=== PATIENT | female | born 1940 | race Caucasian/White ===

== ENCOUNTER → 2016-09-05 | Outpatient (CLI) | payer MEDICARE, BC ==
--- NOTE | 2016-09-09 10:31 | MM ---
Reason for exam: screening (asymptomatic). Last mammogram was performed 2 years and 7 months ago. History: Patient is postmenopausal and history of other cancer. Family history of breast cancer in sister at age 60, breast cancer in mother at age 79, breast cancer in paternal aunt at age 40, and breast cancer in maternal aunt. Benign left mammotome panel of the left breast, March 04, 2006. Benign excisional biopsy of the right breast, 1983. Took hormonal contraceptives for 2 years beginning at age 22. Took estrogen for 10 years beginning at age 49. Physical Findings: A clinical breast exam by your physician is recommended on an annual basis and results should be correlated with mammographic findings. MG 3D Screening Mammo W/Cad Bilateral CC and MLO view(s) were taken. Prior study comparison: November 09, 2015, bilateral MR breast bilat wo/w con. February 01, 2014, bilateral MG screening mammo w CAD. July 30, 2012, bilateral digital screening mammo w/CAD. The breast tissue is heterogeneously dense. This may lower the sensitivity of mammography. Previous mammotome biopsy within the left breast. Nodular asymmetry at a middle depth right breast above the retroareolar plane on the MLO view appears more defined from priors but seems to partially disperse on tomosynthesis images. A 6 month follow up is recommended. ASSESSMENT: Probably benign, BI-RAD 3 RECOMMENDATION: Follow-up diagnostic mammogram of the right breast in 6 months.
== END ==
LOC: RADMAMWWP 10:20
PROVIDERS: ATTEND Family Medicine
DX: Z12.31 Encounter for screening mammogram for malignant neoplasm of breast (principal)
CPT/HCPCS: 77063; G0202

== ENCOUNTER → 2016-09-11 | Outpatient (CLI) | payer MEDICARE, BC ==
--- NOTE | 2016-09-11 22:50 | CTL ---
EXAMINATION TYPE: CT Low Dose Lung DATE OF EXAM ORDERED: 09/11/2016 9:12 AM HISTORY: . Lung cancer screening CT DLP: [address] CTDI: 2.20 mGy Automated exposure control for dose reduction was used. SCREENING VISIT: Initial COMPARISON: None TECHNIQUE: Low dose computed tomography scan was performed through the chest at 1 mm thick sections a nd reconstructed images in the coronal plane at [address] DIAGNOSTIC QUALITY: Limited, but interpretable FINDINGS: LUNG NODULES: None. LUNGS: COPD: Severity: Mild. Correlate for chronic bronchitis. Fibrosis: Severity: None Lymph nodes: No abnormal enlarged mediastinal adenopathy. A few shotty lymph nodes are the pretrachea l space. Other findings: Ascending thoracic aortic flow-limiting pulmonary artery is 3.3 cm. The main pulmonar y artery bifurcation is 2.0 cm. RIGHT PLEURAL SPACE: Effusion: None Calcification: None Thickening: None Pneumothorax: None LEFT PLEURAL SPACE: Effusion: None Calcification: None Thickening: None Pneumothorax: None HEART: Heart Size: Normal Coronary calcification: Moderate Pericardial effusion: None OTHER FINDINGS: Upper abdomen: Unremarkable Bony thorax: Normal Supraclavicular region: No abnormal adenopathy Other: None IMPRESSION: No suspicious changes for primary or metastatic neoplasm within the chest. FOLLOW UP CT CHEST RECOMMENDATION: Follow-up chest CT one year screening in the absence of changing c linical symptoms. CT LUNG RAD: Lung-Rad 1 Negative
== END | disposition home or self-care (01) ==
LOC: RADCTMAIN 08:46
PROVIDERS: ATTEND Internal Medicine Critical Care Medicine
DX: Z12.2 Encounter for screening for malignant neoplasm of respiratory organs (principal); Z87.891 Personal history of nicotine dependence

== ENCOUNTER 2016-12-18 08:45 | Observation (INO) | payer MEDICARE, BC ==
[2016-12-18] MEDS ORDERED: SODIUM CHLORIDE 0.9% 500 ML IV STA (09:15)
--- NOTE | 2016-12-18 09:19 | ED ---
General Adult HPI - General Chief complaint: Weakness Stated complaint: weakness/nausea Time Seen by Provider: 12/18/16 09:00 Source: patient, RN notes reviewed Mode of arrival: ambulatory Limitations: no limitations - History of Present Illness Initial comments: This is a 76-year-old female who presents emergency Department complaining of not feeling well for the last 2 weeks. Patient states every night she started having some chest pressure and then feeling extremely weak. Patient states she then goes to bed and when she wakes up she feels fine this is been ongoing for 2 weeks. Patient states this morning however she woke up continued to have chest pressure mildly nauseated and continued to feel weak so she thought it was time she came into the emergency department. Patient states she feels as though the symptoms are consistent with symptoms of endocarditis that she had some 20 years ago. Patient does have 2 valve replacements. Patient is on Coumadin. Patient denies any fever chills. Patient denies any shortness of breath or difficulty breathing. Patient denies any headache patient denies numbness weakness. Patient denies vomiting or diarrhea. Patient denies any back pain. Patient denies dysuria hematuria urinary frequency. - Related Data Home Medications Medication Instructions Recorded Confirmed Albuterol Sulfate [Proair Hfa] 1 - 2 puff INHALATION RT-Q6H PRN 12/18/16 Calcium Carbonate/Vitamin D3 2 tab PO DAILY 12/18/16 12/18/16 [Calcium 600-Vit D3 400 Caplet] Citalopram Hydrobromide [CeleXA] 20 mg PO DAILY 12/18/16 12/18/16 Fluticasone/Salmeterol [Advair 1 inhalation PO RT-BID 12/18/16 12/18/16 250-50 Diskus] LORazepam [Ativan] 1 mg PO HS PRN 12/18/16 12/18/16 One-A-Day Women's 65 Plus 1 tab PO DAILY 12/18/16 12/18/16 Warfarin [Coumadin] 2.5 mg PO MOTHSA 12/18/16 12/18/16 Warfarin [Coumadin] 5 mg PO SUTUWEFR 12/18/16 12/18/16 Zolpidem Tartrate [Ambien] 10 mg PO HS 12/18/16 12/18/16 Allergies Allergy/AdvReac Type Severity Reaction Status Date / Time No Known Allergies Allergy Verified 12/18/16 09:35 Review of Systems ROS Statement: Those systems with pertinent positive or pertinent negative responses have been documented in the HPI. ROS Other: All systems not noted in ROS Statement are negative. Past Medical History Past Medical History: No Reported History History of Any Multi-Drug Resistant Organisms: None Reported Past Surgical History: Cardiac Valve Replacement Additional Past Surgical History / Comment(s): bladder suspension Past Psychological History: Anxiety, Depression Smoking Status: Never smoker Past Alcohol Use History: None Reported Past Drug Use History: None Reported General Exam - General Exam Comments Initial Comments: GENERAL: Patient is well-developed and well-nourished. Patient is nontoxic and well- hydrated and is in mild distress. ENT: Neck is soft and supple. No significant lymphadenopathy is noted. Oropharynx is clear. Moist mucous membranes. Neck has full range of motion without eliciting any pain. EYES: The sclera were anicteric and conjunctiva were pink and moist. Extraocular movements were intact and pupils were equal round and reactive to light. Eyelids were unremarkable. PULMONARY: Unlabored respirations. Good breath sounds bilaterally. No audible rales rhonchi or wheezing was noted. CARDIOVASCULAR: There is a regular rate and rhythm without any murmurs gallops or rubs. ABDOMEN: Soft and nontender with normal bowel sounds. No palpable organomegaly was noted. There is no palpable pulsatile mass. SKIN: Skin is clear with no lesions or rashes and otherwise unremarkable. NEUROLOGIC: Patient is alert and oriented x3. Cranial nerves II through XII are grossly intact. Motor and sensory are also intact. Normal speech, volume and content. Symmetrical smile. MUSCULOSKELETAL: Normal extremities with adequate strength and full range of motion. No lower extremity swelling or edema. No calf tenderness. LYMPHATICS: No significant lymphadenopathy is noted PSYCHIATRIC: Normal psychiatric evaluation. Normal interpersonal interactions appears functionally intact in deals appropriately with others. No signs of depression. No signs of anxiety. Limitations: no limitations Course Vital Signs 12/18/16 12/18/16 08:55 09:58 Temperature 97.9 F Pulse Rate 68 58 L Respiratory 18 18 Rate Blood Pressure 128/59 145/64 O2 Sat by Pulse 96 97 Oximetry Medical Decision Making - Medical Decision Making EKG is normal sinus rhythm at 63 bpm WV interval is 146 dresses 88 QT interval is 456 QTC is 466 per patient's EKG shows no ST segment elevation or depression or T wave abnormalities are noted. Patient continues chest pain all in the emergency department and continue to feel weak. I spoke with Dr. Hoyt he agreed that we should admit the patient for 23 observation consult cardiology. I wrote admitting orders and I consult cardiology - Lab Data Result diagrams: 12/18/16 09:09 12/18/16 09:09 Lab Results 12/18/16 12/18/16 12/18/16 Range/Units 09:09 09:09 09:09 WBC 3.7 L (3.8-10.6) k/uL RBC 4.32 (3.80-5.40) m/uL Hgb 14.2 (11.4-16.0) gm/dL Hct 40.1 (34.0-46.0) % MCV 92.9 (80.0-100.0) fL MCH 33.0 (25.0-35.0) pg MCHC 35.5 (31.0-37.0) g/dL RDW 13.8 (11.5-15.5) % Plt Count 133 L (150-450) k/uL Neutrophils % 59 % Lymphocytes % 29 % Monocytes % 6 % Eosinophils % 3 % Basophils % 1 % Neutrophils # 2.2 (1.3-7.7) k/uL Lymphocytes # 1.1 (1.0-4.8) k/uL Monocytes # 0.2 (0-1.0) k/uL Eosinophils # 0.1 (0-0.7) k/uL Basophils # 0.0 (0-0.2) k/uL ESR 16 (0-20) mm/hr PT (9.0-12.0) sec INR (<1.2) APTT (22.0-30.0) sec Sodium 141 (137-145) mmol/L Potassium 4.7 (3.5-5.1) mmol/L Chloride 107 (98-107) mmol/L Carbon Dioxide 26 (22-30) mmol/L Anion Gap 8 mmol/L BUN 17 (7-17) mg/dL Creatinine 0.70 (0.52-1.04) mg/dL Est GFR (MDRD) Af Amer >60 (>60 ml/min/1.73 sqM) Est GFR (MDRD) Non-Af >60 (>60 ml/min/1.73 sqM) Glucose 86 (74-99) mg/dL Calcium 9.6 (8.4-10.2) mg/dL Magnesium 1.9 (1.6-2.3) mg/dL Total Bilirubin 1.0 (0.2-1.3) mg/dL AST 23 (14-36) U/L ALT 31 (9-52) U/L Alkaline Phosphatase 62 (38-126) U/L Total Creatine Kinase 38 (30-135) U/L CK-MB (CK-2) 0.9 (0.0-2.4) ng/mL CK-MB (CK-2) Rel Index 2.4 Troponin I <0.012 (0.000-0.034) ng/mL C-Reactive Protein <5.0 (<10.0) mg/L Total Protein 6.8 (6.3-8.2) g/dL Albumin 4.0 (3.5-5.0) g/dL Urine Color Urine Appearance (Clear) Urine pH (5.0-8.0) Ur Specific [place] (1.001-1.035) Urine Protein (Negative) Urine Glucose (UA) (Negative) Urine Ketones (Negative) Urine Blood (Negative) Urine Nitrite (Negative) Urine Bilirubin (Negative) Urine Urobilinogen (<2.0) mg/dL Ur Leukocyte Esterase (Negative) Urine RBC (0-5) /hpf Urine WBC (0-5) /hpf Ur Squamous Epith Cells (0-4) /hpf Amorphous Sediment (None) /hpf Urine Mucus (None) /hpf 12/18/16 12/18/16 Range/Units 09:09 09:55 WBC (3.8-10.6) k/uL RBC (3.80-5.40) m/uL Hgb (11.4-16.0) gm/dL Hct (34.0-46.0) % MCV (80.0-100.0) fL MCH (25.0-35.0) pg MCHC (31.0-37.0) g/dL RDW (11.5-15.5) % Plt Count (150-450) k/uL Neutrophils % % Lymphocytes % % Monocytes % % Eosinophils % % Basophils % % Neutrophils # (1.3-7.7) k/uL Lymphocytes # (1.0-4.8) k/uL Monocytes # (0-1.0) k/uL Eosinophils # (0-0.7) k/uL Basophils # (0-0.2) k/uL ESR (0-20) mm/hr PT 37.5 H (9.0-12.0) sec INR 3.8 H (<1.2) APTT 38.2 H (22.0-30.0) sec Sodium (137-145) mmol/L Potassium (3.5-5.1) mmol/L Chloride (98-107) mmol/L Carbon Dioxide (22-30) mmol/L Anion Gap mmol/L BUN (7-17) mg/dL Creatinine (0.52-1.04) mg/dL Est GFR (MDRD) Af Amer (>60 ml/min/1.73 sqM) Est GFR (MDRD) Non-Af (>60 ml/min/1.73 sqM) Glucose (74-99) mg/dL Calcium (8.4-10.2) mg/dL Magnesium (1.6-2.3) mg/dL Total Bilirubin (0.2-1.3) mg/dL AST (14-36) U/L ALT (9-52) U/L Alkaline Phosphatase (38-126) U/L Total Creatine Kinase (30-135) U/L CK-MB (CK-2) (0.0-2.4) ng/mL CK-MB (CK-2) Rel Index Troponin I (0.000-0.034) ng/mL C-Reactive Protein (<10.0) mg/L Total Protein (6.3-8.2) g/dL Albumin (3.5-5.0) g/dL Urine Color Yellow Urine Appearance Cloudy H (Clear) Urine pH 7.0 (5.0-8.0) Ur Specific [place] 1.015 (1.001-1.035) Urine Protein Negative (Negative) Urine Glucose (UA) Negative (Negative) Urine Ketones Negative (Negative) Urine Blood Negative (Negative) Urine Nitrite Negative (Negative) Urine Bilirubin Negative (Negative) Urine Urobilinogen <2.0 (<2.0) mg/dL Ur Leukocyte Esterase Large H (Negative) Urine RBC 3 (0-5) /hpf Urine WBC 18 H (0-5) /hpf Ur Squamous Epith Cells 8 H (0-4) /hpf Amorphous Sediment Rare H (None) /hpf Urine Mucus Rare H (None) /hpf Disposition Clinical Impression: Chest pain, Weakness Disposition: ADMITTED IP TO THIS HOSP Referrals: Boaz Chaudhary MD [Primary Care Provider] - 1-2 days Time of Disposition: 10:45
[2016-12-18 09:34] LABS: Basophils % (A) 1 %; CH 32.3; Eosinophils # (A) 0.1 k/uL (0-0.7); Eosinophils % (A) 3 %; HCT 40.1 % (34.0-46.0); HDW 2.87; HGB 14.2 gm/dL (11.4-16.0); Luc # (Auto) 0.06; Luc % (Auto) 2; Lymphocytes # (A) 1.1 k/uL (1.0-4.8); Lymphocytes % (A) 29 %; MCHC 35.5 g/dL (31.0-37.0); MCV 92.9 fL (80.0-100.0); Mean Platelet Volume 8.3; Monocytes # (A) 0.2 k/uL (0-1.0); Monocytes % (A) 6 %; Neutrophils # (A) 2.2 k/uL (1.3-7.7); Neutrophils % (A) 59 %; RBC 4.32 m/uL (3.80-5.40); RDW 13.8 % (11.5-15.5); WBC 3.7 k/uL (3.8-10.6); WBC (Perox) 3.52
[2016-12-18 09:42] LABS: INR 3.8 (<1.2); Partial Thromboplastin Time 38.2 sec (22.0-30.0); Prothrombin Time 37.5 sec (9.0-12.0)
[2016-12-18 09:45] LABS: ALT 31 U/L (9-52); AST 23 U/L (14-36); Alkaline Phosphatase 62 U/L (38-126); Anion Gap 8 mmol/L; Blood Urea Nitrogen 17 mg/dL (7-17); C Reactive Protein <5.0 mg/L (<10.0); Calcium 9.6 mg/dL (8.4-10.2); Carbon Dioxide 26 mmol/L (22-30); Chloride 107 mmol/L (98-107); Glucose 86 mg/dL (74-99); Magnesium 1.9 mg/dL (1.6-2.3); Non-African American GFR(MDRD) >60 (>60 ml/min/1.73 sqM); Potassium 4.7 mmol/L (3.5-5.1); Sodium 141 mmol/L (137-145); Total Protein 6.8 g/dL (6.3-8.2)
--- NOTE | 2016-12-18 09:46 | XR ---
EXAMINATION TYPE: XR chest 2V DATE OF EXAM: 12/18/2016 COMPARISON: NONE HISTORY: Chest palpitations and productive cough. History of COPD. TECHNIQUE: Frontal and lateral views of the chest are obtained. FINDINGS: There is no focal air space opacity, pleural effusion, or pneumothorax seen. There is pul monary hyperinflation and tapering of the peripheral vasculature compatible with the patient's known history of COPD. Intact midline sternotomy wires are present. The cardiac silhouette size is within n ormal limits. The osseous structures are intact. IMPRESSION: 1.No acute cardiopulmonary process. 2. Radiographic sequela of COPD.
[2016-12-18 10:03] LABS: Creatine Kinase 38 U/L (30-135)
[2016-12-18] MEDS ORDERED: ACETAMINOPHEN TAB 500 MG TAB PO STA (10:04)
[2016-12-18 10:15] LABS: Creatine Kinase MB 0.9 ng/mL (0.0-2.4); Troponin I <0.012 ng/mL (0.000-0.034)
[2016-12-18 10:24] LABS: Amorphous Sediment,Urine Rare /hpf; Appearance,Urine Cloudy (Clear); Bilirubin,Urine Negative (Negative); Glucose,Urine (UA) Negative (Negative); Ketones,Urine Negative (Negative); Leukocyte Esterase,Urine Large (Negative); Mucus,Urine Rare /hpf; Nitrite,Urine Negative (Negative); Particle Count 7735; Protein,Urine Negative (Negative); RBC,Urine 3 /hpf (0-5); Specific Gravity,Urine 1.015 (1.001-1.035); Squamous Epithelial Cell,Urine 8 /hpf (0-4); UA Billing (MACRO vs. MICRO) MICRO; Urobilinogen,Urine <2.0 mg/dL (<2.0); WBC,Urine 18 /hpf (0-5)
[2016-12-18 10:41] LABS: Erythrocyte Sedimentation Rate 16 mm/hr (0-20)
[2016-12-18] MEDS ORDERED: ASPIRIN 81 MG CHEW PO STA (10:45)
[2016-12-18] MEDS ORDERED: NITROGLYCERIN SL TABS 0.4 MG TAB SUBLINGUAL PRN (10:45)
[2016-12-18 13:08] VITALS: RESP 16
--- NOTE | 2016-12-18 14:24 | P.CRDCN ---
History of Present Illness Consult date: 12/18/16 History of present illness: This is a 76-year-old female. She is being seen and examined on the observation unit. She states with a previous few weeks by afternoon time she begins to feel increasingly weak, general malaise, increased fatigue, headache and chest pressure. She states the symptoms typically subside slowly throughout the remainder of the day and by morning she is back to her baseline. But when she arose Thursday morning the symptoms persisted throughout the day. Again this morning she woke up with the same symptoms. She denies palpitations , shortness of breath, nausea or vomiting. She has a history of mitral and aortic valve replacements in 1991 and is maintained on daily Coumadin. At the time of her surgery just prior to she developed bacterial endocarditis which was thought to be secondary to an abscessed tooth. She denies any other cardiac history. She is nondiabetic, nonhypertensive and states she has not had a cardiac catheterization or stress test since 1991. She denies ever having symptoms like this in the past. Review of Systems REVIEW OF SYSTEMS: No shortness of breath. No diaphoresis. She denies dizziness , blurred vision, double vision. No dyspnea on exertion. Patient denies any stomach discomfort. No nausea, vomiting. No hematochezia. No hematemesis. Denies any black stools or blood in his stools. No syncope. No palpitations. No cough. No recent fever or chills. Denies dysuria or hematuria. No muscle weakness or numbness. Past Medical History Past Medical History: No Reported History Additional Past Medical History / Comment(s): Bacterial endocarditis s/p tooth abscess - 1991 History of Any Multi-Drug Resistant Organisms: None Reported Past Surgical History: Cardiac Valve Replacement Additional Past Surgical History / Comment(s): Mitral and aortic valve replacement - 1991. Bladder suspension Past Psychological History: Anxiety, Depression Smoking Status: Never smoker Past Alcohol Use History: None Reported Past Drug Use History: None Reported Medications and Allergies Home Medications Medication Instructions Recorded Confirmed Type Albuterol Sulfate [Proair Hfa] 1 - 2 puff INHALATION RT-Q6H PRN 12/18/16 History Calcium Carbonate/Vitamin D3 2 tab PO DAILY 12/18/16 12/18/16 History [Calcium 600-Vit D3 400 Caplet] Citalopram Hydrobromide [CeleXA] 20 mg PO DAILY 12/18/16 12/18/16 History Fluticasone/Salmeterol [Advair 1 inhalation PO RT-BID 12/18/16 12/18/16 History 250-50 Diskus] LORazepam [Ativan] 1 mg PO HS PRN 12/18/16 12/18/16 History One-A-Day Women's 65 Plus 1 tab PO DAILY 12/18/16 12/18/16 History Warfarin [Coumadin] 2.5 mg PO MOTHSA 12/18/16 12/18/16 History Warfarin [Coumadin] 5 mg PO SUTUWEFR 12/18/16 12/18/16 History Zolpidem Tartrate [Ambien] 10 mg PO HS 12/18/16 12/18/16 History Allergies Allergy/AdvReac Type Severity Reaction Status Date / Time No Known Allergies Allergy Verified 12/18/16 09:35 Physical Exam Vitals: Vital Signs Temp Pulse Pulse Resp BP BP Pulse Ox 12/18/16 13:07 97.5 F L 57 L 16 144/58 95 12/18/16 11:24 98 F 56 L 18 139/65 95 12/18/16 11:00 56 L 18 141/59 97 12/18/16 09:58 58 L 18 145/64 97 12/18/16 08:55 97.9 F 68 18 128/59 96 Intake and Output 12/17/16 12/18/16 12/18/16 22:59 06:59 14:59 Other: Weight 55.338 kg Patient Weight 12/19/16 06:59 Weight 55.338 kg GENERAL: This is a 76-year-old female in no apparent distress at the time of my examination appears her stated age. HEENT: Head is atraumatic, normocephalic. Pupils are equal, round. Sclerae anicteric. Conjunctivae are clear. Mucous membranes of the mouth are moist. Neck is supple. There is no jugular venous distention. No carotid bruit is heard. LUNGS: Clear to auscultation no wheezes, rales or rhonchi. No chest wall tenderness is noted on palpation or with deep breathing. HEART: Regular rate and rhythm audible aortic and mitral click. S1 and S2 heard. ABDOMEN: Soft, nontender. Bowel sounds are heard. No organomegaly noted. EXTREMITIES: 2+ peripheral pulses with no evidence of peripheral edema and no calf tenderness noted. NEUROLOGIC: Patient is awake, alert and oriented x3. Results 12/18/16 09:09 12/18/16 09:09 Cardiac Enzymes 12/18/16 12/18/16 Range/Units 09:09 09:09 AST 23 (14-36) U/L CK-MB (CK-2) 0.9 (0.0-2.4) ng/mL Troponin I <0.012 (0.000-0.034) ng/mL Coagulation 12/18/16 Range/Units 09:09 PT 37.5 H (9.0-12.0) sec APTT 38.2 H (22.0-30.0) sec CBC 12/18/16 Range/Units 09:09 WBC 3.7 L (3.8-10.6) k/uL RBC 4.32 (3.80-5.40) m/uL Hgb 14.2 (11.4-16.0) gm/dL Hct 40.1 (34.0-46.0) % Plt Count 133 L (150-450) k/uL Comprehensive Metabolic Panel 12/18/16 Range/Units 09:09 Sodium 141 (137-145) mmol/L Potassium 4.7 (3.5-5.1) mmol/L Chloride 107 (98-107) mmol/L Carbon Dioxide 26 (22-30) mmol/L BUN 17 (7-17) mg/dL Creatinine 0.70 (0.52-1.04) mg/dL Glucose 86 (74-99) mg/dL Calcium 9.6 (8.4-10.2) mg/dL AST 23 (14-36) U/L ALT 31 (9-52) U/L Alkaline Phosphatase 62 (38-126) U/L Total Protein 6.8 (6.3-8.2) g/dL Albumin 4.0 (3.5-5.0) g/dL Current Medications Generic Name Dose Route Start Last Admin Trade Name Freq PRN Reason Stop Dose Admin Aspirin 325 mg 12/19/16 09:00 Aspirin PO DAILY MICHELLE Nitroglycerin 1 inch 12/18/16 12:00 Nitro-Bid Oint TOPICAL Q6HR MICHELLE Nitroglycerin 0.4 mg 12/18/16 10:45 Nitrostat SUBLINGUAL Q5M PRN Chest Pain Intake and Output 12/17/16 12/18/16 12/18/16 22:59 06:59 14:59 Other: Weight 55.338 kg Patient Weight 12/19/16 06:59 Weight 55.338 kg 12/18/16 09:09 12/18/16 09:09 - EKG Interpretation EKG: sinus rhythm, normal QRS (No old EKG for comparison), normal ST/T Assessment and Plan Plan: ASSESSMENT 1. Generalized weakness 2. Chest pain, atypical 3. 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 We will repeat an echocardiogram for comparison. Continue ongoing telemetry monitoring at this time. Nurse Practitioner note has been reviewed, I agree with a documented findings and plan of care. Patient was seen and examined.
[2016-12-18] MEDS: NITROGLYCERIN OINT 1 INCH/GM PACKET TOPICAL SCH ×2 (15:08→17:55)
[2016-12-18 15:31] LABS: Creatine Kinase 36 U/L (30-135)
[2016-12-18 15:44] LABS: Creatine Kinase MB 0.8 ng/mL (0.0-2.4); Troponin I <0.012 ng/mL (0.000-0.034)
[2016-12-18 16:07] VITALS: BP 141/62; PULSE 55; TEMP 97.8
--- NOTE | 2016-12-18 17:58 | P.HPIM ---
History of Present Illness H&P Date: 12/18/16 Chief Complaint: Weakness and nausea 76-year-old female known to our practice who presented to the emergency department complaining of general malaise and not feeling well for prophylaxis 2 weeks patient states every night she started having some chest posterior feeling extremely weak. Patient states she then goes to bed when she wakes up she feels fine this is been going on for 2 weeks. Patient states this morning however she woke up and continued to have chest pressure mild nausea and continued to feel weak so she thought it was time she came to the emergency room patient states she felt so-so the symptoms were consistent with when she had endocarditis some 20 years ago. Patient does have 2 valve replacements is on Coumadin however she denies fever and denies chills denies shortness of breath and difficulty breathing she does complain of some mild back discomfort denies vomiting or diarrhea. Patient also stated that she was experiencing some little bit of burning and tingling when she urinated Review of Systems Constitutional: Reports malaise Cardiovascular: Reports as per HPI, Reports lightheadedness Respiratory: Reports as per HPI Gastrointestinal: Reports as per HPI Genitourinary: Reports dysuria (Very mild dysuria) Menstruation: Reports as per HPI Musculoskeletal: Reports as per HPI Integumentary: Reports as per HPI Neurological: Reports as per HPI Psychiatric: Reports as per HPI Past Medical History Past Medical History: No Reported History Additional Past Medical History / Comment(s): Bacterial endocarditis s/p tooth abscess - 1991 History of Any Multi-Drug Resistant Organisms: None Reported Past Surgical History: Cardiac Valve Replacement Additional Past Surgical History / Comment(s): Mitral and aortic valve replacement - 1991. Bladder suspension Past Anesthesia/Blood Transfusion Reactions: No Reported Reaction Past Psychological History: Anxiety, Depression Smoking Status: Never smoker Past Alcohol Use History: None Reported Past Drug Use History: None Reported - Past Family History Father Additional Family Medical History / Comment(s): endocarditis, rheumatic fever at age 32 Mother Additional Family Medical History / Comment(s): "embolism at 90" Medications and Allergies Home Medications Medication Instructions Recorded Confirmed Type Albuterol Sulfate [Proair Hfa] 1 - 2 puff INHALATION RT-Q6H PRN 12/18/16 History Calcium Carbonate/Vitamin D3 2 tab PO DAILY 12/18/16 12/18/16 History [Calcium 600-Vit D3 400 Caplet] Citalopram Hydrobromide [CeleXA] 20 mg PO DAILY 12/18/16 12/18/16 History Fluticasone/Salmeterol [Advair 1 inhalation PO RT-BID 12/18/16 12/18/16 History 250-50 Diskus] LORazepam [Ativan] 1 mg PO HS PRN 12/18/16 12/18/16 History One-A-Day Women's 65 Plus 1 tab PO DAILY 12/18/16 12/18/16 History Warfarin [Coumadin] 2.5 mg PO MOTHSA 12/18/16 12/18/16 History Warfarin [Coumadin] 5 mg PO SUTUWEFR 12/18/16 12/18/16 History Zolpidem Tartrate [Ambien] 10 mg PO HS 12/18/16 12/18/16 History Allergies Allergy/AdvReac Type Severity Reaction Status Date / Time No Known Allergies Allergy Verified 12/18/16 09:35 Physical Exam Osteopathic Statement: *. No significant issues noted on an osteopathic structural exam other than those noted in the History and Physical/Consult. Vitals: Vital Signs Temp Pulse Pulse Resp BP BP Pulse Ox 12/18/16 16:06 97.8 F 55 L 16 141/62 95 12/18/16 13:07 97.5 F L 57 L 16 144/58 95 12/18/16 11:24 98 F 56 L 18 139/65 95 12/18/16 11:00 56 L 18 141/59 97 12/18/16 09:58 58 L 18 145/64 97 12/18/16 08:55 97.9 F 68 18 128/59 96 Intake and Output 12/18/16 12/18/16 12/18/16 06:59 14:59 22:59 Other: Weight 55.338 kg Patient Weight 12/19/16 06:59 Weight 55.338 kg General: [Patient awake, alert and oriented times 3. Patient in no acute distress.] HEENT: [PERRL. EOMI. No pharyngeal erythema or exudate.] Neck: [No adenopathy.] Cardiac: [Heart regular in rate and rhythm. No S3. No S4. No clicks, rubs. No murmur.] Lungs: [Clear to auscultation bilaterally.] Abdomen: [No mass. No organomegaly. Bowel sounds presnt and normoactive in all 4 quadrants.] Extremes: [No edema no cyanosis no claudication normal pulses] : [] Musculoskeletal: [No joint erythema, edema or tenderness.] Skin: [No rash.] Neurologic: [No lateralizing deficits. CN II - XII grossly intact.] Lymphatic: [No adenopathy.] Results Results: Results of UA noted CBC & Chem 7: 12/18/16 09:09 12/18/16 09:09 Labs: Abnormal Lab Results - Last 24 Hours (Table) 12/18/16 12/18/16 12/18/16 Range/Units 09:09 09:09 09:55 WBC 3.7 L (3.8-10.6) k/uL Plt Count 133 L (150-450) k/uL PT 37.5 H (9.0-12.0) sec INR 3.8 H (<1.2) APTT 38.2 H (22.0-30.0) sec Urine Appearance Cloudy H (Clear) Ur Leukocyte Esterase Large H (Negative) Urine WBC 18 H (0-5) /hpf Ur Squamous Epith Cells 8 H (0-4) /hpf Amorphous Sediment Rare H (None) /hpf Urine Mucus Rare H (None) /hpf Microbiology - Last 24 Hours (Table) 12/18/16 09:55 Urine Culture - Preliminary Urine,Voided Thrombosis Risk Factor Assmnt - Choose All That Apply Each Risk Factor Represents 3 Points: Age 75 years or older Thrombosis Risk Factor Assessment Total Risk Factor Score: 3 Thrombosis Risk Factor Assessment Level: Moderate Risk Assessment and Plan (1) Dysuria Status: Acute (2) Weakness Status: Acute Plan: Labs were reviewed troponins were all negative EKG appeared unremarkable, white count was not elevated UA was noted to large leukocyte esterase 18 white count After examining patient and discussing results with patient she is in agreement her going to treat for a urinary tract infection with Bactrim DS twice daily 5 days I will see her in the office Thursday They also agreed that if any other symptoms arose that she would contact me or return to the emergency room Time with Patient: Greater than 30
--- NOTE | 2016-12-18 18:05 | P.DS ---
Providers Date of admission: 12/18/16 10:45 Expected date of discharge: 12/18/16 Attending physician: Cory Hoyt Consults: 12/18/16 10:45 Consult Physician Urgent Consulting Provider: [facility] Consult Reason/Comments: Chest pain Do you want consulting provider notified?: Yes Primary care physician: Boaz Chaudhary - Discharge Diagnosis(es) (1) Dysuria Current Visit: Yes Status: Acute (2) Weakness Current Visit: Yes Status: Acute Hospital Course: General: [Patient awake, alert and oriented times 3. Patient in no acute distress.] HEENT: [PERRL. EOMI. No pharyngeal erythema or exudate.] Neck: [No adenopathy.] Cardiac: [Heart regular in rate and rhythm. No S3. No S4. No clicks, rubs. No murmur.] Lungs: [Clear to auscultation bilaterally.] Abdomen: [No mass. No organomegaly. Bowel sounds presnt and normoactive in all 4 quadrants.] Extremes: [No edema no cyanosis no claudication normal pulses] : [] Musculoskeletal: [No joint erythema, edema or tenderness.] Skin: [No rash.] Neurologic: [No lateralizing deficits. CN II - XII grossly intact.] Lymphatic: [No adenopathy.] At this time this patient denied chest pain and states she feels fine She agrees that she like to be discharged home I will see her on Thursday and initiate a cardiac workup if warranted Patient Condition at Discharge: Good Plan - Discharge Summary New Discharge Prescriptions: New Sulfamethox-Tmp 800-160Mg [Bactrim DS 800-160 mg] 1 tab PO Q12HR #10 tab No Action One-A-Day Women's 65 Plus 1 tab PO DAILY Fluticasone/Salmeterol [Advair 250-50 Diskus] 1 inhalation PO RT-BID Albuterol Sulfate [Proair Hfa] 1 - 2 puff INHALATION RT-Q6H PRN PRN Reason: Shortness Of Breath Calcium Carbonate/Vitamin D3 [Calcium 600-Vit D3 400 Caplet] 2 tab PO DAILY Zolpidem Tartrate [Ambien] 10 mg PO HS Warfarin [Coumadin] 2.5 mg PO MOTHSA Warfarin [Coumadin] 5 mg PO SUTUWEFR LORazepam [Ativan] 1 mg PO HS PRN PRN Reason: Anxiety Citalopram Hydrobromide [CeleXA] 20 mg PO DAILY Discharge Medication List Albuterol Sulfate [Proair Hfa] 1 - 2 puff INHALATION RT-Q6H PRN 12/18/16 [ History] Calcium Carbonate/Vitamin D3 [Calcium 600-Vit D3 400 Caplet] 2 tab PO DAILY 08/01 [History] Citalopram Hydrobromide [CeleXA] 20 mg PO DAILY 12/18/16 [History] Fluticasone/Salmeterol [Advair 250-50 Diskus] 1 inhalation PO RT-BID 12/18/16 [ History] LORazepam [Ativan] 1 mg PO HS PRN 12/18/16 [History] One-A-Day Women's 65 Plus 1 tab PO DAILY 12/18/16 [History] Sulfamethox-Tmp 800-160Mg [Bactrim DS 800-160 mg] 1 tab PO Q12HR #10 tab [Rx] Warfarin [Coumadin] 2.5 mg PO MOTHSA 12/18/16 [History] Warfarin [Coumadin] 5 mg PO SUTUWEFR 12/18/16 [History] Zolpidem Tartrate [Ambien] 10 mg PO HS 12/18/16 [History] Follow up Appointment(s)/Referral(s): Boaz Chaudhary MD [Primary Care Provider] - 1-2 days
[2016-12-18] MEDS ORDERED: LORazepam 1 MG TAB PO PRN (18:06)
[2016-12-18] MEDS ORDERED: SYMBICORT 80-4.5 MCG INHALER INHALATION SCH (20:00)
[2016-12-18] MEDS ORDERED: ZOLPIDEM 10 MG TAB PO SCH (21:00)
[2016-12-19] MEDS ORDERED: ASPIRIN 325 MG TAB PO SCH (09:00)
[2016-12-19] MEDS ORDERED: CITALOPRAM HYDROBROMIDE 20 MG TAB PO SCH (09:00)
[2016-12-19] MEDS ORDERED: MULTIVITAMINS, THERA 1 EACH TAB PO SCH (12:00)
[2016-12-19] MEDS ORDERED: CALCIUM CARB-VIT D 500MG-200UN 1 EACH TAB PO SCH (12:00)
--- NOTE | 2016-12-19 12:38 | ECHOF ---
Referral Reason:chest pain MEASUREMENTS -------- HEIGHT: 154.9 cm WEIGHT: 55.3 kg BP: 139/65 RVIDd: 2.3 cm (< 3.3) IVSd: 1.5 cm (0.6 - 1.1) LVIDd: 3.8 cm (3.9 - 5.3) LVPWd: 1.6 cm (0.6 - 1.1) IVSs: 1.8 cm LVIDs: 2.5 cm LVPWs: 1.4 cm LA Diam: 3.3 cm (2.7 - 3.8) Ao Diam: 2.8 cm (2.0 - 3.7) MV E Ruddy: 1.41 m/s MV DecT: 392 ms MV A Ruddy: 1.28 m/s MV E/A Ratio: 1.10 AV maxP.45 mmHg AV meanP.07 mmHg RAP: 5.00 mmHg RVSP: 34.51 mmHg FINDINGS -------- Sinus rhythm. This was a technically difficult study with suboptimal views. The left ventricular size is normal. There is moderate concentric left ventricular hypertrophy. Overall left ventricular systolic function is normal with, an EF between 60 - 65 %. The right ventricle is normal in size and function. The left atrial size is normal. The right atrium is normal in size. 1.5mg of Definity was utilized for enhancement of images Peak/mean gradient across the Aortic Valve is 27.45mmHg / 15.07mmHg. Normally functioning mechanical prosthetic valve. The peak and mean MV gradients are 7.05mmHg 2.90mmHg as measured by doppler. Mechanical St. Adin MV. Mild tricuspid regurgitation present. There is borderline pulmonary hypertension. Trace/mild (physiologic) pulmonic regurgitation. The aortic root size is normal. Normal inferior vena cava with normal inspiratory collapse consistent with estimated right atrial pressure of 5 mmHg. There is no pericardial effusion. CONCLUSIONS -------- 1. Sinus rhythm. 2. Normally functioning mechanical prosthetic valve. 3. The peak and mean MV gradients are 7.05mmHg 2.90mmHg as measured by doppler. 4. Mechanical St. Adin MV. 5. Mild tricuspid regurgitation present. 6. There is borderline pulmonary hypertension. 7. Trace/mild (physiologic) pulmonic regurgitation. 8. The aortic root size is normal. 9. Normal inferior vena cava with normal inspiratory collapse consistent with estimated right atrial pressure of 5 mmHg. 10. There is no pericardial effusion. 11. This was a technically difficult study with suboptimal views. 12. The left ventricular size is normal. 13. There is moderate concentric left ventricular hypertrophy. 14. Overall left ventricular systolic function is normal with, an EF between 60 - 65 %. 15. The right ventricle is normal in size and function. 16. The left atrial size is normal. 17. 1.5mg of Definity was utilized for enhancement of images 18. Peak/mean gradient across the Aortic Valve is 27.45mmHg / 15.07mmHg. SR. MEDIA MANAGER: Geetha Sousa RDCS
[2016-12-19] MEDS ORDERED: WARFARIN 5 MG TAB PO SCH (18:00)
[2016-12-20] MEDS ORDERED: WARFARIN 2.5 MG TAB PO SCH (18:00)
== END 2016-12-18 18:27 | disposition home or self-care (01) ==
LOC: EC 08:45 → 3OBS 10:45
PROVIDERS: ADMIT Family Medicine; ATTEND Family Medicine
DX: N39.0 Urinary tract infection, site not specified (principal); R53.1 Weakness; R07.89 Other chest pain; F32.9 Major depressive disorder, single episode, unspecified; F41.9 Anxiety disorder, unspecified; Z95.2 Presence of prosthetic heart valve; Z79.01 Long term (current) use of anticoagulants; Z79.51 Long term (current) use of inhaled steroids; Z79.899 Other long term (current) drug therapy; Z86.79 Personal history of other diseases of the circulatory system
CPT/HCPCS: 96360 ×2; 99285 ×2; 36415; 93005; 80053; 85652; 82550; 82553; 83735; 84484; 85025; 85610; 85730; 86140; 81001; 87040; 87086; 71020; G0378; C8929; Q9957; 93306

== ENCOUNTER → 2017-03-09 | Outpatient (CLI) | payer MEDICARE, BC ==
--- NOTE | 2017-03-09 12:03 | MM ---
Reason for exam: follow-up at short interval from prior study. Last mammogram was performed 6 months ago. History: Patient is postmenopausal and history of other cancer. Family history of breast cancer in sister at age 60, breast cancer in mother at age 79, breast cancer in paternal aunt at age 40, and breast cancer in maternal aunt. Benign left mammotome panel of the left breast, March 04, 2006. Benign excisional biopsy of the right breast, 1983. Took hormonal contraceptives for 2 years beginning at age 22. Took estrogen for 10 years beginning at age 49. Physical Findings: Nurse did not find any significant physical abnormalities on exam. MG 3D Diag Mammo W/Cad RT Spot compression CC, spot compression MLO, and ML view(s) were taken of the right breast. Prior study comparison: September 05, 2016, bilateral MG 3d screening mammo w/cad. February 01, 2014, bilateral MG screening mammo w CAD. The breast tissue is heterogeneously dense. This may lower the sensitivity of mammography. No suspicious abnormality. The previous abnormality is not seen on today's exam and represents fibroglandular tissue on the prior/summation overlap. These results were verbally communicated with the patient and result sheet given to the patient on 03/09/17. ASSESSMENT: Negative, BI-RAD 1 RECOMMENDATION: Return to routine screening mammogram schedule for both breasts. Back on schedule for August 2017.
== END | disposition home or self-care (01) ==
LOC: RADMAMWWP 11:14
PROVIDERS: ATTEND Family Medicine
DX: R92.8 Other abnormal and inconclusive findings on diagnostic imaging of breast (principal)
CPT/HCPCS: G0206; G0279

== ENCOUNTER 2017-06-17 07:28 | Emergency (ER) | payer MEDICARE, BC ==
[2017-06-17] MEDS ORDERED: IBUPROFEN 400 MG TAB PO STA (07:47)
[2017-06-17] MEDS ORDERED: ACETAMINOPHEN TAB 500 MG TAB PO STA (07:48)
--- NOTE | 2017-06-17 08:26 | XR ---
EXAMINATION TYPE: XR chest 2V DATE OF EXAM: 06/17/2017 COMPARISON: Prior chest x-ray 12/18/2016 HISTORY: Cough and fever, congestion TECHNIQUE: Frontal and lateral views of the chest are obtained. FINDINGS: There is no focal air space opacity, pleural effusion, or pneumothorax seen. The cardiac silhouette size is stable. The patient is post median sternotomy. Bone mineralization is decreased. The osseous structures are intact. There is eventration of the hemidiaphragms. Prominent lung volume may be indicative of COPD. Linear density superimposed over the left atrium may represent post mitral valve replacement, correlate with patient's surgical history. Coronary artery calcifications are pre sent. The aorta is dense. There is bronchial wall thickening. IMPRESSION: Correlate for bronchitis, reactive airways disease. Additional findings above.
--- NOTE | 2017-06-17 09:28 | ED ---
URI HPI - General Chief Complaint: Upper Respiratory Infection Stated Complaint: Chest cold Time Seen by Provider: 06/17/17 07:41 Source: patient Mode of arrival: ambulatory Limitations: no limitations - History of Present Illness Initial Comments: Patient complains of a cough. She has a fever. Her symptoms have been present for less than one day. She did not hit her flu shot. She has no neck pain or stiffness. She has no chest pain, belly pain, back pain. She has no lightheadedness or dizziness. She has had no sick a be or presyncope. She has taken no medication for her fever. She has had no travel. - Related Data Home Medications Medication Instructions Recorded Confirmed Albuterol Sulfate [Proair Hfa] 1 - 2 puff INHALATION RT-Q6H PRN 12/18/16 Citalopram Hydrobromide [CeleXA] 20 mg PO DAILY 12/18/16 06/17/17 Fluticasone/Salmeterol [Advair 1 puff INHALATION RT-BID 12/18/16 06/17/17 250-50 Diskus] LORazepam [Ativan] 1 mg PO TID PRN 12/18/16 06/17/17 Warfarin [Coumadin] 2.5 mg PO FR 12/18/16 06/17/17 Zolpidem Tartrate [Ambien] 10 mg PO HS 12/18/16 06/17/17 Calcium Carbonate [Calcium] 600 mg PO DAILY 06/17/17 06/17/17 Carboxymethylcellulose Sodium 1 - 2 drop BOTH EYES QID PRN 06/17/17 06/17/17 [Refresh Tears] Multivitamins, Thera [Multivitamin 1 tab PO DAILY 06/17/17 06/17/17 (formulary)] Warfarin [Coumadin] 5 mg PO SUMOTUWETHSA 06/17/17 06/17/17 Previous Rx's Medication Instructions Recorded Oseltamivir [Tamiflu] 75 mg PO Q12HR #10 cap 06/17/17 Allergies Allergy/AdvReac Type Severity Reaction Status Date / Time No Known Allergies Allergy Verified 06/17/17 09:12 Review of Systems ROS Statement: Those systems with pertinent positive or pertinent negative responses have been documented in the HPI. ROS Other: All systems not noted in ROS Statement are negative. Past Medical History Past Medical History: Asthma Additional Past Medical History / Comment(s): Bacterial endocarditis s/p tooth abscess - 1991 History of Any Multi-Drug Resistant Organisms: None Reported Past Surgical History: Cardiac Valve Replacement Additional Past Surgical History / Comment(s): Mitral and aortic valve replacement - 1991. Bladder suspension Past Anesthesia/Blood Transfusion Reactions: No Reported Reaction Past Psychological History: Anxiety, Depression Smoking Status: Never smoker Past Alcohol Use History: None Reported Past Drug Use History: None Reported - Past Family History Father Additional Family Medical History / Comment(s): endocarditis, rheumatic fever at age 32 Mother Additional Family Medical History / Comment(s): "embolism at 90" General Exam Limitations: no limitations General appearance: alert, in no apparent distress Head exam: Present: atraumatic, normocephalic, normal inspection Eye exam: Present: normal appearance, PERRL, EOMI. Absent: scleral icterus, conjunctival injection, periorbital swelling ENT exam: Present: normal exam, mucous membranes moist Neck exam: Present: normal inspection. Absent: tenderness, meningismus, lymphadenopathy Respiratory exam: Present: normal lung sounds bilaterally. Absent: respiratory distress, wheezes, rales, rhonchi, stridor Cardiovascular Exam: Present: regular rate, normal rhythm, normal heart sounds. Absent: systolic murmur, diastolic murmur, rubs, gallop, clicks GI/Abdominal exam: Present: soft, normal bowel sounds. Absent: distended, tenderness, guarding, rebound, rigid Extremities exam: Present: normal inspection, full ROM, normal capillary refill. Absent: tenderness, pedal edema, joint swelling, calf tenderness Back exam: Present: normal inspection Neurological exam: Present: alert, oriented X3, CN II-XII intact Psychiatric exam: Present: normal affect, normal mood Skin exam: Present: warm, dry, intact, normal color. Absent: rash Course Vital Signs 06/17/17 07:35 Temperature 101.6 F H Pulse Rate 89 Respiratory 17 Rate Blood Pressure 108/57 O2 Sat by Pulse 95 Oximetry Medical Decision Making - Medical Decision Making Patient complains of a cough and fever. She is flu positive. I gave her Tylenol and Motrin. I prescribed her Tamiflu. She is feeling better. She is stable for discharge. - Lab Data Lab Results 06/17/17 Range/Units 07:55 Influenza Type A RNA Detected H (Not Detectd) Influenza Type B (PCR) Not Detected (Not Detectd) Disposition Clinical Impression: Influenza Disposition: HOME SELF-CARE Condition: Good Instructions: Upper Respiratory Infection (ED) Prescriptions: Oseltamivir [Tamiflu] 75 mg PO Q12HR #10 cap Referrals: Boaz Chaudhary MD [Primary Care Provider] - 1-2 days Time of Disposition: 09:28
[2017-06-17 09:44] VITALS: BP 104/70; PULSE 80; RESP 20; TEMP 99
== END 2017-06-17 09:44 | disposition home or self-care (01) ==
LOC: EC 07:28
DX: J11.1 Influenza due to unidentified influenza virus with other respiratory manifestations (principal); J45.909 Unspecified asthma, uncomplicated; F32.9 Major depressive disorder, single episode, unspecified; F41.9 Anxiety disorder, unspecified; Z79.01 Long term (current) use of anticoagulants; Z79.51 Long term (current) use of inhaled steroids; Z79.899 Other long term (current) drug therapy
CPT/HCPCS: 71046; 87502; 99283

== ENCOUNTER 2017-07-13 15:50 | Emergency (ER) | payer MEDICARE, BC ==
[2017-07-13 16:05] VITALS: TEMP 98.2
[2017-07-13] MEDS ORDERED: ACETAMINOPHEN TAB 500 MG TAB PO STA (16:39)
--- NOTE | 2017-07-13 16:44 | ED ---
General Adult HPI - General Chief complaint: Headache Stated complaint: headache Time Seen by Provider: 07/13/17 16:00 Source: patient, RN notes reviewed Mode of arrival: ambulatory Limitations: no limitations - History of Present Illness Initial comments: This is a 77-year-old female presents emergency Department with 2 valve replacements back in the 90s. Patient remains on Coumadin at this time. Patient states she's had an intermittent headache for the last week or so. Patient states it's been intermittent but when it comes it is fairly significant. Patient states she also fell about 4 days ago and hit the side of her head on a dresser but did not lose consciousness did not think she hit very hard and has no area of tenderness on her head. Patient states the headache is intermittent and she does not normally get headaches. Patient states in the middle of this intermittent headache symptom patient did have influenza and was treated with Tamiflu. Patient states she's had no recent fevers. Patient denies any numbness weakness. Patient denies any patient discharge. Patient denies any visual disturbance. Patient states she hasn't had any abdominal pain patient denies any nausea vomiting or any diarrhea. - Related Data Home Medications Medication Instructions Recorded Confirmed Albuterol Sulfate [Proair Hfa] 1 - 2 puff INHALATION RT-Q6H PRN 12/18/16 Citalopram Hydrobromide [CeleXA] 20 mg PO DAILY 12/18/16 06/17/17 Fluticasone/Salmeterol [Advair 1 puff INHALATION RT-BID 12/18/16 06/17/17 250-50 Diskus] LORazepam [Ativan] 1 mg PO TID PRN 12/18/16 06/17/17 Warfarin [Coumadin] 2.5 mg PO FR 12/18/16 06/17/17 Zolpidem Tartrate [Ambien] 10 mg PO HS 12/18/16 06/17/17 Calcium Carbonate [Calcium] 600 mg PO DAILY 06/17/17 06/17/17 Carboxymethylcellulose Sodium 1 - 2 drop BOTH EYES QID PRN 06/17/17 06/17/17 [Refresh Tears] Multivitamins, Thera [Multivitamin 1 tab PO DAILY 06/17/17 06/17/17 (formulary)] Warfarin [Coumadin] 5 mg PO SUMOTUWETHSA 06/17/17 06/17/17 Previous Rx's Medication Instructions Recorded Oseltamivir [Tamiflu] 75 mg PO Q12HR #10 cap 06/17/17 Allergies Allergy/AdvReac Type Severity Reaction Status Date / Time No Known Allergies Allergy Verified 06/17/17 09:12 Review of Systems ROS Statement: Those systems with pertinent positive or pertinent negative responses have been documented in the HPI. ROS Other: All systems not noted in ROS Statement are negative. Past Medical History Past Medical History: Asthma Additional Past Medical History / Comment(s): Bacterial endocarditis s/p tooth abscess - 1991 History of Any Multi-Drug Resistant Organisms: None Reported Past Surgical History: Cardiac Valve Replacement Additional Past Surgical History / Comment(s): Mitral and aortic valve replacement - 1991. Bladder suspension Past Anesthesia/Blood Transfusion Reactions: No Reported Reaction Past Psychological History: Anxiety, Depression Smoking Status: Never smoker Past Alcohol Use History: None Reported Past Drug Use History: None Reported - Past Family History Father Additional Family Medical History / Comment(s): endocarditis, rheumatic fever at age 32 Mother Additional Family Medical History / Comment(s): "embolism at 90" General Exam - General Exam Comments Initial Comments: GENERAL: Patient is well-developed and well-nourished. Patient is nontoxic and well- hydrated and is in mild distress. ENT: Neck is soft and supple. No significant lymphadenopathy is noted. Oropharynx is clear. Moist mucous membranes. Neck has full range of motion without eliciting any pain. EYES: The sclera were anicteric and conjunctiva were pink and moist. Extraocular movements were intact and pupils were equal round and reactive to light. Eyelids were unremarkable. PULMONARY: Unlabored respirations. Good breath sounds bilaterally. No audible rales rhonchi or wheezing was noted. CARDIOVASCULAR: There is a regular rate and rhythm without any murmurs gallops or rubs. Here the click of the valves while listening to the heart. ABDOMEN: Soft and nontender with normal bowel sounds. No palpable organomegaly was noted. There is no palpable pulsatile mass. SKIN: Skin is clear with no lesions or rashes and otherwise unremarkable. NEUROLOGIC: Patient is alert and oriented x3. Cranial nerves II through XII are grossly intact. Motor and sensory are also intact. Normal speech, volume and content. Symmetrical smile. MUSCULOSKELETAL: Normal extremities with adequate strength and full range of motion. No lower extremity swelling or edema. No calf tenderness. LYMPHATICS: No significant lymphadenopathy is noted PSYCHIATRIC: Normal psychiatric evaluation. Limitations: no limitations Course Vital Signs 07/13/17 07/13/17 15:58 18:01 Temperature 98.2 F Pulse Rate 82 68 Respiratory 17 14 Rate Blood Pressure 135/60 144/64 O2 Sat by Pulse 98 96 Oximetry Medical Decision Making - Medical Decision Making Computed tomography scan shows a right sided subdural hematoma that appears to be acute. Patient's INR was elevated slightly gave her vitamin K and fresh frozen plasma. I spoke with [facility] and they accepted the patient we will be transferring the patient there. - Lab Data Result diagrams: 07/13/17 16:43 07/13/17 16:43 Lab Results 07/13/17 07/13/17 07/13/17 Range/Units 16:43 16:43 16:43 WBC 7.6 (3.8-10.6) k/uL RBC 4.10 (3.80-5.40) m/uL Hgb 12.8 (11.4-16.0) gm/dL Hct 37.7 (34.0-46.0) % MCV 92.0 (80.0-100.0) fL MCH 31.2 (25.0-35.0) pg MCHC 33.9 (31.0-37.0) g/dL RDW 13.0 (11.5-15.5) % Plt Count 152 (150-450) k/uL Neutrophils % 78 % Lymphocytes % 15 % Monocytes % 5 % Eosinophils % 1 % Basophils % 0 % Neutrophils # 5.9 (1.3-7.7) k/uL Lymphocytes # 1.1 (1.0-4.8) k/uL Monocytes # 0.4 (0-1.0) k/uL Eosinophils # 0.1 (0-0.7) k/uL Basophils # 0.0 (0-0.2) k/uL PT 59.9 H (9.0-12.0) sec INR 6.6 H* (<1.2) APTT 53.8 H (22.0-30.0) sec Sodium 138 (137-145) mmol/L Potassium 4.3 (3.5-5.1) mmol/L Chloride 104 (98-107) mmol/L Carbon Dioxide 26 (22-30) mmol/L Anion Gap 8 mmol/L BUN 15 (7-17) mg/dL Creatinine 0.60 (0.52-1.04) mg/dL Est GFR (MDRD) Af Amer >60 (>60 ml/min/1.73 sqM) Est GFR (MDRD) Non-Af >60 (>60 ml/min/1.73 sqM) Glucose 88 (74-99) mg/dL Calcium 9.4 (8.4-10.2) mg/dL Total Bilirubin 0.7 (0.2-1.3) mg/dL AST 27 (14-36) U/L ALT 19 (9-52) U/L Alkaline Phosphatase 68 (38-126) U/L Total Protein 6.7 (6.3-8.2) g/dL Albumin 3.9 (3.5-5.0) g/dL Blood Type Blood Type Recheck Antibody Screen Transfuse Plasma Spec Expiration Date 07/13/17 07/13/17 Range/Units 16:43 19:20 WBC (3.8-10.6) k/uL RBC (3.80-5.40) m/uL Hgb (11.4-16.0) gm/dL Hct (34.0-46.0) % MCV (80.0-100.0) fL MCH (25.0-35.0) pg MCHC (31.0-37.0) g/dL RDW (11.5-15.5) % Plt Count (150-450) k/uL Neutrophils % % Lymphocytes % % Monocytes % % Eosinophils % % Basophils % % Neutrophils # (1.3-7.7) k/uL Lymphocytes # (1.0-4.8) k/uL Monocytes # (0-1.0) k/uL Eosinophils # (0-0.7) k/uL Basophils # (0-0.2) k/uL PT (9.0-12.0) sec INR (<1.2) APTT (22.0-30.0) sec Sodium (137-145) mmol/L Potassium (3.5-5.1) mmol/L Chloride (98-107) mmol/L Carbon Dioxide (22-30) mmol/L Anion Gap mmol/L BUN (7-17) mg/dL Creatinine (0.52-1.04) mg/dL Est GFR (MDRD) Af Amer (>60 ml/min/1.73 sqM) Est GFR (MDRD) Non-Af (>60 ml/min/1.73 sqM) Glucose (74-99) mg/dL Calcium (8.4-10.2) mg/dL Total Bilirubin (0.2-1.3) mg/dL AST (14-36) U/L ALT (9-52) U/L Alkaline Phosphatase (38-126) U/L Total Protein (6.3-8.2) g/dL Albumin (3.5-5.0) g/dL Blood Type A Positive Blood Type Recheck A Pos Antibody Screen NEGATIVE Transfuse Plasma 07/15/2017 Spec Expiration Date 07/16/2017 - 2343 Disposition Clinical Impression: Coagulopathy, Subdural hematoma, acute Disposition: OTHER INSTITUTION NOT DEFINED Referrals: Boaz Chaudhary MD [Primary Care Provider] - 1-2 days Time of Disposition: 18:29 - Out of Hospital Transfer - Req. Specs Out of Hospital Transfer - Requested Specifics: Other Emergency Center ( [facility])
[2017-07-13 17:27] LABS: ALT 19 U/L (9-52); AST 27 U/L (14-36); Albumin 3.9 g/dL (3.5-5.0); Alkaline Phosphatase 68 U/L (38-126); Anion Gap 8 mmol/L; Blood Urea Nitrogen 15 mg/dL (7-17); Calcium 9.4 mg/dL (8.4-10.2); Carbon Dioxide 26 mmol/L (22-30); Chloride 104 mmol/L (98-107); Glucose 88 mg/dL (74-99); Potassium 4.3 mmol/L (3.5-5.1); Sodium 138 mmol/L (137-145); Total Bilirubin 0.7 mg/dL (0.2-1.3); Total Protein 6.7 g/dL (6.3-8.2)
--- NOTE | 2017-07-13 17:30 | CT ---
EXAMINATION TYPE: CT brain wo con DATE OF EXAM: 07/13/2017 COMPARISON: 09/18/2014 HISTORY: MUÑOZ and occasional dizziness x1 week. CT DLP: 976.5 mGycm Automated exposure control for dose reduction was used. FINDINGS: There is 5 cm area of cortical hypodensity in the right frontal lobe consistent with old infarct. The re is no mass effect nor midline shift. There is no sign of intracranial hemorrhage. The calvarium is intact. 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 NO ACUTE INTRACRANIAL ABNORMALITY. NO CHANGE.
[2017-07-13 17:35] LABS: Partial Thromboplastin Time 53.8 sec (22.0-30.0); Prothrombin Time 59.9 sec (9.0-12.0)
[2017-07-13 17:37] LABS: INR 6.6 (<1.2)
[2017-07-13 17:39] LABS: Basophils % (A) 0 %; Eosinophils # (A) 0.1 k/uL (0-0.7); Eosinophils % (A) 1 %; HCT 37.7 % (34.0-46.0); HGB 12.8 gm/dL (11.4-16.0); Lymphocytes # (A) 1.1 k/uL (1.0-4.8); Lymphocytes % (A) 15 %; MCH 31.2 pg (25.0-35.0); MCHC 33.9 g/dL (31.0-37.0); Mean Platelet Volume 7.8; Monocytes # (A) 0.4 k/uL (0-1.0); Monocytes % (A) 5 %; Neutrophils # (A) 5.9 k/uL (1.3-7.7); Neutrophils % (A) 78 %; Platelet Count 152 k/uL (150-450); WBC 7.6 k/uL (3.8-10.6)
[2017-07-13 18:03] VITALS: BP 144/64; PULSE 68; RESP 14
[2017-07-13] MEDS ORDERED: PHYTONADIONE 10 MG in SODIUM CHLORIDE 0.9% 50 ML IVPB STA (18:09)
[2017-07-13] MEDS ORDERED: LORazepam 2 MG/ML INJ IV STA (18:16)
== END 2017-07-13 19:08 | disposition short-term general hospital (02) ==
LOC: EC 15:50
DX: S06.5X9A Traumatic subdural hemorrhage with loss of consciousness of unspecified duration, initial encounter (principal); D68.9 Coagulation defect, unspecified; J45.909 Unspecified asthma, uncomplicated; F32.9 Major depressive disorder, single episode, unspecified; F41.9 Anxiety disorder, unspecified; Z79.01 Long term (current) use of anticoagulants; Z79.51 Long term (current) use of inhaled steroids; Z79.899 Other long term (current) drug therapy; W18.09XA Striking against other object with subsequent fall, initial encounter
CPT/HCPCS: 36415; 86900; 86901; 80053; 85025; 85610; 85730; 86850; 70450; 99285; 96365; 96375; J2060; J3430

== ENCOUNTER 2017-07-27 16:46 | Emergency (ER) | payer MEDICARE, BC ==
--- NOTE | 2017-07-27 17:50 | ED ---
Neuro HPI - General Chief Complaint: Neuro Symptoms/Deficit Stated Complaint: Numbness on left side Time Seen by Provider: 07/27/17 17:35 Source: patient, family, RN notes reviewed, old records reviewed Mode of arrival: wheelchair Limitations: no limitations - History of Present Illness Is the patient presenting with stroke symptoms?: No Initial Comments: This is a 77-year-old female with a history of 2 Heart valves was clinically for many years who was brought in by her after complaints of headache left finger numbness and later left hand numbness and also some left facial droop with some slurred speech.. She was just discharged from [facility] about 2 hours prior to my evaluation. She had been admitted there because of intercerebral bleeding. She had fairly 2 episodes 1 over this past week and one over the previous weekend. She states she does have a headache is moderate in severity. Her head no blurry vision currently has no facial droop no trouble with memory no focal weakness or upper or lower extremities no chest pain palpitations or other symptoms. She was not started on her Coumadin again after she was discharged today. Per the patient's and the episode was short lived before she became normalized. - Related Data Home Medications: Home Medications Medication Instructions Recorded Confirmed Albuterol Sulfate [Proair Hfa] 1 - 2 puff INHALATION RT-Q6H PRN 12/18/16 Citalopram Hydrobromide [CeleXA] 20 mg PO DAILY 12/18/16 07/27/17 Fluticasone/Salmeterol [Advair 1 puff INHALATION RT-BID 12/18/16 07/27/17 250-50 Diskus] LORazepam [Ativan] 1 mg PO TID PRN 12/18/16 07/27/17 Zolpidem Tartrate [Ambien] 10 mg PO HS 12/18/16 07/27/17 Calcium Carbonate [Calcium] 600 mg PO DAILY 06/17/17 07/27/17 Carboxymethylcellulose Sodium 1 - 2 drop BOTH EYES QID PRN 06/17/17 07/27/17 [Refresh Tears] Multivitamins, Thera [Multivitamin 1 tab PO DAILY 06/17/17 07/27/17 (formulary)] Allergies/Adverse Reactions: Allergies Allergy/AdvReac Type Severity Reaction Status Date / Time No Known Allergies Allergy Verified 07/27/17 18:04 Review of Systems ROS Statement: Those systems with pertinent positive or pertinent negative responses have been documented in the HPI. ROS Other: All systems not noted in ROS Statement are negative. General Exam - General Exam Comments Initial Comments: This is a well-developed well-nourished awake alert oriented 3 female Limitations: no limitations General appearance: alert, in no apparent distress Head exam: Present: atraumatic, normocephalic, normal inspection Eye exam: Present: normal appearance, PERRL, EOMI. Absent: scleral icterus, conjunctival injection, periorbital swelling ENT exam: Present: normal exam, mucous membranes moist Neck exam: Present: normal inspection. Absent: tenderness, meningismus, lymphadenopathy Respiratory exam: Present: normal lung sounds bilaterally. Absent: respiratory distress, wheezes, rales, rhonchi, stridor Cardiovascular Exam: Present: regular rate, normal rhythm, other (Heart valves are audible on auscultation.). Absent: systolic murmur, diastolic murmur, rubs , gallop, clicks GI/Abdominal exam: Present: soft, normal bowel sounds. Absent: distended, tenderness, guarding, rebound, rigid Extremities exam: Present: normal inspection, full ROM, normal capillary refill. Absent: tenderness, pedal edema, joint swelling, calf tenderness Back exam: Present: normal inspection Neurological exam: Present: alert, oriented X3, CN II-XII intact. Absent: motor sensory deficit Psychiatric exam: Present: normal affect, normal mood Skin exam: Present: warm, dry, intact, normal color. Absent: rash Stroke MDM - Lab Data Result diagrams: 07/27/17 17:50 07/27/17 17:50 Lab Results 07/27/17 07/27/17 07/27/17 Range/Units 17:50 17:50 17:50 WBC 6.9 (3.8-10.6) k/uL RBC 3.53 L (3.80-5.40) m/uL Hgb 10.8 L (11.4-16.0) gm/dL Hct 32.4 L (34.0-46.0) % MCV 91.7 (80.0-100.0) fL MCH 30.7 (25.0-35.0) pg MCHC 33.5 (31.0-37.0) g/dL RDW 13.4 (11.5-15.5) % Plt Count 185 (150-450) k/uL Neutrophils % 76 % Lymphocytes % 15 % Monocytes % 6 % Eosinophils % 2 % Basophils % 0 % Neutrophils # 5.3 (1.3-7.7) k/uL Lymphocytes # 1.1 (1.0-4.8) k/uL Monocytes # 0.4 (0-1.0) k/uL Eosinophils # 0.1 (0-0.7) k/uL Basophils # 0.0 (0-0.2) k/uL PT (9.0-12.0) sec INR (<1.2) APTT (22.0-30.0) sec Sodium 137 (137-145) mmol/L Potassium 4.5 (3.5-5.1) mmol/L Chloride 101 (98-107) mmol/L Carbon Dioxide 31 H (22-30) mmol/L Anion Gap 5 mmol/L BUN 14 (7-17) mg/dL Creatinine 0.66 (0.52-1.04) mg/dL Est GFR (CKD-EPI)AfAm >90 (>60 ml/min/1.73 sqM) Est GFR (CKD-EPI)NonAf 85 (>60 ml/min/1.73 sqM) Glucose 92 (74-99) mg/dL Calcium 9.0 (8.4-10.2) mg/dL Total Bilirubin 0.6 (0.2-1.3) mg/dL AST 17 (14-36) U/L ALT 19 (9-52) U/L Alkaline Phosphatase 63 (38-126) U/L Total Creatine Kinase 36 (30-135) U/L CK-MB (CK-2) 0.6 (0.0-2.4) ng/mL CK-MB (CK-2) Rel Index 1.7 Troponin I <0.012 (0.000-0.034) ng/mL Total Protein 6.6 (6.3-8.2) g/dL Albumin 3.6 (3.5-5.0) g/dL 07/27/17 Range/Units 17:50 WBC (3.8-10.6) k/uL RBC (3.80-5.40) m/uL Hgb (11.4-16.0) gm/dL Hct (34.0-46.0) % MCV (80.0-100.0) fL MCH (25.0-35.0) pg MCHC (31.0-37.0) g/dL RDW (11.5-15.5) % Plt Count (150-450) k/uL Neutrophils % % Lymphocytes % % Monocytes % % Eosinophils % % Basophils % % Neutrophils # (1.3-7.7) k/uL Lymphocytes # (1.0-4.8) k/uL Monocytes # (0-1.0) k/uL Eosinophils # (0-0.7) k/uL Basophils # (0-0.2) k/uL PT 10.8 (9.0-12.0) sec INR 1.1 (<1.2) APTT 25.8 (22.0-30.0) sec Sodium (137-145) mmol/L Potassium (3.5-5.1) mmol/L Chloride (98-107) mmol/L Carbon Dioxide (22-30) mmol/L Anion Gap mmol/L BUN (7-17) mg/dL Creatinine (0.52-1.04) mg/dL Est GFR (CKD-EPI)AfAm (>60 ml/min/1.73 sqM) Est GFR (CKD-EPI)NonAf (>60 ml/min/1.73 sqM) Glucose (74-99) mg/dL Calcium (8.4-10.2) mg/dL Total Bilirubin (0.2-1.3) mg/dL AST (14-36) U/L ALT (9-52) U/L Alkaline Phosphatase (38-126) U/L Total Creatine Kinase (30-135) U/L CK-MB (CK-2) (0.0-2.4) ng/mL CK-MB (CK-2) Rel Index Troponin I (0.000-0.034) ng/mL Total Protein (6.3-8.2) g/dL Albumin (3.5-5.0) g/dL - NIH Stroke Scale 1a. Level of Consciousness: (0) alert 1b. LOC Questions: (0) answers correctly 1c. LOC Commands: (0) performs tasks correctly 2. Best Gaze: (0) normal 3. Visual: (0) no visual loss 4. Facial Palsy: (0) normal symmetrical movement 5a. Motor Arm Left: (0) no drift 5b. Motor Arm Right: (0) no drift 6a. Motor Leg Left: (0) no drift 6b. Motor Leg Right: (0) no drift 7. Limb Ataxia: (0) absent 8. Sensory: (0) normal 9. Best Language: (0) no aphasia 10. Dysarthria: (0) normal 11. Extinction/Inattention: (0) no abnormality - Thrombolytic Inclusion/Exclusion Thrombolytic Contraindications: Rapidly Improving s/s, Hx of ICH/AVM/Aneurysms - Medical Decision Making I did reevaluate patient several occasions she had no recurrent symptoms. The presentation is consistent with a TIA presentation she does have evidence of intercerebral bleeding the CAT scan does show evidence of evidence of acute and chronic subdural hematoma involving the right cerebral hemisphere that is significantly increased compared to 08/10 of this year there is new hemorrhage involving the tentorium cerebelli the right occipital lobe right frontal lobe no mass effect I did discuss this with radiologist. X-ray was unremarkable I did discuss findings with the patient and her . Patient will be transferred to [facility] I did discuss the case with Dr. Banerjee who is agreed to accept the patient transfer she currently is awake alert oriented 3 with no deficits vital signs are adequate with BP 141/65 heart rate 70 saturation 96% room air temperature 98.5 Fahrenheit respiratory rate 16. - EKG Data -: EKG Interpreted by Me EKG shows normal: sinus rhythm (Normal sinus rhythm rate is 73. Interval 1:30 QRS duration 92 QT since QTC of 424/[address]-T wave changes.) Past Medical History Past Medical History: Asthma Additional Past Medical History / Comment(s): Bacterial endocarditis s/p tooth abscess, subdural hematoma History of Any Multi-Drug Resistant Organisms: None Reported Past Surgical History: Cardiac Valve Replacement Additional Past Surgical History / Comment(s): Mitral and aortic valve replacement - 1991. Bladder suspension Past Anesthesia/Blood Transfusion Reactions: No Reported Reaction Past Psychological History: Anxiety, Depression Smoking Status: Never smoker Past Alcohol Use History: None Reported Past Drug Use History: None Reported - Past Family History Father Additional Family Medical History / Comment(s): endocarditis, rheumatic fever at age 32 Mother Additional Family Medical History / Comment(s): "embolism at 90" Course Vital Signs 07/27/17 07/27/17 07/27/17 16:54 17:59 19:40 Temperature 97.5 F L 98.5 F Pulse Rate 75 70 70 Respiratory 18 16 16 Rate Blood Pressure 163/63 176/73 141/65 O2 Sat by Pulse 98 100 96 Oximetry Critical Care Time Critical Care Time: Yes Critical Care Time: 33 minutes of critical care time which includes initial presentation with history physical labs x-rays several reevaluation the patient. Review of old charting. Discussion with radiologist regarding the CT findings discussed with the patient family regarding findings discussion with the emergency physician is receiving facility documentation the above. Disposition Clinical Impression: Transient cerebral ischemia, Subdural hematoma, acute, Subdural hematoma, chronic Disposition: OTHER INSTITUTION NOT DEFINED Condition: Stable Referrals: Boaz Chaudhary MD [Primary Care Provider] - 1-2 days - Out of Hospital Transfer - Req. Specs Out of Hospital Transfer - Requested Specifics: Other Emergency Center
[2017-07-27] MEDS ORDERED: HYDROcodone/APAP 5-325MG 1 EACH TAB PO STA (17:56)
[2017-07-27 18:03] LABS: Basophils % (A) 0 %; Eosinophils # (A) 0.1 k/uL (0-0.7); Eosinophils % (A) 2 %; HCT 32.4 % (34.0-46.0); HGB 10.8 gm/dL (11.4-16.0); Lymphocytes # (A) 1.1 k/uL (1.0-4.8); Lymphocytes % (A) 15 %; MCH 30.7 pg (25.0-35.0); MCHC 33.5 g/dL (31.0-37.0); MCV 91.7 fL (80.0-100.0); Mean Platelet Volume 8.5; Monocytes # (A) 0.4 k/uL (0-1.0); Monocytes % (A) 6 %; Neutrophils # (A) 5.3 k/uL (1.3-7.7); Neutrophils % (A) 76 %; Platelet Count 185 k/uL (150-450); RBC 3.53 m/uL (3.80-5.40); RDW 13.4 % (11.5-15.5); WBC 6.9 k/uL (3.8-10.6)
[2017-07-27 18:13] LABS: ALT 19 U/L (9-52); AST 17 U/L (14-36); Albumin 3.6 g/dL (3.5-5.0); Alkaline Phosphatase 63 U/L (38-126); Anion Gap 5 mmol/L; Blood Urea Nitrogen 14 mg/dL (7-17); Carbon Dioxide 31 mmol/L (22-30); Chloride 101 mmol/L (98-107); Glucose 92 mg/dL (74-99); Potassium 4.5 mmol/L (3.5-5.1); Sodium 137 mmol/L (137-145); Total Bilirubin 0.6 mg/dL (0.2-1.3); Total Protein 6.6 g/dL (6.3-8.2)
[2017-07-27 18:16] LABS: Creatine Kinase 36 U/L (30-135)
[2017-07-27 18:28] LABS: INR 1.1 (<1.2); Partial Thromboplastin Time 25.8 sec (22.0-30.0); Prothrombin Time 10.8 sec (9.0-12.0)
[2017-07-27 18:29] LABS: Creatine Kinase MB 0.6 ng/mL (0.0-2.4); Troponin I <0.012 ng/mL (0.000-0.034)
--- NOTE | 2017-07-27 18:30 | CT ---
EXAMINATION TYPE: CT brain wo con DATE OF EXAM: 07/27/2017 COMPARISON: 07/15/2017 HISTORY: MUÑOZ with left arm numbness. CT DLP: 985.6 mGycm Automated exposure control for dose reduction was used. FINDINGS: There is high attenuation seen over the right frontal and right occipital lobe convexity that measure s up to 8 mm in thickness. There is mixed density over the right frontal lobe. There is also high att enuation in the region of the right tentorium cerebelli. There is high attenuation in the interhemisp heric fissure posteriorly. There is a 4 cm area of hypodensity related to old infarct in the right posterior frontal lobe. There is no midline shift. IMPRESSION: THERE IS EVIDENCE OF ACUTE AND CHRONIC SUBDURAL HEMATOMA INVOLVING THE RIGHT CEREBRAL HEMISPHERE THAT IS SIGNIFICANTLY INCREASED COMPARED TO 07/13/2017. THERE IS NEW HEMORRHAGE INVOLVING THE TENTORIUM CE REBELLI, RIGHT OCCIPITAL LOBE RIGHT FRONTAL LOBE. NO MASS EFFECT. OLD RIGHT FRONTAL LOBE CORTICAL INF ARCT. THIS EXAM WAS DISCUSSED WITH ER PHYSICIAN AT 6:30 PM.
[2017-07-27 18:51] VITALS: PULSE 70
[2017-07-27 19:40] VITALS: TEMP 98.5
--- NOTE | 2017-07-27 20:06 | XR ---
EXAMINATION TYPE: XR chest 2V DATE OF EXAM: 07/27/2017 COMPARISON: 06/17/2017 HISTORY: Pain. Slurred speech. TECHNIQUE: Frontal and lateral views of the chest are obtained. FINDINGS: There is no heart failure nor confluent pneumonic infiltrate. Thoracic aorta is atheromato us. There is pulmonary hyperinflation. There are sternal wires. There is a linear metallic density pr ojected over the heart on the lateral view the apparently is bowel surgery. IMPRESSION: COPD. No acute lung disease. No adverse change compared to old exam.
[2017-07-27 20:54] VITALS: BP 144/60; RESP 18
== END 2017-07-27 21:02 | disposition other institution (70) ==
LOC: EC 16:46
DX: G45.9 Transient cerebral ischemic attack, unspecified (principal); I62.01 Nontraumatic acute subdural hemorrhage; I62.03 Nontraumatic chronic subdural hemorrhage; J45.909 Unspecified asthma, uncomplicated; F32.9 Major depressive disorder, single episode, unspecified; Z79.51 Long term (current) use of inhaled steroids; Z79.899 Other long term (current) drug therapy
CPT/HCPCS: 36415; 70450; 71046; 80053; 82550; 82553; 84484; 85025; 85610; 85730; 93005; 99291

== ENCOUNTER → 2017-08-18 | Outpatient (CLI) | payer MEDICARE, BC ==
[2017-08-18 18:10] LABS: Anion Gap 13 mmol/L; Carbon Dioxide 27 mmol/L (22-30); Chloride 103 mmol/L (98-107); Potassium 4.4 mmol/L (3.5-5.1); Sodium 143 mmol/L (137-145)
[2017-08-18 22:46] LABS: Blood Urea Nitrogen 18 mg/dL (7-17)
--- NOTE | 2017-08-19 09:24 | CT ---
EXAMINATION TYPE: CT brain wo con DATE OF EXAM: 08/18/2017 COMPARISON: 07/27/2017 HISTORY: 77-year-old female subdural hematoma. Follow up study for brain. TECHNIQUE: Examination was done in axial plane without intravenous contrast. Coronal and sagittal r econstructions performed. CT DLP: 788.1 mGycm Automated exposure control for dose reduction was used. FINDINGS: Redemonstrated subdural hematoma along the right frontal convexity. Overall thickness of the chronic component has decreased in the interval now measuring 4.3 mm wide versus 8.5 mm, previously. More inferiorly along the right frontal convexity, there is some acute subdural blood measuring 3 mm thick. Minimal additional acute subdural blood is present along the anterior inferior frontal convexi ty measuring 3 mm thick. There is overall decrease in the superior extension of the subdural hematoma and interval resolution of the previous subdural hematoma along the right leaf of the tentorium cerebelli. Also, resolution o f the subdural hematoma along the right parietal and occipital convexities. Redemonstrated is encephalomalacia in the right frontal lobe relating to prior infarct. No mass effec t or midline shift. No hydrocephalus. Patchy white matter hypodensities in both cerebral hemispheres relating to changes of chronic small vessel ischemic disease. Paranasal sinuses and mastoid air cells well pneumatized. Orbits and globes are intact. IMPRESSION: 1. Decrease in thickness of the chronic right frontal subdural hematoma (now 4 mm versus 8 mm, previo usly). 2. Some acute subdural blood is noted measuring 3 mm thick along the inferior right frontal convexity as well as the inferior aspect of the anterior right frontal region. 3. Decrease in the superior extension of the subdural hematoma seen previously with interval resoluti on of the previous acute subdural hematoma along the right parietal/occipital convexity as well as al karli the right leaf of the tentorium. 4. No mass effect or midline shift. Attempt to contact the ordering clinician was unsuccessful. Arpin (Maty) at [facility] said that the patient has an appointment in the office at 9:30 AM. Unable to reach th e physician seeing the patient. parts identification technician number was taken for call back. Report being signed off at 9: 20 AM.
== END | disposition home or self-care (01) ==
LOC: RADCTMAIN 17:05
PROVIDERS: ATTEND Internal Medicine
DX: S06.5X9A Traumatic subdural hemorrhage with loss of consciousness of unspecified duration, initial encounter (principal); R79.1 Abnormal coagulation profile
CPT/HCPCS: 70450; 80051; 82565; 84520

== ENCOUNTER → 2017-09-25 | Outpatient (CLI) | payer MEDICARE, BC ==
--- NOTE | 2017-09-28 09:51 | MM ---
Reason for exam: screening (asymptomatic). Last mammogram was performed 7 months ago. History: Patient is postmenopausal and history of other cancer. Family history of breast cancer in sister at age 60, breast cancer in mother at age 79, breast cancer in paternal aunt at age 40, and breast cancer in maternal aunt. Benign left mammotome panel of the left breast, March 04, 2006. Benign excisional biopsy of the right breast, 1983. Took hormonal contraceptives for 2 years beginning at age 22. Took estrogen for 10 years beginning at age 49. Physical Findings: A clinical breast exam by your physician is recommended on an annual basis and results should be correlated with mammographic findings. MG 3D Screening Mammo W/Cad Bilateral CC and MLO view(s) were taken. Prior study comparison: March 09, 2017, right breast MG 3d diag mammo w/cad RT. September 05, 2016, bilateral MG 3d screening mammo w/cad. The breast tissue is heterogeneously dense. This may lower the sensitivity of mammography. No significant changes when compared with prior studies. ASSESSMENT: Benign, BI-RAD 2 RECOMMENDATION: Routine screening mammogram of both breasts in 1 year.
== END | disposition home or self-care (01) ==
LOC: RADMAMWWP 13:02
PROVIDERS: ATTEND Family Medicine
DX: Z12.31 Encounter for screening mammogram for malignant neoplasm of breast (principal)
CPT/HCPCS: 77063; 77067

== ENCOUNTER 2017-11-26 12:37 | Emergency (ER) | payer MEDICARE, BC ==
[2017-11-26 12:49] VITALS: RESP 18; TEMP 97.8
[2017-11-26] MEDS ORDERED: SODIUM CHLORIDE 0.9% 500 ML IV STA (13:34)
--- NOTE | 2017-11-26 13:37 | ED ---
General Adult HPI - General Chief complaint: Headache Stated complaint: POSS CVA, HEADACHE, HEMATURIA Time Seen by Provider: 11/26/17 13:24 Source: patient, RN notes reviewed Mode of arrival: wheelchair Limitations: no limitations - History of Present Illness Initial comments: Patient is a 77-year-old female presenting to the emergency room today with multiple complaints. Patient states that she has a history of a subdural hematoma back in June 2017. She states that she did notice a headache yesterday. She states today she had a repeat CT of the head that was scheduled. Patient states headache subsided when she went to bed last night. She states has minimal headache at this time is doing well. Patient states that she did notice some blood in her urine this morning. She states that she is able to check her INR at home as she is on Coumadin because a 2 valve replacements. Patient states her INR was 1.4 this concerned her and she came here to the emergency room. She does admit that she felt somewhat rundown yesterday. She denies any new cough congestion. She does admit to history of asthma. Denies any other pain. Denies any other dysuria. Denies any nausea or vomiting, or diarrhea. - Related Data Home Medications Medication Instructions Recorded Confirmed Albuterol Sulfate [Proair Hfa] 1 - 2 puff INHALATION RT-Q6H PRN 12/18/16 Citalopram Hydrobromide [CeleXA] 20 mg PO DAILY 12/18/16 11/26/17 Fluticasone/Salmeterol [Advair 1 puff INHALATION RT-BID 12/18/16 11/26/17 250-50 Diskus] LORazepam [Ativan] 1 mg PO HS PRN 12/18/16 11/26/17 Zolpidem Tartrate [Ambien] 10 mg PO HS 12/18/16 11/26/17 Calcium Carbonate [Calcium] 1,200 mg PO DAILY 06/17/17 11/26/17 Carboxymethylcellulose Sodium 1 - 2 drop BOTH EYES QID PRN 06/17/17 11/26/17 [Refresh Tears] Multivitamins, Thera [Multivitamin 1 tab PO DAILY 06/17/17 11/26/17 (formulary)] Warfarin [Coumadin] 2.5 mg PO MOTHSA 11/26/17 11/26/17 Warfarin [Coumadin] 5 mg PO SUTUWEFR 11/26/17 11/26/17 Previous Rx's Medication Instructions Recorded Nitrofurantoin Monohyd/M-Cryst 100 mg PO Q12HR #14 cap 11/26/17 [Macrobid] Allergies Allergy/AdvReac Type Severity Reaction Status Date / Time No Known Allergies Allergy Verified 11/26/17 13:09 Review of Systems ROS Statement: Those systems with pertinent positive or pertinent negative responses have been documented in the HPI. ROS Other: All systems not noted in ROS Statement are negative. Past Medical History Past Medical History: Asthma Additional Past Medical History / Comment(s): Bacterial endocarditis s/p tooth abscess, subdural hematoma History of Any Multi-Drug Resistant Organisms: None Reported Past Surgical History: Cardiac Valve Replacement Additional Past Surgical History / Comment(s): Mitral and aortic valve replacement -. Bladder suspension Past Anesthesia/Blood Transfusion Reactions: No Reported Reaction Past Psychological History: Anxiety, Depression Smoking Status: Never smoker Past Alcohol Use History: Daily Past Drug Use History: None Reported - Past Family History Father Additional Family Medical History / Comment(s): endocarditis, rheumatic fever at age 32 Mother Additional Family Medical History / Comment(s): "embolism at 90" General Exam - General Exam Comments Initial Comments: General: The patient is awake and alert, in no distress, and does not appear acutely ill. Eye: Pupils are equal, round and reactive to light, extra-ocular movements are intact. No nystagmus. There is normal conjunctiva bilaterally. No signs of icterus. Ears, nose, mouth and throat: There are moist mucous membranes and no oral lesions. Neck: The neck is supple, there is no tenderness or JVD. Cardiovascular: There is a regular rate and rhythm. No murmur, rub or gallop is appreciated. Respiratory: Lungs are clear to auscultation, respirations are non-labored, breath sounds are equal. No wheezes, stridor, rales, or rhonchi. Musculoskeletal: Normal ROM, no tenderness. Strength 5/5. Sensation intact. Pulses equal bilaterally 2+. Neurological: A&O x 3. CN II-XII intact, There are no obvious motor or sensory deficits. Coordination appears grossly intact. Speech is normal. Skin: Skin is warm and dry and no rashes or lesions are noted. Psychiatric: Cooperative, appropriate mood & affect, normal judgment. Limitations: no limitations Course Vital Signs 11/26/17 12:45 Temperature 97.8 F Pulse Rate 83 Respiratory 18 Rate Blood Pressure 135/64 O2 Sat by Pulse 94 L Oximetry Medical Decision Making - Medical Decision Making Patient's CT that was performed earlier today of the brain shows near resolution of previous supple dural hematoma. Patient denies headache at this time she states has resolved. Patient did have a headache last night but better today. Patient did see blood in her urine earlier today. Urinalysis does show urinary tract infection. Patient is symptomatically otherwise. Will be started on antibiotics. Patient's remaining labs are unremarkable. Chest x- ray was performed as she does admit she had some cough. No signs of any infiltrate or infection. Patient will be discharged home. She is advised to follow-up family doctor have repeat urinalysis. Advised return to emergency room if any symptoms increase or worsen or for any other concerns. - Lab Data Result diagrams: 11/26/17 13:51 11/26/17 13:51 Lab Results 11/26/17 11/26/17 11/26/17 Range/Units 13:51 13:51 13:51 WBC 5.0 (3.8-10.6) k/uL RBC 4.25 (3.80-5.40) m/uL Hgb 13.4 (11.4-16.0) gm/dL Hct 39.8 (34.0-46.0) % MCV 93.5 (80.0-100.0) fL MCH 31.5 (25.0-35.0) pg MCHC 33.6 (31.0-37.0) g/dL RDW 14.3 (11.5-15.5) % Plt Count 134 L (150-450) k/uL Neutrophils % 61 % Lymphocytes % 31 % Monocytes % 5 % Eosinophils % 2 % Basophils % 0 % Neutrophils # 3.0 (1.3-7.7) k/uL Lymphocytes # 1.6 (1.0-4.8) k/uL Monocytes # 0.2 (0-1.0) k/uL Eosinophils # 0.1 (0-0.7) k/uL Basophils # 0.0 (0-0.2) k/uL PT (9.0-12.0) sec INR (<1.2) APTT (22.0-30.0) sec Sodium 141 (137-145) mmol/L Potassium 4.0 (3.5-5.1) mmol/L Chloride 108 H (98-107) mmol/L Carbon Dioxide 24 (22-30) mmol/L Anion Gap 9 mmol/L BUN 18 H (7-17) mg/dL Creatinine 0.70 (0.52-1.04) mg/dL Est GFR (CKD-EPI)AfAm >90 (>60 ml/min/1.73 sqM) Est GFR (CKD-EPI)NonAf 83 (>60 ml/min/1.73 sqM) Glucose 127 H (74-99) mg/dL Calcium 9.4 (8.4-10.2) mg/dL Total Bilirubin 0.8 (0.2-1.3) mg/dL AST 24 (14-36) U/L ALT 25 (9-52) U/L Alkaline Phosphatase 52 (38-126) U/L Total Creatine Kinase 40 (30-135) U/L CK-MB (CK-2) 0.8 (0.0-2.4) ng/mL CK-MB (CK-2) Rel Index 2.0 Troponin I <0.012 (0.000-0.034) ng/mL Total Protein 6.6 (6.3-8.2) g/dL Albumin 4.0 (3.5-5.0) g/dL Urine Color Urine Appearance (Clear) Urine pH (5.0-8.0) Ur Specific [place] (1.001-1.035) Urine Protein (Negative) Urine Glucose (UA) (Negative) Urine Ketones (Negative) Urine Blood (Negative) Urine Nitrite (Negative) Urine Bilirubin (Negative) Urine Urobilinogen (<2.0) mg/dL Ur Leukocyte Esterase (Negative) Urine RBC (0-5) /hpf Urine WBC (0-5) /hpf 11/26/17 11/26/17 Range/Units 13:51 13:51 WBC (3.8-10.6) k/uL RBC (3.80-5.40) m/uL Hgb (11.4-16.0) gm/dL Hct (34.0-46.0) % MCV (80.0-100.0) fL MCH (25.0-35.0) pg MCHC (31.0-37.0) g/dL RDW (11.5-15.5) % Plt Count (150-450) k/uL Neutrophils % % Lymphocytes % % Monocytes % % Eosinophils % % Basophils % % Neutrophils # (1.3-7.7) k/uL Lymphocytes # (1.0-4.8) k/uL Monocytes # (0-1.0) k/uL Eosinophils # (0-0.7) k/uL Basophils # (0-0.2) k/uL PT 13.7 H (9.0-12.0) sec INR 1.5 H (<1.2) APTT 25.7 (22.0-30.0) sec Sodium (137-145) mmol/L Potassium (3.5-5.1) mmol/L Chloride (98-107) mmol/L Carbon Dioxide (22-30) mmol/L Anion Gap mmol/L BUN (7-17) mg/dL Creatinine (0.52-1.04) mg/dL Est GFR (CKD-EPI)AfAm (>60 ml/min/1.73 sqM) Est GFR (CKD-EPI)NonAf (>60 ml/min/1.73 sqM) Glucose (74-99) mg/dL Calcium (8.4-10.2) mg/dL Total Bilirubin (0.2-1.3) mg/dL AST (14-36) U/L ALT (9-52) U/L Alkaline Phosphatase (38-126) U/L Total Creatine Kinase (30-135) U/L CK-MB (CK-2) (0.0-2.4) ng/mL CK-MB (CK-2) Rel Index Troponin I (0.000-0.034) ng/mL Total Protein (6.3-8.2) g/dL Albumin (3.5-5.0) g/dL Urine Color Red Urine Appearance Cloudy H (Clear) Urine pH 5.5 (5.0-8.0) Ur Specific [place] 1.016 (1.001-1.035) Urine Protein 1+ H (Negative) Urine Glucose (UA) Negative (Negative) Urine Ketones Trace H (Negative) Urine Blood Large H (Negative) Urine Nitrite Negative (Negative) Urine Bilirubin Negative (Negative) Urine Urobilinogen <2.0 (<2.0) mg/dL Ur Leukocyte Esterase Moderate H (Negative) Urine RBC >182 H (0-5) /hpf Urine WBC >182 H (0-5) /hpf Disposition Clinical Impression: UTI (urinary tract infection) Disposition: HOME SELF-CARE Condition: Good Instructions: Urinary Tract Infection in Women (ED) Additional Instructions: Please follow family doctor over the next 2-5 days for repeat urinalysis. Please use antibiotic as prescribed. Blister to the emergency department for new concerns. Prescriptions: Nitrofurantoin Monohyd/M-Cryst [Macrobid] 100 mg PO Q12HR #14 cap Is patient prescribed a controlled substance at d/c from ED?: No Referrals: Boaz Chaudhary MD [Primary Care Provider] - 1-2 days Time of Disposition: 15:16
[2017-11-26 14:05] LABS: Basophils % (A) 0 %; Eosinophils # (A) 0.1 k/uL (0-0.7); Eosinophils % (A) 2 %; HCT 39.8 % (34.0-46.0); HGB 13.4 gm/dL (11.4-16.0); Lymphocytes # (A) 1.6 k/uL (1.0-4.8); Lymphocytes % (A) 31 %; MCH 31.5 pg (25.0-35.0); MCHC 33.6 g/dL (31.0-37.0); MCV 93.5 fL (80.0-100.0); Mean Platelet Volume 8.4; Monocytes # (A) 0.2 k/uL (0-1.0); Monocytes % (A) 5 %; Neutrophils % (A) 61 %; Platelet Count 134 k/uL (150-450); RBC 4.25 m/uL (3.80-5.40); RDW 14.3 % (11.5-15.5)
[2017-11-26 14:13] LABS: Appearance,Urine Cloudy (Clear); Bilirubin,Urine Negative (Negative); Blood,Urine Large (Negative); Color,Urine Red; Glucose,Urine (UA) Negative (Negative); Ketones,Urine Trace (Negative); Leukocyte Esterase,Urine Moderate (Negative); Nitrite,Urine Negative (Negative); PH, Urine 5.5 (5.0-8.0); Protein,Urine 1+ (Negative); RBC,Urine >182 /hpf (0-5); Specific Gravity,Urine 1.016 (1.001-1.035); Urobilinogen,Urine <2.0 mg/dL (<2.0); WBC,Urine >182 /hpf (0-5)
[2017-11-26 14:14] LABS: INR 1.5 (<1.2); Partial Thromboplastin Time 25.7 sec (22.0-30.0); Prothrombin Time 13.7 sec (9.0-12.0)
[2017-11-26 14:16] LABS: ALT 25 U/L (9-52); AST 24 U/L (14-36); Alkaline Phosphatase 52 U/L (38-126); Anion Gap 9 mmol/L; Blood Urea Nitrogen 18 mg/dL (7-17); Calcium 9.4 mg/dL (8.4-10.2); Carbon Dioxide 24 mmol/L (22-30); Chloride 108 mmol/L (98-107); Glucose 127 mg/dL (74-99); Sodium 141 mmol/L (137-145); Total Bilirubin 0.8 mg/dL (0.2-1.3); Total Protein 6.6 g/dL (6.3-8.2)
[2017-11-26 14:24] LABS: Creatine Kinase 40 U/L (30-135)
--- NOTE | 2017-11-26 14:27 | XR ---
EXAMINATION TYPE: XR chest 2V DATE OF EXAM: 11/26/2017 COMPARISON: Chest x-ray July 27, 2017 HISTORY: Cough per order. TECHNIQUE: Frontal and lateral views of the chest are obtained. FINDINGS: Overlying sternal wires are redemonstrated. Eventration of right hemidiaphragm is again se en. There is chronic parenchymal change without suspicious new focal air space opacity or pneumothora x seen. There are tiny bilateral pleural effusions or pleural thickening that remains present with b lunting of posterior costophrenic angles. The cardiac silhouette size is within normal limits with at herosclerotic change in aortic knob redemonstrated. The osseous structures are intact. IMPRESSION: Chronic changes without suspicious acute infiltrate. No significant change from prior.
[2017-11-26 14:38] LABS: Creatine Kinase MB 0.8 ng/mL (0.0-2.4); Troponin I <0.012 ng/mL (0.000-0.034)
[2017-11-26 15:38] VITALS: BP 130/59; PULSE 66
== END 2017-11-26 15:36 | disposition home or self-care (01) ==
LOC: EC 12:37
DX: N39.0 Urinary tract infection, site not specified (principal); R05 Cough; R51 Headache; J45.909 Unspecified asthma, uncomplicated; F32.9 Major depressive disorder, single episode, unspecified; F41.9 Anxiety disorder, unspecified; Z79.01 Long term (current) use of anticoagulants; Z79.51 Long term (current) use of inhaled steroids; Z79.899 Other long term (current) drug therapy; Z98.890 Other specified postprocedural states
CPT/HCPCS: 36415; 71046; 80053; 81001; 82550; 82553; 84484; 85025; 85610; 85730; 87086; 93005; 96360; 99284

== ENCOUNTER → 2017-11-26 | Outpatient (CLI) | payer MEDICARE, BC ==
--- NOTE | 2017-11-26 08:16 | CT ---
EXAMINATION TYPE: CT brain wo con DATE OF EXAM: 11/26/2017 COMPARISON: 07/13/2017, 07/27/2017, and 08/18/2017 HISTORY: Follow up on subdural hemorrhage CT DLP: 1017.9 mGycm Automated exposure control for dose reduction was used. 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 There is associated ex vacuo dilatation of the lateral horn of t he right ventricle from prior infarct. Punctate dystrophic calcifications are scattered throughout. W ith respect to the previously seen subdural this measured 4.3 cm on the prior exam of 08/18/2017 and 8. 5 mm prior to that. No new compartment of blood is identified. Prominent perivascular spaces are seen at the lateral inferior basal ganglia. Patchy areas of hypoatt enuation within the subcortical and periventricular white matter (most likely related to sequela of m icroangiopathy. Calvarium is intact. Although the mastoid air cells are well aerated there is partial visualization of a dystrophic calcific density within the inferior left maxillary sinus not imaged o n the prior within the [id number]. CT sinuses is recommended for further characterization. IMPRESSION: 1. NEAR COMPLETE RESOLUTION OF THE PREVIOUSLY SEEN RIGHT SUBDURAL HEMATOMA WITH NO NEW MIDLINE SHIFT OR ACUTE HEMORRHAGE. 2. PARTIAL VISUALIZATION OF A CALCIFIED LEFT MAXILLARY SINUS LESION FOR WHICH CT SINUSES IS RECOMMEND ED FOR FURTHER CHARACTERIZATION.
== END | disposition home or self-care (01) ==
LOC: RADCTMAIN 07:08
PROVIDERS: ATTEND Neurological Surgery
DX: I62.00 Nontraumatic subdural hemorrhage, unspecified (principal)
CPT/HCPCS: 70450

== ENCOUNTER → 2017-12-16 | Outpatient (CLI) | payer MEDICARE, BC ==
--- NOTE | 2017-12-17 07:48 | US ---
EXAMINATION TYPE: US kidneys/renal and bladder DATE OF EXAM: 12/16/2017 COMPARISON: US 2012 CLINICAL HISTORY: R31.9 HEMATURIA; patient stated had hematuria with UTI approximately 3 weeks ago EXAM MEASUREMENTS: Right Kidney: 10.0 x 5.0 x 3.8 cm Left Kidney: 9.9 x 3.9 x 3.7 cm Post Void Residual Volume: 6.2 mL Right Kidney: No hydronephrosis or masses seen Left Kidney: No hydronephrosis or masses seen Bladder: wnl Bilateral Jets seen: yes Normal Post Void Residual: yes IMPRESSION: 1. Normal retroperitoneal ultrasound.
== END | disposition home or self-care (01) ==
LOC: RADUSWWP 16:13
PROVIDERS: ATTEND Family Medicine
DX: R31.9 Hematuria, unspecified (principal)
CPT/HCPCS: 76770

== ENCOUNTER → 2018-02-15 | Outpatient (CLI) | payer MEDICARE, BC ==
[2018-02-15 13:30] LABS: Basophils % (A) 0 %; Eosinophils # (A) 0.1 k/uL (0-0.7); Eosinophils % (A) 2 %; HCT 43.5 % (34.0-46.0); Lymphocytes # (A) 0.8 k/uL (1.0-4.8); Lymphocytes % (A) 20 %; MCH 30.9 pg (25.0-35.0); MCHC 32.2 g/dL (31.0-37.0); MCV 96.1 fL (80.0-100.0); Mean Platelet Volume 8.2; Monocytes # (A) 0.2 k/uL (0-1.0); Monocytes % (A) 6 %; Neutrophils # (A) 2.9 k/uL (1.3-7.7); Neutrophils % (A) 71 %; Platelet Count 127 k/uL (150-450); RBC 4.53 m/uL (3.80-5.40); RDW 13.5 % (11.5-15.5); WBC 4.1 k/uL (3.8-10.6)
[2018-02-15 13:31] LABS: INR 1.5 (<1.2); Prothrombin Time 13.5 sec (9.0-12.0)
[2018-02-15 13:36] LABS: Albumin 4.2 g/dL (3.5-5.0); Calcium 9.8 mg/dL (8.4-10.2); Potassium 4.5 mmol/L (3.5-5.1); Total Bilirubin 1.1 mg/dL (0.2-1.3); Total Protein 7.4 g/dL (6.3-8.2)
--- NOTE | 2018-02-15 13:38 | CT ---
EXAMINATION TYPE: CT brain wo con DATE OF EXAM: 02/15/2018 COMPARISON: CT brain 11/26/2017 HISTORY: MUÑOZ, fatigue, history of bleed CT DLP: 1064.3 mGycm Automated exposure control for dose reduction was used. Helical imaging through the brain. FINDINGS: Large area of encephalomalacia right frontal location is again noted, no acute hemorrhage or hydrocep halus. Periventricular white matter shows patchy low attenuation as on prior exam. Cerebral vascular calcifications are present. Calvarium is intact. Paranasal sinuses and mastoid air cells as visualize d are unremarkable, post procedural change suspected in the left maxillary sinus. IMPRESSION: STABLE EXAM, NO ACUTE ABNORMALITY.
--- NOTE | 2018-02-15 13:47 | CT ---
EXAMINATION TYPE: CT soft tissue neck wo con DATE OF EXAM: 02/15/2018 HISTORY: fatigue and disease of circulatory system, headache, cerebrovascular disease COMPARISON: None CT DLP: 277 mGycm. Automated Exposure Control for Dose Reduction was Utilized. TECHNIQUE: CT scan of the neck is performed without contrast FINDINGS: Lack of contrast could compromise sensitivity. Airway: No gross abnormality seen. Apical emphysematous changes are present within the lungs. Parotid/submandibular glands: No gross abnormality seen. Patient is post median sternotomy. Dense vascular calcifications are present within the aorta and sup er aortic branch vessels, internal carotid arteries at the level of the siphon, carotid bulbs. Osseous Structures: There is multilevel spondylosis. Loss of the normal cervical lordosis could be du e to muscle spasm. Loss of disc height is greatest at C4-5, C5-6 and C6-7, there is multilevel forami nal encroachment. Skull base is normal. Dental amalgam causes streak artifact over portions of the ex am. Other: Thyroid shows an unremarkable appearance. IMPRESSION: Degenerative disc disease as described. Noncontrast exam. Cerebral vascular disease. Emph ysema, postop changes.
[2018-02-15 13:53] LABS: T4, Free (Free Thyroxine) 1.01 ng/dL (0.78-2.19)
== END ==
LOC: RADCTMAIN 12:26
PROVIDERS: ATTEND Family Medicine
DX: I67.89 Other cerebrovascular disease (principal); M50.321 Other cervical disc degeneration at C4-C5 level; J43.9 Emphysema, unspecified; J44.9 Chronic obstructive pulmonary disease, unspecified; G47.09 Other insomnia; R53.83 Other fatigue; Z86.79 Personal history of other diseases of the circulatory system; Z98.890 Other specified postprocedural states
CPT/HCPCS: 36415; 70450; 70490; 80053; 84439; 84443; 85025; 85610

== ENCOUNTER 2018-04-03 14:19 | Emergency (ER) | payer MEDICARE, BC ==
[2018-04-03] MEDS ORDERED: SODIUM CHLORIDE 0.9% 500 ML 500 ML IV STA (14:39)
[2018-04-03] MEDS ORDERED: SODIUM CHLORIDE 0.9% 1,000 ML IV STA (14:39)
--- NOTE | 2018-04-03 14:47 | ED ---
General Adult HPI - General Chief complaint: Weakness Stated complaint: Weakness Time Seen by Provider: 04/03/18 14:33 Source: patient, family, RN notes reviewed Mode of arrival: wheelchair Limitations: no limitations - History of Present Illness Initial comments: Patient is a pleasant 77-year-old female presenting to the emergency department with complaints of fatigue and general weakness. Symptoms have been present for the past day or 2. Patient has had urinary frequency and hematuria and dysuria for over a week. Patient did go to urgent care 2 days ago and was started on Cipro. Symptoms have worsened. Patient does have some low back discomfort. - Related Data Home Medications Medication Instructions Recorded Confirmed Citalopram Hydrobromide [CeleXA] 20 mg PO DAILY 12/18/16 04/03/18 Fluticasone/Salmeterol [Advair 1 puff INHALATION RT-BID 12/18/16 04/03/18 250-50 Diskus] LORazepam [Ativan] 1 mg PO TID 12/18/16 04/03/18 Zolpidem Tartrate [Ambien] 10 mg PO HS 12/18/16 04/03/18 Warfarin [Coumadin] 2.5 mg PO MOTH 11/26/17 04/03/18 Warfarin [Coumadin] 5 mg PO SA 11/26/17 04/03/18 Ciprofloxacin HCl [Cipro] 250 mg PO BID 04/03/18 04/03/18 Cyclobenzaprine [Flexeril] 5 mg PO TID PRN 04/03/18 04/03/18 Montelukast [Singulair] 10 mg PO HS 04/03/18 04/03/18 rOPINIRole HCL [Requip] 0.5 mg PO HS 04/03/18 04/03/18 Allergies Allergy/AdvReac Type Severity Reaction Status Date / Time No Known Allergies Allergy Verified 04/03/18 14:29 Review of Systems ROS Statement: Those systems with pertinent positive or pertinent negative responses have been documented in the HPI. ROS Other: All systems not noted in ROS Statement are negative. Constitutional: Denies: fever, chills Eyes: Denies: eye pain ENT: Denies: ear pain Respiratory: Denies: cough Cardiovascular: Denies: chest pain Endocrine: Reports: fatigue Gastrointestinal: Reports: nausea. Denies: abdominal pain, vomiting Genitourinary: Reports: urgency, dysuria, frequency, hematuria Musculoskeletal: Reports: back pain (Lower back) Skin: Denies: rash Neurological: Reports: headache. Denies: confusion Past Medical History Past Medical History: Asthma Additional Past Medical History / Comment(s): Bacterial endocarditis s/p tooth abscess, subdural hematoma, UTI History of Any Multi-Drug Resistant Organisms: None Reported Past Surgical History: Cardiac Valve Replacement Additional Past Surgical History / Comment(s): Mitral and aortic valve replacement -. Bladder suspension Past Anesthesia/Blood Transfusion Reactions: No Reported Reaction Past Psychological History: Anxiety, Depression Smoking Status: Never smoker Past Alcohol Use History: Daily Past Drug Use History: None Reported - Past Family History Father Additional Family Medical History / Comment(s): endocarditis, rheumatic fever at age 32 Mother Additional Family Medical History / Comment(s): "embolism at 90" General Exam Limitations: no limitations General appearance: alert, in no apparent distress Head exam: Present: atraumatic Eye exam: Present: normal appearance, PERRL ENT exam: Present: normal oropharynx Neck exam: Present: normal inspection Respiratory exam: Present: normal lung sounds bilaterally Cardiovascular Exam: Present: regular rate, normal rhythm GI/Abdominal exam: Present: soft. Absent: tenderness Extremities exam: Present: normal inspection Back exam: Present: normal inspection. Absent: tenderness, CVA tenderness (R), CVA tenderness (L) Neurological exam: Present: alert. Absent: motor sensory deficit Expanded Motor strength exam: RUE: 5, LUE: 5, RLE: 5, LLE: 5 Psychiatric exam: Present: normal affect, normal mood Skin exam: Present: normal color Course Vital Signs 04/03/18 04/03/18 14:26 16:07 Temperature 97.9 F 97.8 F Pulse Rate 65 63 Respiratory 18 16 Rate Blood Pressure 177/84 157/51 O2 Sat by Pulse 97 96 Oximetry EKG Findings - EKG Comments: EKG Findings:: No sinus rhythm 64. WI 128. QRS 92. QT 474. QTC 489. Normal axis. Normal QRS. No acute ST change. Medical Decision Making - Medical Decision Making Patient reevaluated and resting comfortably in bed. Patient states she does feel better and is comfortable with discharge home. Patient and family are updated on results and need for close follow-up. - Lab Data Result diagrams: 04/03/18 15:10 04/03/18 15:10 Lab Results 04/03/18 04/03/18 04/03/18 Range/Units 15:10 15:10 15:10 WBC 4.0 (3.8-10.6) k/uL RBC 4.31 (3.80-5.40) m/uL Hgb 13.5 (11.4-16.0) gm/dL Hct 40.9 (34.0-46.0) % MCV 95.0 (80.0-100.0) fL MCH 31.2 (25.0-35.0) pg MCHC 32.9 (31.0-37.0) g/dL RDW 13.7 (11.5-15.5) % Plt Count 125 L (150-450) k/uL Neutrophils % 63 % Lymphocytes % 28 % Monocytes % 5 % Eosinophils % 2 % Basophils % 1 % Neutrophils # 2.5 (1.3-7.7) k/uL Lymphocytes # 1.1 (1.0-4.8) k/uL Monocytes # 0.2 (0-1.0) k/uL Eosinophils # 0.1 (0-0.7) k/uL Basophils # 0.0 (0-0.2) k/uL PT (9.0-12.0) sec INR (<1.2) APTT (22.0-30.0) sec Sodium 141 (137-145) mmol/L Potassium 4.0 (3.5-5.1) mmol/L Chloride 108 H (98-107) mmol/L Carbon Dioxide 26 (22-30) mmol/L Anion Gap 7 mmol/L BUN 18 H (7-17) mg/dL Creatinine 0.77 (0.52-1.04) mg/dL Est GFR (CKD-EPI)AfAm 86 (>60 ml/min/1.73 sqM) Est GFR (CKD-EPI)NonAf 74 (>60 ml/min/1.73 sqM) Glucose 96 (74-99) mg/dL Plasma Lactic Acid Joni (0.7-2.0) mmol/L Calcium 9.6 (8.4-10.2) mg/dL Magnesium 2.0 (1.6-2.3) mg/dL Total Bilirubin 0.8 (0.2-1.3) mg/dL AST 22 (14-36) U/L ALT 23 (9-52) U/L Alkaline Phosphatase 60 (38-126) U/L Total Creatine Kinase 48 (30-135) U/L CK-MB (CK-2) 1.1 (0.0-2.4) ng/mL CK-MB (CK-2) Rel Index 2.3 Troponin I 0.014 (0.000-0.034) ng/mL NT-Pro-B Natriuret Pep pg/mL Total Protein 7.1 (6.3-8.2) g/dL Albumin 4.1 (3.5-5.0) g/dL TSH 1.260 (0.465-4.680) mIU/L Urine Color Urine Appearance (Clear) Urine pH (5.0-8.0) Ur Specific [place] (1.001-1.035) Urine Protein (Negative) Urine Glucose (UA) (Negative) Urine Ketones (Negative) Urine Blood (Negative) Urine Nitrite (Negative) Urine Bilirubin (Negative) Urine Urobilinogen (<2.0) mg/dL Ur Leukocyte Esterase (Negative) 04/03/18 04/03/18 04/03/18 Range/Units 15:10 15:10 15:10 WBC (3.8-10.6) k/uL RBC (3.80-5.40) m/uL Hgb (11.4-16.0) gm/dL Hct (34.0-46.0) % MCV (80.0-100.0) fL MCH (25.0-35.0) pg MCHC (31.0-37.0) g/dL RDW (11.5-15.5) % Plt Count (150-450) k/uL Neutrophils % % Lymphocytes % % Monocytes % % Eosinophils % % Basophils % % Neutrophils # (1.3-7.7) k/uL Lymphocytes # (1.0-4.8) k/uL Monocytes # (0-1.0) k/uL Eosinophils # (0-0.7) k/uL Basophils # (0-0.2) k/uL PT 24.2 H (9.0-12.0) sec INR 2.7 H (<1.2) APTT 32.7 H (22.0-30.0) sec Sodium (137-145) mmol/L Potassium (3.5-5.1) mmol/L Chloride (98-107) mmol/L Carbon Dioxide (22-30) mmol/L Anion Gap mmol/L BUN (7-17) mg/dL Creatinine (0.52-1.04) mg/dL Est GFR (CKD-EPI)AfAm (>60 ml/min/1.73 sqM) Est GFR (CKD-EPI)NonAf (>60 ml/min/1.73 sqM) Glucose (74-99) mg/dL Plasma Lactic Acid Joni 0.9 (0.7-2.0) mmol/L Calcium (8.4-10.2) mg/dL Magnesium (1.6-2.3) mg/dL Total Bilirubin (0.2-1.3) mg/dL AST (14-36) U/L ALT (9-52) U/L Alkaline Phosphatase (38-126) U/L Total Creatine Kinase (30-135) U/L CK-MB (CK-2) (0.0-2.4) ng/mL CK-MB (CK-2) Rel Index Troponin I (0.000-0.034) ng/mL NT-Pro-B Natriuret Pep 800 pg/mL Total Protein (6.3-8.2) g/dL Albumin (3.5-5.0) g/dL TSH (0.465-4.680) mIU/L Urine Color Urine Appearance (Clear) Urine pH (5.0-8.0) Ur Specific [place] (1.001-1.035) Urine Protein (Negative) Urine Glucose (UA) (Negative) Urine Ketones (Negative) Urine Blood (Negative) Urine Nitrite (Negative) Urine Bilirubin (Negative) Urine Urobilinogen (<2.0) mg/dL Ur Leukocyte Esterase (Negative) 04/03/18 Range/Units 15:49 WBC (3.8-10.6) k/uL RBC (3.80-5.40) m/uL Hgb (11.4-16.0) gm/dL Hct (34.0-46.0) % MCV (80.0-100.0) fL MCH (25.0-35.0) pg MCHC (31.0-37.0) g/dL RDW (11.5-15.5) % Plt Count (150-450) k/uL Neutrophils % % Lymphocytes % % Monocytes % % Eosinophils % % Basophils % % Neutrophils # (1.3-7.7) k/uL Lymphocytes # (1.0-4.8) k/uL Monocytes # (0-1.0) k/uL Eosinophils # (0-0.7) k/uL Basophils # (0-0.2) k/uL PT (9.0-12.0) sec INR (<1.2) APTT (22.0-30.0) sec Sodium (137-145) mmol/L Potassium (3.5-5.1) mmol/L Chloride (98-107) mmol/L Carbon Dioxide (22-30) mmol/L Anion Gap mmol/L BUN (7-17) mg/dL Creatinine (0.52-1.04) mg/dL Est GFR (CKD-EPI)AfAm (>60 ml/min/1.73 sqM) Est GFR (CKD-EPI)NonAf (>60 ml/min/1.73 sqM) Glucose (74-99) mg/dL Plasma Lactic Acid Joni (0.7-2.0) mmol/L Calcium (8.4-10.2) mg/dL Magnesium (1.6-2.3) mg/dL Total Bilirubin (0.2-1.3) mg/dL AST (14-36) U/L ALT (9-52) U/L Alkaline Phosphatase (38-126) U/L Total Creatine Kinase (30-135) U/L CK-MB (CK-2) (0.0-2.4) ng/mL CK-MB (CK-2) Rel Index Troponin I (0.000-0.034) ng/mL NT-Pro-B Natriuret Pep pg/mL Total Protein (6.3-8.2) g/dL Albumin (3.5-5.0) g/dL TSH (0.465-4.680) mIU/L Urine Color Light Yellow Urine Appearance Clear (Clear) Urine pH 7.0 (5.0-8.0) Ur Specific [place] 1.007 (1.001-1.035) Urine Protein Negative (Negative) Urine Glucose (UA) Negative (Negative) Urine Ketones Negative (Negative) Urine Blood Negative (Negative) Urine Nitrite Negative (Negative) Urine Bilirubin Negative (Negative) Urine Urobilinogen <2.0 (<2.0) mg/dL Ur Leukocyte Esterase Negative (Negative) - Radiology Data Radiology results: report reviewed (Computed tomography scan of the brain shows chronic changes without acute abnormality.), image reviewed (Chest x-ray shows mild vascular congestion and cardiomegaly) Disposition Clinical Impression: Fatigue Disposition: HOME SELF-CARE Condition: Stable Instructions: Fatigue (ED) Additional Instructions: Please follow-up with your primary care physician on Thursday. Return for fevers , increased pain, weakness, unable to take care of yourself or walk around like normal, worsening symptoms or other concerns. Is patient prescribed a controlled substance at d/c from ED?: No Referrals: Boaz Chaudhary MD [Primary Care Provider] - 1-2 days Time of Disposition: 18:24
--- NOTE | 2018-04-03 15:15 | XR ---
EXAMINATION TYPE: XR chest 2V DATE OF EXAM: 04/03/2018 COMPARISON: 11/26/2017 HISTORY: Weakness TECHNIQUE: Frontal and lateral views of the chest are obtained. FINDINGS: There is no focal air space opacity, pleural effusion, or pneumothorax seen. Chronic pare nchymal changes are similar to the prior however there is new cephalization is mild. The cardiac silh ouette size is mildly enlarged. Right hemidiaphragm eventration is unchanged. The osseous structures are intact. Postsurgical changes from prior cardiac valvular replacement are noted. Pulmonary hyperi nflation relates underlying COPD as there is flattening of the diaphragms on the lateral view IMPRESSION: Mild pulmonary vascular congestion that in combination with cardiomegaly may relate to congestive hea rt failure.
[2018-04-03 15:45] LABS: Basophils % (A) 1 %; Eosinophils # (A) 0.1 k/uL (0-0.7); Eosinophils % (A) 2 %; HCT 40.9 % (34.0-46.0); HGB 13.5 gm/dL (11.4-16.0); Lymphocytes # (A) 1.1 k/uL (1.0-4.8); Lymphocytes % (A) 28 %; MCH 31.2 pg (25.0-35.0); MCHC 32.9 g/dL (31.0-37.0); Mean Platelet Volume 7.9; Monocytes # (A) 0.2 k/uL (0-1.0); Monocytes % (A) 5 %; Neutrophils # (A) 2.5 k/uL (1.3-7.7); Neutrophils % (A) 63 %; Platelet Count 125 k/uL (150-450); RBC 4.31 m/uL (3.80-5.40); RDW 13.7 % (11.5-15.5)
[2018-04-03 15:47] LABS: Albumin 4.1 g/dL (3.5-5.0); Calcium 9.6 mg/dL (8.4-10.2); Total Bilirubin 0.8 mg/dL (0.2-1.3); Total Protein 7.1 g/dL (6.3-8.2)
[2018-04-03 15:52] LABS: INR 2.7 (<1.2); Partial Thromboplastin Time 32.7 sec (22.0-30.0); Prothrombin Time 24.2 sec (9.0-12.0)
[2018-04-03 16:08] VITALS: RESP 16
[2018-04-03 16:14] LABS: Appearance,Urine Clear (Clear); Bilirubin,Urine Negative (Negative); Blood,Urine Negative (Negative); Color,Urine Light Yellow; Glucose,Urine (UA) Negative (Negative); Ketones,Urine Negative (Negative); Leukocyte Esterase,Urine Negative (Negative); Nitrite,Urine Negative (Negative); Protein,Urine Negative (Negative); Specific Gravity,Urine 1.007 (1.001-1.035); Urobilinogen,Urine <2.0 mg/dL (<2.0)
[2018-04-03 16:14] LABS: Creatine Kinase MB 1.1 ng/mL (0.0-2.4); Troponin I 0.014 ng/mL (0.000-0.034)
--- NOTE | 2018-04-03 17:32 | CT ---
EXAMINATION TYPE: CT brain wo con DATE OF EXAM: 04/03/2018 COMPARISON: 02/15/2018 HISTORY: Weakness, dizziness and possible UTI. CT DLP: 1470.4 mGycm Automated exposure control for dose reduction was used. FINDINGS: There is redemonstration of a large area of encephalomalacia within the right frontal lobe as seen on the prior of 02/15/2018. Punctate calcifications bilaterally within the subarachnoid space are redemo nstrated and may relate to prior intrathecal contrast injection. No new focal areas of hypoattenuatio n are seen. Redemonstration of confluent periventricular and a few scattered subcortical areas of hyp oattenuation. There are old lacunar injuries of the right external capsule and left lentiform nucleus . Symmetric prominence of the peripheral sulci and the ventricular system other ex vacuo dilatation of the anterior horn of the right lateral ventricle are seen compatible with age-related volume loss. Ca lvarium is intact. Mild mucosal thickening in the ethmoid sinuses are seen. Scant mucosal thickening within the left maxillary sinus is present. Remaining paranasal sinuses and mastoid air cells are wel l aerated. IMPRESSION: NO ACUTE INTRACRANIAL PROCESS. 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 SIMILAR CEREBRAL VOLUME LO SS IN COMPARISON TO THE PRIOR EXAM.
[2018-04-03 18:46] VITALS: BP 158/68; PULSE 67; TEMP 98.1
== END 2018-04-03 18:50 | disposition home or self-care (01) ==
LOC: EC 14:19
DX: R53.83 Other fatigue (principal); I51.7 Cardiomegaly; I99.8 Other disorder of circulatory system; R35.0 Frequency of micturition; R53.1 Weakness; R31.9 Hematuria, unspecified; R30.0 Dysuria; J45.909 Unspecified asthma, uncomplicated; F32.9 Major depressive disorder, single episode, unspecified; F41.9 Anxiety disorder, unspecified; Z79.01 Long term (current) use of anticoagulants; Z79.51 Long term (current) use of inhaled steroids; Z79.899 Other long term (current) drug therapy; Z95.2 Presence of prosthetic heart valve; Z98.890 Other specified postprocedural states; Z82.49 Family history of ischemic heart disease and other diseases of the circulatory system
CPT/HCPCS: 36415; 70450; 71046; 80053; 81003; 82550; 82553; 83605; 83735; 83880; 84443; 84484; 85025; 85610; 85730; 87040; 87086; 93005; 96360; 96361; 99285

== ENCOUNTER → 2018-12-03 | Outpatient (CLI) | payer MEDICARE, OTHER ==
--- NOTE | 2018-12-06 11:34 | MM ---
Reason for exam: screening (asymptomatic). Last mammogram was performed 1 year and 2 months ago. History: Patient is postmenopausal and has history of other cancer at age 58. Family history of breast cancer in sister at age 60, breast cancer in mother at age 79, breast cancer in paternal aunt at age 40, and breast cancer in maternal aunt. Benign left mammotome panel of the left breast, March 04, 2006. Benign excisional biopsy of the right breast, 1983. Took hormonal contraceptives for 2 years beginning at age 22. Took estrogen for 10 years beginning at age 49. Physical Findings: A clinical breast exam by your physician is recommended on an annual basis and results should be correlated with mammographic findings. MG 3D Screening Mammo W/Cad Bilateral CC and MLO view(s) were taken. Prior study comparison: September 25, 2017, bilateral MG 3d screening mammo w/cad. March 09, 2017, right breast MG 3d diag mammo w/cad RT. The breast tissue is heterogeneously dense. This may lower the sensitivity of mammography. Previous mammotome biopsy in the left breast. No significant changes when compared with prior studies. ASSESSMENT: Negative, BI-RAD 1 RECOMMENDATION: Routine screening mammogram of both breasts in 1 year.
== END | disposition home or self-care (01) ==
LOC: RADMAMWWP 15:23
PROVIDERS: ATTEND Family Medicine
DX: Z12.31 Encounter for screening mammogram for malignant neoplasm of breast (principal)
CPT/HCPCS: 77063; 77067

== ENCOUNTER 2019-01-30 09:49 | Emergency (ER) | payer MEDICARE, OTHER ==
[2019-01-30 09:54] VITALS: BP 166/63; PULSE 69; RESP 18; TEMP 97.7
--- NOTE | 2019-01-30 10:12 | ED ---
Female Urogenital HPI <Thomas Bettencourt - Last Filed: 01/30/19 10:48> - General Source: patient Mode of arrival: ambulatory Limitations: no limitations <Maddy Engle - Last Filed: 01/30/19 10:54> - General Chief complaint: Urogenital Stated complaint: UTI - History of Present Illness Initial comments: 78-year-old female presenting today for chief complaint of "I have a UTI". Patient states that she suffers with frequent urinary tract infections. She states the last being 6 weeks ago. Patient states that yesterday she felt sort of "off". She states that today she woke up with dysuria or urgency frequency. Patient denies any hematuria or flank pain. Patient states she does have lower midline pelvic pressure. Patient denies any severe abdominal pain. Patient denies any fever or flulike symptoms. Remaining review of system negative. Upon arrival patient appears well no signs of acute distress. No antibiotic use within the last month. Denies any antibiotic ALLERGIES. (Maddy Engle) - Related Data Home Medications Medication Instructions Recorded Confirmed Citalopram Hydrobromide [CeleXA] 20 mg PO DAILY 12/18/16 01/30/19 Fluticasone/Salmeterol [Advair 1 puff INHALATION RT-BID 12/18/16 01/30/19 250-50 Diskus] LORazepam [Ativan] 1 mg PO TID 12/18/16 01/30/19 Warfarin [Coumadin] 2.5 mg PO SUTUWETHSA 11/26/17 01/30/19 Montelukast [Singulair] 10 mg PO HS 04/03/18 01/30/19 rOPINIRole HCL [Requip] 0.5 mg PO HS 04/03/18 01/30/19 Albuterol Inhaler [Ventolin Hfa 1 - 2 puff INHALATION RT-Q6H PRN 01/30/19 01/30/19 Inhaler] Loratadine [Claritin] 10 mg PO DAILY 01/30/19 01/30/19 Warfarin [Coumadin] 3.75 mg PO MOFR 01/30/19 01/30/19 Previous Rx's Medication Instructions Recorded Cephalexin [Keflex] 500 mg PO Q6HR 7 Days #28 cap 01/30/19 Allergies Allergy/AdvReac Type Severity Reaction Status Date / Time No Known Allergies Allergy Verified 01/30/19 10:18 Review of Systems ROS Other: All systems not noted in ROS Statement are negative. <Thomas Bettencourt - Last Filed: 01/30/19 10:48> ROS Other: All systems not noted in ROS Statement are negative. <Maddy Engle - Last Filed: 01/30/19 10:54> ROS Statement: Those systems with pertinent positive or pertinent negative responses have been documented in the HPI. Past Medical History Past Medical History: Asthma Additional Past Medical History / Comment(s): Bacterial endocarditis s/p tooth abscess, subdural hematoma, UTI History of Any Multi-Drug Resistant Organisms: None Reported Past Surgical History: Cardiac Valve Replacement Additional Past Surgical History / Comment(s): Mitral and aortic valve replacement -. Bladder suspension Past Anesthesia/Blood Transfusion Reactions: No Reported Reaction Past Psychological History: Anxiety, Depression Smoking Status: Never smoker Past Alcohol Use History: Daily Past Drug Use History: None Reported - Past Family History Father Additional Family Medical History / Comment(s): endocarditis, rheumatic fever at age 32 Mother Additional Family Medical History / Comment(s): "embolism at 90" <Maddy Engle - Last Filed: 01/30/19 10:54> General Exam Limitations: no limitations <Maddy Engle - Last Filed: 01/30/19 10:54> - General Exam Comments Initial Comments: General: The patient is awake and alert, in no distress, and does not appear acutely ill. Eye: +3 mm pupils are equal, round and reactive to light, extra-ocular movements are intact. No nystagmus. There is normal conjunctiva bilaterally. No signs of icterus. Ears, nose, mouth and throat: There are moist mucous membranes and no oral lesions. Cardiovascular: There is a regular rate and rhythm. Click appreciated. Subtle murmur. No rub or gallop is appreciated. Respiratory: Lungs are clear to auscultation, respirations are non-labored, breath sounds are equal. No wheezes, stridor, rales, or rhonchi. Gastrointestinal: Soft, non-distended, mild pressure when midline lower pelvic region deeply palpated otherwise abdomen is non-tender abdomen without masses or organomegaly noted. There is no rebound or guarding present. Musculoskeletal: Normal ROM, no tenderness. Strength 5/5. Sensation intact grossly. Radial pulses equal bilaterally 2+. Neurological: A&O x 3. CN II-XII intact grossly, There are no obvious motor or sensory deficits. Coordination appears grossly intact. Speech is normal. Skin: Skin is warm and dry and no rashes or lesions are noted. Psychiatric: Cooperative, appropriate mood & affect, normal judgment. (Maddy Engle) Course <Thomas Bettencourt - Last Filed: 01/30/19 10:48> Vital Signs 01/30/19 09:50 Temperature 97.7 F Pulse Rate 69 Respiratory 18 Rate Blood Pressure 166/63 O2 Sat by Pulse 95 Oximetry - Reevaluation(s) Reevaluation #1: 01/30/19 10:48 PA supervision: I proceeded [id number] evaluation the patient did discuss [employer] her I do agree with the assessment and plan. Patient will follow-up with her doctor and return if any problems. (Thomas Bettencourt) Medical Decision Making <Maddy Engle - Last Filed: 01/30/19 10:54> - Medical Decision Making Well-appearing 78-year-old female presenting for dysuria urgency frequency. Patient states she has had UTIs in the past and this feels identical. Patient has benign abdominal exam slight pressure over the bladder midline. Patient urinalysis concerning for acute infection. As patient has advanced age we will treat with Keflex 500 mg 4 times a day for 7 days, for what is considered a complicated UTI. Otherwise, patient does appear well, nontoxic, and there are no clinical findings consistent with pyelonephritis or systemic spread of infection. Patient has no history of kidney stones. Patient was evaluated and person by my attending provider Dr. Bettencourt prior to discharge she is agreeable care plan at this time. Patient was discharged appearing well.The return parameters were discussed at length with patient who verbalized understanding. (Maddy Engle) - Lab Data Lab Results 01/30/19 Range/Units 10:00 Urine Color Yellow Urine Appearance Turbid H (Clear) Urine pH 5.5 (5.0-8.0) Ur Specific [place] 1.017 (1.001-1.035) Urine Protein Trace H (Negative) Urine Glucose (UA) Negative (Negative) Urine Ketones Negative (Negative) Urine Blood Moderate H (Negative) Urine Nitrite Negative (Negative) Urine Bilirubin Negative (Negative) Urine Urobilinogen <2.0 (<2.0) mg/dL Ur Leukocyte Esterase Large H (Negative) Urine RBC 47 H (0-5) /hpf Urine WBC >182 H (0-5) /hpf Urine WBC Clumps Many H (None) /hpf Ur Squamous Epith Cells 2 (0-4) /hpf Disposition <Thomas Bettencourt - Last Filed: 01/30/19 10:48> Is patient prescribed a controlled substance at d/c from ED?: No Time of Disposition: 10:12 <Maddy Engle - Last Filed: 01/30/19 10:54> Clinical Impression: Urinary tract infection Disposition: HOME SELF-CARE Condition: Good Instructions (If sedation given, give patient instructions): Urinary Tract Infection in Women (ED) Additional Instructions: Please use medication as discussed. Please follow-up with family doctor in the next 2 days of symptoms have not improved. Please return to emergency room if the symptoms increase or worsen or for any other concerns. Prescriptions: Cephalexin [Keflex] 500 mg PO Q6HR 7 Days #28 cap Referrals: Job Cheung III, MD [Primary Care Provider] - 1-2 days
[2019-01-30 10:39] LABS: Appearance,Urine Turbid (Clear); Bilirubin,Urine Negative (Negative); Blood,Urine Moderate (Negative); Color,Urine Yellow; Glucose,Urine (UA) Negative (Negative); Ketones,Urine Negative (Negative); Leukocyte Esterase,Urine Large (Negative); Nitrite,Urine Negative (Negative); PH, Urine 5.5 (5.0-8.0); Protein,Urine Trace (Negative); RBC,Urine 47 /hpf (0-5); Specific Gravity,Urine 1.017 (1.001-1.035); Squamous Epithelial Cell,Urine 2 /hpf (0-4); Urobilinogen,Urine <2.0 mg/dL (<2.0)
== END 2019-01-30 10:47 | disposition home or self-care (01) ==
LOC: EC 09:49
DX: N39.0 Urinary tract infection, site not specified (principal); J45.909 Unspecified asthma, uncomplicated; F32.9 Major depressive disorder, single episode, unspecified; F41.9 Anxiety disorder, unspecified; Z79.01 Long term (current) use of anticoagulants; Z79.51 Long term (current) use of inhaled steroids; Z79.899 Other long term (current) drug therapy; Z95.2 Presence of prosthetic heart valve
CPT/HCPCS: 81001; 87077; 87086; 87186; 99283

== ENCOUNTER 2019-03-10 03:44 | Emergency (ER) | payer MEDICARE, OTHER ==
[2019-03-10 03:53] VITALS: BP 149/67; PULSE 74; RESP 20; TEMP 97.8
[2019-03-10] MEDS ORDERED: PHENAZOPYRIDINE 200 MG TAB PO STA (04:00)
--- NOTE | 2019-03-10 04:05 | ED ---
Female Urogenital HPI - General Chief complaint: Urogenital Stated complaint: UTI Time Seen by Provider: 03/10/19 04:00 Source: patient Mode of arrival: ambulatory Limitations: no limitations - History of Present Illness Initial comments: Kristin is a pleasant 78-year-old female with a history of recurrent urinary tract infections who presents to the emergency department today for evaluation of urinary tract infection. Patient reports that she woke this morning with dysuria, urinary frequency consistent with previous urinary tract infections. She denies any fevers chills nausea vomiting or change in bowel habits. She denies any flank pain. - Related Data Home Medications Medication Instructions Recorded Confirmed Citalopram Hydrobromide [CeleXA] 20 mg PO DAILY 12/18/16 03/10/19 Fluticasone/Salmeterol [Advair 1 puff INHALATION RT-BID 12/18/16 03/10/19 250-50 Diskus] LORazepam [Ativan] 1 mg PO TID 12/18/16 03/10/19 Warfarin [Coumadin] 2.5 mg PO SUTUWETHSA 11/26/17 03/10/19 Montelukast [Singulair] 10 mg PO HS 04/03/18 03/10/19 rOPINIRole HCL [Requip] 0.5 mg PO HS 04/03/18 03/10/19 Albuterol Inhaler [Ventolin Hfa 1 - 2 puff INHALATION RT-Q6H PRN 01/30/19 03/10/19 Inhaler] Loratadine [Claritin] 10 mg PO DAILY 01/30/19 03/10/19 Warfarin [Coumadin] 3.75 mg PO MOFR 01/30/19 03/10/19 Previous Rx's Medication Instructions Recorded Cephalexin [Keflex] 500 mg PO Q6HR 7 Days #28 cap 01/30/19 Nitrofurantoin Monohyd/M-Cryst 100 mg PO Q12HR #14 cap 03/10/19 [Macrobid] Phenazopyridine [Pyridium] 100 mg PO TID #9 tablet 03/10/19 Allergies Allergy/AdvReac Type Severity Reaction Status Date / Time No Known Allergies Allergy Verified 01/30/19 10:18 Review of Systems ROS Statement: Those systems with pertinent positive or pertinent negative responses have been documented in the HPI. ROS Other: All systems not noted in ROS Statement are negative. Past Medical History Past Medical History: Asthma Additional Past Medical History / Comment(s): Bacterial endocarditis s/p tooth abscess, subdural hematoma, UTI History of Any Multi-Drug Resistant Organisms: None Reported Past Surgical History: Cardiac Valve Replacement Additional Past Surgical History / Comment(s): Mitral and aortic valve repla cement -. Bladder suspension Past Anesthesia/Blood Transfusion Reactions: No Reported Reaction Past Psychological History: Anxiety, Depression Smoking Status: Never smoker Past Alcohol Use History: Daily Past Drug Use History: None Reported - Past Family History Father Additional Family Medical History / Comment(s): endocarditis, rheumatic fever at age 32 Mother Additional Family Medical History / Comment(s): "embolism at 90" General Exam - General Exam Comments Initial Comments: Physical Exam GENERAL: Patient is well-developed and well-nourished. Patient is nontoxic and well-hydrated and is in no distress. HENT: Normocephalic, Atraumatic. EYES: PERRL, EOMI PULMONARY: Unlabored respirations. CARDIOVASCULAR: RRR Warm and well perfused extremities ABDOMEN: Non-distended SKIN: No rashes or bruising : Deferred NEUROLOGIC: Alert and oriented Normal speech Normal gait MUSCULOSKELETAL: Moving all extremities with no apparent injury PSYCHIATRIC: No SI/HI Limitations: no limitations Course Vital Signs 03/10/19 03:48 Temperature 97.8 F Pulse Rate 74 Respiratory 20 Rate Blood Pressure 149/67 O2 Sat by Pulse 95 Oximetry Medical Decision Making - Medical Decision Making Patient was seen and evaluated history was obtained from the patient urinalysis was consistent with urinary tract infection. . Venous urinary cultures were reviewed, patient had Klebsiella pneumonia which was blanco susceptible. Patient previously treated with Keflex. Patient was treated with Pyridium and a first dose of Macrobid. Patient scheduled follow-up with urology on March 16. All questions pertaining care were answered return parameters discussed patient discharged home in stable condition. - Lab Data Lab Results 03/10/19 Range/Units 03:55 Urine Color Yellow Urine Appearance Cloudy H (Clear) Urine pH 6.0 (5.0-8.0) Ur Specific [place] 1.015 (1.001-1.035) Urine Protein Trace H (Negative) Urine Glucose (UA) Negative (Negative) Urine Ketones Negative (Negative) Urine Blood Trace H (Negative) Urine Nitrite Negative (Negative) Urine Bilirubin Negative (Negative) Urine Urobilinogen <2.0 (<2.0) mg/dL Ur Leukocyte Esterase Large H (Negative) Urine RBC 11 H (0-5) /hpf Urine WBC >182 H (0-5) /hpf Ur Squamous Epith Cells 1 (0-4) /hpf Urine Bacteria Rare H (None) /hpf Urine Mucus Rare H (None) /hpf Urine Yeast (Budding) Few H (None) /hpf Disposition Clinical Impression: Urinary tract infection Disposition: HOME SELF-CARE Condition: Stable Instructions (If sedation given, give patient instructions): Urinary Tract Infection in Women (ED) Prescriptions: Nitrofurantoin Monohyd/M-Cryst [Macrobid] 100 mg PO Q12HR #14 cap Phenazopyridine [Pyridium] 100 mg PO TID #9 tablet Is patient prescribed a controlled substance at d/c from ED?: No Referrals: Jyoti Sharma MD [Primary Care Provider] - 1-2 days
[2019-03-10 04:21] LABS: Appearance,Urine Cloudy (Clear); Bacteria,Urine Rare /hpf; Bilirubin,Urine Negative (Negative); Blood,Urine Trace (Negative); Budding Yeast,Urine Few /hpf; Color,Urine Yellow; Glucose,Urine (UA) Negative (Negative); Ketones,Urine Negative (Negative); Leukocyte Esterase,Urine Large (Negative); Mucus,Urine Rare /hpf; Nitrite,Urine Negative (Negative); Protein,Urine Trace (Negative); RBC,Urine 11 /hpf (0-5); Specific Gravity,Urine 1.015 (1.001-1.035); Squamous Epithelial Cell,Urine 1 /hpf (0-4); Urobilinogen,Urine <2.0 mg/dL (<2.0)
[2019-03-10] MEDS ORDERED: NITROFURANTOIN MONOHYD/M-CRYST 100 MG CAP PO STA (04:35)
== END 2019-03-10 04:50 | disposition home or self-care (01) ==
LOC: EC 03:44
DX: N39.0 Urinary tract infection, site not specified (principal); J45.909 Unspecified asthma, uncomplicated; F41.9 Anxiety disorder, unspecified; F32.9 Major depressive disorder, single episode, unspecified; Z79.01 Long term (current) use of anticoagulants; Z79.51 Long term (current) use of inhaled steroids; Z79.899 Other long term (current) drug therapy; Z98.890 Other specified postprocedural states; Z86.19 Personal history of other infectious and parasitic diseases; Z95.2 Presence of prosthetic heart valve
CPT/HCPCS: 81001; 87077; 87086; 87186; 99283

== ENCOUNTER → 2019-03-31 | Outpatient (CLI) | payer MEDICARE, OTHER ==
--- NOTE | 2019-04-01 08:03 | CT ---
EXAMINATION TYPE: CT urogram wo/w con DATE OF EXAM: 03/31/2019 COMPARISON: None HISTORY: Hematuria and frequent urination. CT DLP: 1913 mGycm CONTRAST: Performed and without and with IV Contrast, patient injected with 100ml mL of Isovue 300. CT Urography was performed with unenhanced followed by enhanced images of the kidneys, ureters and ur inary bladder. Delayed images were obtained. 3d reconstruction was perfromed at a separate work sta tion. FINDINGS: KIDNEYS/BLADDER: No hydronephrosis. No nephrolithiasis. No distinct renal mass. Partially duplicat ed right ureter. Mild urinary bladder wall thickening identified may reflect cystitis. Correlate clin ically. LUNG BASES-: No visible nodule. No infiltrate. LIVER/GB: No calcified gallstones. No space occupying hepatic lesion. Biliary tree is of normal ca liber. PANCREAS: No inflammation. No distinct mass. SPLEEN: No splenic enlargement. No lesion seen. ADRENALS: No nodule. No thickening. BOWEL: Normal appendix. Normal bowel caliber. No inflammation. GENITAL ORGANS: No gross abnormality. LYMPH NODES: No greater than 1cm abdominal or pelvic lymph nodes are appreciated. AORTA: Atheromatous change abdominal aorta without aneurysm. OSSEOUS STRUCTURES: No significant abnormality is seen. OTHER: No significant additional abnormality is seen. IMPRESSION: 1. Mild urinary bladder wall thickening identified may reflect cystitis. Correlate clinically.
== END | disposition home or self-care (01) ==
LOC: RADCTMAIN 16:33
PROVIDERS: ATTEND Urology
DX: N32.89 Other specified disorders of bladder (principal)
CPT/HCPCS: 82565; 84520; 74178; 36415; 74400; Q9967

== ENCOUNTER → 2019-05-03 | Outpatient (CLI) | payer MEDICARE, OTHER ==
[2019-05-03 13:20] LABS: Basophils # (A) 0.1 k/uL (0-0.2); Basophils % (A) 1 %; Eosinophils % (A) 1 %; HCT 42.2 % (34.0-46.0); HGB 14.3 gm/dL (11.4-16.0); Lymphocytes # (A) 1.5 k/uL (1.0-4.8); Lymphocytes % (A) 17 %; MCH 32.5 pg (25.0-35.0); MCHC 33.9 g/dL (31.0-37.0); MCV 95.8 fL (80.0-100.0); Mean Platelet Volume 8.7; Monocytes # (A) 0.3 k/uL (0-1.0); Monocytes % (A) 4 %; Neutrophils # (A) 6.9 k/uL (1.3-7.7); Neutrophils % (A) 77 %; Platelet Count 186 k/uL (150-450); RDW 13.5 % (11.5-15.5)
[2019-05-03 13:21] LABS: Appearance,Urine Clear (Clear); Bilirubin,Urine Negative (Negative); Blood,Urine Trace (Negative); Color,Urine Yellow; Glucose,Urine (UA) Negative (Negative); Ketones,Urine Negative (Negative); Leukocyte Esterase,Urine Large (Negative); Mucus,Urine Rare /hpf; Nitrite,Urine Negative (Negative); Protein,Urine Negative (Negative); RBC,Urine 6 /hpf (0-5); Specific Gravity,Urine 1.018 (1.001-1.035); Squamous Epithelial Cell,Urine 1 /hpf (0-4); WBC,Urine 7 /hpf (0-5)
== END | disposition home or self-care (01) ==
LOC: LABPAT 11:57
PROVIDERS: ATTEND Urology
DX: Z01.812 Encounter for preprocedural laboratory examination (principal); C67.9 Malignant neoplasm of bladder, unspecified
CPT/HCPCS: 36415; 81001; 85025

== ENCOUNTER 2019-05-10 06:32 | Day surgery (SDC) | payer MEDICARE, OTHER ==
--- NOTE | 2019-05-05 15:53 | P.HPIHPCON ---
History of Present Illness H&P Date: 05/10/19 Chief Complaint: bladder tumor Ms Maria is an 79 yo female with hx of hematuria. She underwent a cystoscopy which showed a bladder tumor. Given the finding of bladder tumor on cystoscopy decision was made to proceed to the OR for TURBT. I discussed with him the risk of procedure including bleeding, infection, bladder perforation. I discussed risk from anesthesia including heart attack, stroke, and even . Of note she is on coumadin for mechanical heart valve, and discussed she will need to be off coumadin for surgery. I discussed she is at increased risk of blood clots and bleeding. she understood all risks and agreed to proceed with TURBT Consent for Procedure: I have explained the operation/procedure to the patient, including the risks, benefits, side effects, alternative therapies (including not receiving the proposed treatment or service), the likelihood of the patient achieving his/her goals, and potential recuperation problems for the procedure/sedation/analgesia, as well as any blood products, if indicated. I also explained to the patient the risks, benefits and side effects of the alternatives, as well as the risks related to not receiving the proposed procedure, care, treatment, or services. - Constitutional Constitutional: Denies chills, Denies fever - Cardiovascular Cardiovascular: Denies chest pain, Denies dyspnea on exertion - Gastrointestinal Gastrointestinal: Denies abdominal pain, Denies nausea, Denies vomiting - Genitourinary (Male) Genitourinary: Reports hematuria Past Medical History Past Medical History: Asthma Additional Past Medical History / Comment(s): Bacterial endocarditis s/p tooth abscess, subdural hematoma, UTI History of Any Multi-Drug Resistant Organisms: None Reported Past Surgical History: Cardiac Valve Replacement Additional Past Surgical History / Comment(s): Mitral and aortic valve replacement -. Bladder suspension Past Anesthesia/Blood Transfusion Reactions: No Reported Reaction Past Psychological History: Anxiety, Depression Smoking Status: Never smoker Past Alcohol Use History: Daily Past Drug Use History: None Reported - Past Family History Father Additional Family Medical History / Comment(s): endocarditis, rheumatic fever at age 32 Mother Additional Family Medical History / Comment(s): "embolism at 90" Medications and Allergies Home Medications Medication Instructions Recorded Confirmed Type Citalopram Hydrobromide [CeleXA] 20 mg PO DAILY 12/18/16 03/10/19 History Fluticasone/Salmeterol [Advair 1 puff INHALATION RT-BID 12/18/16 03/10/19 History 250-50 Diskus] LORazepam [Ativan] 1 mg PO TID 12/18/16 03/10/19 History Warfarin [Coumadin] 2.5 mg PO SUTUWETHSA 11/26/17 03/10/19 History Montelukast [Singulair] 10 mg PO HS 04/03/18 03/10/19 History rOPINIRole HCL [Requip] 0.5 mg PO HS 04/03/18 03/10/19 History Albuterol Inhaler [Ventolin Hfa 1 - 2 puff INHALATION RT-Q6H PRN 01/30/19 03/10/19 History Inhaler] Cephalexin [Keflex] 500 mg PO Q6HR 7 Days #28 cap 01/30/19 03/10/19 Rx Loratadine [Claritin] 10 mg PO DAILY 01/30/19 03/10/19 History Warfarin [Coumadin] 3.75 mg PO MOFR 01/30/19 03/10/19 History Nitrofurantoin Monohyd/M-Cryst 100 mg PO Q12HR #14 cap 03/10/19 Rx [Macrobid] Phenazopyridine [Pyridium] 100 mg PO TID #9 tablet 03/10/19 Rx Allergies Allergy/AdvReac Type Severity Reaction Status Date / Time No Known Allergies Allergy Verified 01/30/19 10:18 Surgical - Exam - General well developed, well nourished, no distress, no pain - Respiratory normal expansion, normal respiratory effort - Abdomen Abdomen: soft, non tender - Psychiatric oriented to time, oriented to person, oriented to place Assessment and Plan Assessment: 79 yo female with hx of bladder tumor -OR for TURBT
[2019-05-06 08:53] VITALS: BMI 25.1
[~2019-05-10 06:32] MED LIST: AMPICILLIN 2,000 MG in SODIUM CHLORIDE 0.9% 100 ML IVPB ONE; DEXAMETHASONE SOD PHOSPHATE 10 MG/ML 1 ML VIAL IV ONE; GENTAMICIN 90 MG in SODIUM CHLORIDE 0.9% 100 ML IVPB ONE; HYDROmorphone 0.5 MG/0.5 ML SYRINGE IVP PRN; LIDOCAINE 1% 20 ML VIAL (10MG/ML) FOR IV START INTRADERMA PRN; ONDANSETRON 4 MG/2 ML VIAL IVP ONE
[2019-05-10] MEDS: LACTATED RINGERS 1,000 ML IV SCH ×2 (06:54→08:24)
[2019-05-10 06:55] LABS: Glucose,Whole Blood 98 mg/dL (75-99)
[2019-05-10] MEDS ORDERED: HYDROCORTISONE SUCCINATE 100 MG/2 ML VIAL IVP ONE (07:03)
[2019-05-10 07:15] LABS: Prothrombin Time 10.6 sec (9.0-12.0)
[2019-05-10] MEDS ORDERED: ROCURONIUM BROMIDE 10 MG/ML 10 ML VIAL IV ONE (07:30)
[2019-05-10] MEDS ORDERED: LABETALOL 5 MG/ML VIAL MDV ONE (07:30)
[2019-05-10] MEDS ORDERED: HYDROCORTISONE SUCCINATE 100 MG/2 ML VIAL ONE (07:30)
[2019-05-10] MEDS ORDERED: SUCCINYLCHOLINE CHLORIDE 100 MG/5 ML SYR IV ONE (07:30)
[2019-05-10] MEDS ORDERED: fentaNYL (PF) 50 MCG/ML 2 ML AMP ONE (07:30)
[2019-05-10] MEDS ORDERED: PROPOFOL 10 MG/ML 20 ML VIAL IV ONE (07:30)
[2019-05-10] MEDS ORDERED: GLYCOPYRROLATE 0.2 MG/ML 2 ML VIAL ONE (07:30)
[2019-05-10] MEDS ORDERED: LIDOCAINE 1% INJ 10MG/ML (20 ML MDV) ONE (07:30)
[2019-05-10] MEDS ORDERED: NEOSTIGMINE 1 MG/ML 10 ML VIAL ONE (07:30)
[2019-05-10] MEDS ORDERED: MIDAZOLAM 2 MG/2 ML VIAL ONE (07:30)
[2019-05-10] MEDS ORDERED: AMPICILLIN 500 MG VIAL IVPB ONE (07:35)
[2019-05-10] MEDS ORDERED: GENTAMICIN 40 MG/ML 2 ML VIAL IVPB ONE (07:51)
--- NOTE | 2019-05-10 08:56 | P.OP ---
Date of Procedure: 05/10/19 Preoperative Diagnosis: bladder tumor Postoperative Diagnosis: same Procedure(s) Performed: cystoscopy, TURBT Implants: none Anesthesia: SOPHIA Surgeon: Ketan Richards Estimated Blood Loss (ml): 5 Pathology: other (bladder tumor) Condition: stable Disposition: floor Indications for Procedure: Ms Maria is an 79 yo female with hx of hematuria. She underwent a cystoscopy which showed a bladder tumor. Given the finding of bladder tumor on cystoscopy decision was made to proceed to the OR for TURBT. I discussed with him the risk of procedure including bleeding, infection, bladder perforation. I discussed risk from anesthesia including heart attack, stroke, and even . Of note she is on coumadin for mechanical heart valve, and discussed she will need to be off coumadin for surgery. I discussed she is at increased risk of blood clots and bleeding. 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 She was prepped and draped in sterile fashion placed in a dorsal lithotomy posi tion. Resectoscope fitted with a 24 sheath was inserted per urethra cystoscopy was performed which showed a 1.5 cm tumor along the right lateral bladder wall, of note she did have duplicated system on the right. The visualized tumor was resected using the resectoscope, the area of resection was thoroughly fulgurated, and the resection bed edges was also thoroughly fulgurated. Repeat cystoscopy showed no additional tumors, and the bilateral ureteral orifices were not involved. The bladder tumor specimen was removed and sent to pathology. A 16-Uzbek Chi was placed with return of clear urine. The patient tolerated the procedure well and was taken to PACU in stable condition
[2019-05-10 08:57] VITALS: TEMP 96.8
[2019-05-10 09:30] VITALS: RESP 16
[2019-05-10 10:50] VITALS: BP 125/54; PULSE 67
== END 2019-05-10 11:26 | disposition home or self-care (01) ==
LOC: OR 06:32
PROVIDERS: ATTEND Urology
DX: D49.4 Neoplasm of unspecified behavior of bladder (principal); F32.9 Major depressive disorder, single episode, unspecified; F41.9 Anxiety disorder, unspecified; J45.909 Unspecified asthma, uncomplicated; Z79.01 Long term (current) use of anticoagulants; Z87.440 Personal history of urinary (tract) infections; Z95.2 Presence of prosthetic heart valve; Z79.899 Other long term (current) drug therapy; Z79.51 Long term (current) use of inhaled steroids
CPT/HCPCS: 52234; 85610; J2250; J1580; J1100; J2710; J1720; J2405; J2001; J0290; J3010; J0330; J2704

== ENCOUNTER 2019-05-17 13:04 | Emergency (ER) | payer MEDICARE, OTHER ==
[2019-05-17 13:13] VITALS: TEMP 97.5
[2019-05-17] MEDS ORDERED: SODIUM CHLORIDE 0.9% 500 ML 500 ML IV STA ×2 (13:57→16:50)
--- NOTE | 2019-05-17 14:08 | ED ---
General Adult HPI - General Source: patient, RN notes reviewed Mode of arrival: ambulatory Limitations: no limitations <Mateusz Lang - Last Filed: 05/17/19 17:24> <Jose Daniel Hendrix - Last Filed: 05/17/19 17:51> - General Chief complaint: Urogenital Stated complaint: bleeding after surgery last week Time Seen by Provider: 05/17/19 13:25 - History of Present Illness Initial comments: 79-year-old female with a past medical history of asthma, bacterial endocarditis, subdural hematoma, UTI presents to the emergency determine for a chief complaint of hematuria. This has been ongoing for the past 4 days. Patient had a cystoscopy performed on May 10 to remove some type of bladder cancer by Dr. Richards. Patient states that when she took out the catheter on Thursday she had some light bleeding. States that since that time the bleeding has worsened. Denies difficulty urinating. States that she did try to call the office yesterday but was unable to speak with someone. Patient states she stopped her Coumadin for the procedure but started again on Thursday. States she has been taking Her Lovenox consistently,. Patient has no other complaints at this time including shortness of breath, chest pain, abdominal pain, nausea or vomiting, headache, or visual changes. (Mateusz Lang) - Related Data Home Medications Medication Instructions Recorded Confirmed Citalopram Hydrobromide [CeleXA] 20 mg PO DAILY 12/18/16 05/10/19 Fluticasone/Salmeterol [Advair 1 puff INHALATION RT-BID 12/18/16 05/10/19 250-50 Diskus] LORazepam [Ativan] 1 mg PO HS 12/18/16 05/10/19 Warfarin [Coumadin] 2.5 mg PO SUTUWETHSA 11/26/17 05/10/19 Montelukast [Singulair] 10 mg PO HS 04/03/18 05/10/19 rOPINIRole HCL [Requip] 0.5 mg PO HS 04/03/18 05/10/19 Albuterol Inhaler [Ventolin Hfa 1 - 2 puff INHALATION RT-Q6H PRN 01/30/19 05/10/19 Inhaler] Loratadine [Claritin] 10 mg PO DAILY 01/30/19 05/10/19 Warfarin [Coumadin] 3.75 mg PO MOFR 01/30/19 05/10/19 Enoxaparin [Lovenox] 60 mg SQ Q12H 05/06/19 05/10/19 predniSONE See Taper PO DAILY 05/06/19 05/10/19 Previous Rx's Medication Instructions Recorded Cephalexin [Keflex] 500 mg PO TID #21 cap 05/17/19 Allergies Allergy/AdvReac Type Severity Reaction Status Date / Time No Known Allergies Allergy Verified 05/17/19 13:13 Review of Systems ROS Other: All systems not noted in ROS Statement are negative. <Mateusz Lang - Last Filed: 05/17/19 17:24> ROS Other: All systems not noted in ROS Statement are negative. <Jose Daniel Hendrix - Last Filed: 05/17/19 17:51> ROS Statement: Those systems with pertinent positive or pertinent negative responses have been documented in the HPI. Past Medical History Past Medical History: Asthma Additional Past Medical History / Comment(s): Bacterial endocarditis s/p tooth abscess, subdural hematoma, UTI History of Any Multi-Drug Resistant Organisms: None Reported Past Surgical History: Cardiac Valve Replacement Additional Past Surgical History / Comment(s): Mitral and aortic valve replacement -. Bladder suspension Past Anesthesia/Blood Transfusion Reactions: No Reported Reaction Past Psychological History: Anxiety, Depression Smoking Status: Never smoker - Past Family History Father Additional Family Medical History / Comment(s): endocarditis, rheumatic fever at age 32 Mother Additional Family Medical History / Comment(s): "embolism at 90" <Mateusz Lang - Last Filed: 05/17/19 17:24> General Exam Limitations: no limitations General appearance: alert, in no apparent distress Head exam: Present: atraumatic, normocephalic, normal inspection Eye exam: Present: normal appearance, PERRL, EOMI. Absent: scleral icterus, conjunctival injection, periorbital swelling ENT exam: Present: normal exam, mucous membranes moist Neck exam: Present: normal inspection, full ROM. Absent: tenderness, meningismus, lymphadenopathy Respiratory exam: Present: normal lung sounds bilaterally. Absent: respiratory distress, wheezes, rales, rhonchi, stridor Cardiovascular Exam: Present: regular rate, normal rhythm, normal heart sounds. Absent: systolic murmur, diastolic murmur, rubs, gallop, clicks GI/Abdominal exam: Present: soft, normal bowel sounds. Absent: distended, tenderness, guarding, rebound, rigid Neurological exam: Present: alert <Mateusz Lang - Last Filed: 05/17/19 17:24> Course Vital Signs 05/17/19 13:11 Temperature 97.5 F L Pulse Rate 83 Respiratory 20 Rate Blood Pressure 121/70 O2 Sat by Pulse 94 L Oximetry Medical Decision Making - Lab Data Result diagrams: 05/17/19 15:35 05/17/19 15:35 <Mateusz Lang - Last Filed: 05/17/19 17:24> - Lab Data Result diagrams: 05/17/19 15:35 05/17/19 15:35 <Jose Daniel Hendrix - Last Filed: 05/17/19 17:51> - Medical Decision Making Vitals are stable. CBC CMP is unremarkable. Patient does have some degree dehy dration was given fluids. INR is 2.2 which patient started again Thursday. Urine shows 182 red blood cells with 140 white cells. This was cultured. Patient was given 1 dose of antibiotics here in the emergency department. Ultrasound was obtained of the bladder which shows a solid rounded mass within the urinary bladder on the right side in the dependent portion that is probably blood clot. 2. Mass not excluded. Given patient's clinical history blood clot does seem likely. Care was signed out to Dr. Hendrix at 1730 pending conversation with urology (Mateusz Lang) Patient reevaluated and resting comfortably in bed. Abdomen soft nontender. Patient and family updated on results. Case discussed in detail with Dr. Falk who is comfortable with discharge. He does recommend urine culture and cover with antibiotics for possible infection although he feels that white cells are likely related with healing. (Jose Daniel Hendrix) - Lab Data Lab Results 05/17/19 05/17/19 05/17/19 Range/Units 13:50 15:35 15:35 WBC 5.5 (3.8-10.6) k/uL RBC 3.63 L (3.80-5.40) m/uL Hgb 11.7 (11.4-16.0) gm/dL Hct 34.4 (34.0-46.0) % MCV 94.8 (80.0-100.0) fL MCH 32.4 (25.0-35.0) pg MCHC 34.2 (31.0-37.0) g/dL RDW 13.6 (11.5-15.5) % Plt Count 95 L (150-450) k/uL Neutrophils % 75 % Lymphocytes % 18 % Monocytes % 5 % Eosinophils % 1 % Basophils % 0 % Neutrophils # 4.1 (1.3-7.7) k/uL Lymphocytes # 1.0 (1.0-4.8) k/uL Monocytes # 0.3 (0-1.0) k/uL Eosinophils # 0.1 (0-0.7) k/uL Basophils # 0.0 (0-0.2) k/uL PT (9.0-12.0) sec INR (<1.2) APTT (22.0-30.0) sec Sodium 138 (137-145) mmol/L Potassium 3.9 (3.5-5.1) mmol/L Chloride 109 H (98-107) mmol/L Carbon Dioxide 25 (22-30) mmol/L Anion Gap 4 mmol/L BUN 29 H (7-17) mg/dL Creatinine 0.71 (0.52-1.04) mg/dL Est GFR (CKD-EPI)AfAm >90 (>60 ml/min/1.73 sqM) Est GFR (CKD-EPI)NonAf 81 (>60 ml/min/1.73 sqM) Glucose 92 (74-99) mg/dL Calcium 8.5 (8.4-10.2) mg/dL Magnesium 1.7 (1.6-2.3) mg/dL Total Bilirubin 0.7 (0.2-1.3) mg/dL AST 30 (14-36) U/L ALT 29 (4-34) U/L Alkaline Phosphatase 48 (38-126) U/L Total Protein 5.5 L (6.3-8.2) g/dL Albumin 3.1 L (3.5-5.0) g/dL Urine Color Red Urine Appearance Bloody H (Clear) Urine RBC >182 H (0-5) /hpf Urine WBC 140 H (0-5) /hpf 05/17/19 Range/Units 15:35 WBC (3.8-10.6) k/uL RBC (3.80-5.40) m/uL Hgb (11.4-16.0) gm/dL Hct (34.0-46.0) % MCV (80.0-100.0) fL MCH (25.0-35.0) pg MCHC (31.0-37.0) g/dL RDW (11.5-15.5) % Plt Count (150-450) k/uL Neutrophils % % Lymphocytes % % Monocytes % % Eosinophils % % Basophils % % Neutrophils # (1.3-7.7) k/uL Lymphocytes # (1.0-4.8) k/uL Monocytes # (0-1.0) k/uL Eosinophils # (0-0.7) k/uL Basophils # (0-0.2) k/uL PT 21.2 H (9.0-12.0) sec INR 2.2 H (<1.2) APTT 32.8 H (22.0-30.0) sec Sodium (137-145) mmol/L Potassium (3.5-5.1) mmol/L Chloride (98-107) mmol/L Carbon Dioxide (22-30) mmol/L Anion Gap mmol/L BUN (7-17) mg/dL Creatinine (0.52-1.04) mg/dL Est GFR (CKD-EPI)AfAm (>60 ml/min/1.73 sqM) Est GFR (CKD-EPI)NonAf (>60 ml/min/1.73 sqM) Glucose (74-99) mg/dL Calcium (8.4-10.2) mg/dL Magnesium (1.6-2.3) mg/dL Total Bilirubin (0.2-1.3) mg/dL AST (14-36) U/L ALT (4-34) U/L Alkaline Phosphatase (38-126) U/L Total Protein (6.3-8.2) g/dL Albumin (3.5-5.0) g/dL Urine Color Urine Appearance (Clear) Urine RBC (0-5) /hpf Urine WBC (0-5) /hpf Disposition Is patient prescribed a controlled substance at d/c from ED?: No Time of Disposition: 17:28 <Mateusz Lang P - Last Filed: 05/17/19 17:24> Is patient prescribed a controlled substance at d/c from ED?: No <Jose Daniel Hendrix - Last Filed: 05/17/19 17:51> Clinical Impression: Hematuria Disposition: HOME SELF-CARE Condition: Good Instructions (If sedation given, give patient instructions): Hematuria (ED) Additional Instructions: Please follow up with Dr. Richards. Return here to the ER if you have any worsening symptoms or cannot urinate. Prescriptions: Cephalexin [Keflex] 500 mg PO TID #21 cap Referrals: Job Cheung III, MD [Primary Care Provider] - 1-2 days Ketan Richards MD [STAFF PHYSICIAN] - 1-2 days
[2019-05-17 15:03] LABS: RBC,Urine >182 /hpf (0-5); WBC,Urine 140 /hpf (0-5)
[2019-05-17 15:06] LABS: Appearance,Urine Bloody (Clear); Color,Urine Red
--- NOTE | 2019-05-17 15:19 | US ---
EXAMINATION TYPE: US bladder DATE OF EXAM: 05/17/2019 COMPARISON: NONE CLINICAL HISTORY: cytoscopy 1 week ago. gross hematuria since procedure 1 week ago Probable blood clot seen toward right sided of bladder = 2.7 x 3.6 x 2.0cm IMPRESSION: There is a abdominal a solid rounded mass within the urinary bladder on the right side in the dependent portion is probably up blood clot. Tumor mass not excluded.
[2019-05-17] MEDS ORDERED: cefTRIAXone IN SWFI 1,000 MG/10 ML SYRINGE IVP STA (15:24)
[2019-05-17 16:00] LABS: ALT 29 U/L (4-34); AST 30 U/L (14-36); African American GFR (CKD) >90 (>60 ml/min/1.73 sqM); Albumin 3.1 g/dL (3.5-5.0); Alkaline Phosphatase 48 U/L (38-126); Anion Gap 4 mmol/L; Blood Urea Nitrogen 29 mg/dL (7-17); Calcium 8.5 mg/dL (8.4-10.2); Carbon Dioxide 25 mmol/L (22-30); Chloride 109 mmol/L (98-107); Glucose 92 mg/dL (74-99); Magnesium 1.7 mg/dL (1.6-2.3); Non-African American GFR(CKD) 81 (>60 ml/min/1.73 sqM); Potassium 3.9 mmol/L (3.5-5.1); Sodium 138 mmol/L (137-145); Total Bilirubin 0.7 mg/dL (0.2-1.3); Total Protein 5.5 g/dL (6.3-8.2)
[2019-05-17 16:30] LABS: Basophils % (A) 0 %; Eosinophils # (A) 0.1 k/uL (0-0.7); Eosinophils % (A) 1 %; HCT 34.4 % (34.0-46.0); HGB 11.7 gm/dL (11.4-16.0); Lymphocytes % (A) 18 %; MCH 32.4 pg (25.0-35.0); MCHC 34.2 g/dL (31.0-37.0); MCV 94.8 fL (80.0-100.0); Mean Platelet Volume 8.5; Monocytes # (A) 0.3 k/uL (0-1.0); Monocytes % (A) 5 %; Neutrophils # (A) 4.1 k/uL (1.3-7.7); Neutrophils % (A) 75 %; RBC 3.63 m/uL (3.80-5.40); RDW 13.6 % (11.5-15.5); WBC 5.5 k/uL (3.8-10.6)
[2019-05-17 16:31] LABS: Platelet Count 95 k/uL (150-450)
[2019-05-17 17:21] LABS: INR 2.2 (<1.2); Partial Thromboplastin Time 32.8 sec (22.0-30.0); Prothrombin Time 21.2 sec (9.0-12.0)
[2019-05-17] MEDS ORDERED: ONDANSETRON 4 MG/2 ML VIAL IVP STA (17:45)
[2019-05-17 18:04] VITALS: BP 132/74; PULSE 76; RESP 16
== END 2019-05-17 18:04 | disposition home or self-care (01) ==
LOC: EC 13:04
DX: R31.9 Hematuria, unspecified (principal); E86.0 Dehydration; J45.909 Unspecified asthma, uncomplicated; F41.9 Anxiety disorder, unspecified; F32.9 Major depressive disorder, single episode, unspecified; Z79.01 Long term (current) use of anticoagulants; Z79.51 Long term (current) use of inhaled steroids; Z79.899 Other long term (current) drug therapy; Z95.2 Presence of prosthetic heart valve; Z85.51 Personal history of malignant neoplasm of bladder
CPT/HCPCS: 99284; 96374; 96375; 51798; 36415; 80053; 83735; 85025; 85610; 85730; 81001; 87086; 76857; J2405; J0696

== ENCOUNTER → 2019-07-04 | Outpatient (CLI) | payer MEDICARE, OTHER ==
--- NOTE | 2019-07-04 12:57 | XR ---
EXAMINATION TYPE: XR Hip Bilateral Complete DATE OF EXAM: 07/04/2019 COMPARISON: NONE HISTORY: Pain TECHNIQUE: 2 views submitted of each hip. FINDINGS: There is no evidence of erosive change or acute fracture. Concentric narrowing the hip joint with hyp ertrophic change of the acetabulum. Diffuse osteopenia. Spurring along the inferior margin of the fem oral head bilaterally. IMPRESSION: 1. Bilateral hip arthropathy correlate for femoral acetabular impingement.
== END | disposition home or self-care (01) ==
LOC: RADXRMAIN 12:34
PROVIDERS: ATTEND Family Medicine
DX: M12.852 Other specific arthropathies, not elsewhere classified, left hip (principal); M12.851 Other specific arthropathies, not elsewhere classified, right hip
CPT/HCPCS: 73521

== ENCOUNTER 2019-08-29 15:17 | Emergency (ER) | payer MEDICARE, OTHER ==
[2019-08-29 15:25] VITALS: RESP 18
[2019-08-29 16:24] LABS: Basophils % (A) 1 %; Eosinophils # (A) 0.1 k/uL (0-0.7); Eosinophils % (A) 2 %; HCT 40.5 % (34.0-46.0); HGB 13.7 gm/dL (11.4-16.0); Lymphocytes # (A) 1.4 k/uL (1.0-4.8); Lymphocytes % (A) 27 %; MCH 31.1 pg (25.0-35.0); MCHC 33.8 g/dL (31.0-37.0); Mean Platelet Volume 8.9; Monocytes # (A) 0.3 k/uL (0-1.0); Monocytes % (A) 5 %; Neutrophils # (A) 3.5 k/uL (1.3-7.7); Neutrophils % (A) 64 %; Platelet Count 151 k/uL (150-450); RDW 14.1 % (11.5-15.5); WBC 5.4 k/uL (3.8-10.6)
[2019-08-29 16:39] LABS: ALT 13 U/L (4-34); AST 27 U/L (14-36); African American GFR (CKD) >90 (>60 ml/min/1.73 sqM); Albumin 4.6 g/dL (3.5-5.0); Alkaline Phosphatase 69 U/L (38-126); Anion Gap 7 mmol/L; Blood Urea Nitrogen 20 mg/dL (7-17); C Reactive Protein <5.0 mg/L (<10.0); Calcium 9.8 mg/dL (8.4-10.2); Carbon Dioxide 27 mmol/L (22-30); Chloride 105 mmol/L (98-107); Glucose 72 mg/dL (74-99); Non-African American GFR(CKD) 82 (>60 ml/min/1.73 sqM); Potassium 4.4 mmol/L (3.5-5.1); Sodium 139 mmol/L (137-145); Total Bilirubin 0.7 mg/dL (0.2-1.3); Total Protein 7.6 g/dL (6.3-8.2)
--- NOTE | 2019-08-29 16:43 | XR ---
EXAMINATION TYPE: XR knee complete RT DATE OF EXAM: 08/29/2019 COMPARISON: NONE HISTORY: Pain TECHNIQUE: Three views are submitted. FINDINGS: Osseous structures are intact. No acute fracture seen. Diffuse osteopenia. Arthropathy of the media l compartment of the knee joint. IMPRESSION: 1. No acute fracture or dislocation. 2. Arthropathy.
--- NOTE | 2019-08-29 16:45 | XR ---
EXAMINATION TYPE: XR chest 2V DATE OF EXAM: 08/29/2019 COMPARISON: 04/03/2018 TECHNIQUE: PA and lateral views submitted. HISTORY: Shortness of breath FINDINGS: The lungs are clear and there is no pneumothorax, pleural effusion, or focal pneumonia. Hyperinflat ion noted. There is atherosclerotic change aorta. Postsurgical changes seen. No overt failure. Nodula r density overlying the right midlung measuring 1 cm. Degenerative change of the spine. IMPRESSION: 1. No acute process. Correlate for COPD. Cannot exclude a small nodule in the right midlung. Recommen d short-term follow-up PA and lateral views to assess whether this represents partial volume averagin g and overlapping structures or true pulmonary nodule.
--- NOTE | 2019-08-29 17:12 | US ---
EXAMINATION TYPE: US venous doppler duplex LE RT DATE OF EXAM: 08/29/2019 4:13 PM COMPARISON: NONE CLINICAL HISTORY: leg swelling, short of breath. Right thigh pain and swelling. On blood thinners. SIDE PERFORMED: Right TECHNIQUE: The lower extremity deep venous system is examined utilizing real time linear array sonog bautista with graded compression, doppler sonography and color-flow sonography. VESSELS IMAGED: External Iliac Vein (EIV) Common Femoral Vein Deep Femoral Vein Greater Saphenous Vein * Femoral Vein Popliteal Vein Small Saphenous Vein * Proximal Calf Veins (* superficial vessels) Right Leg: Negative for DVT IMPRESSION: 1. No diagnostic evidence of DVT as visualized.
[2019-08-29 17:13] LABS: Erythrocyte Sedimentation Rate 20 mm/hr (0-20)
--- NOTE | 2019-08-29 18:11 | ED ---
General Adult HPI - General Chief complaint: Extremity Injury, Lower Stated complaint: SOB,cough,leg swelling Source: patient, family Mode of arrival: ambulatory Limitations: no limitations - History of Present Illness Initial comments: The patient is an 79-year-old female past medical history of mitral and aortic valve replacement, asthma who presents emergency room with reported fatigue dry cough and shortness of breath. The patient states that she's had the symptoms for the past several weeks. She went to the urgent care on and was diagnosed with pneumonia by a chest x-ray. She is started on azithromycin and states that she has been feeling well on antibiotics. She then noted last night that she began having swelling to the inside of her right knee and got concerned for a possible DVT. She denies having any injury to the site. States that she does not have any pain. No warmth or swelling. No history of DVT or PE. Denies any chest pain. She states the last time she felt this week she had endocarditis from a dental infection. Does see a friction paint machine tender out of [facility]. Denies any fevers or chills. No production with the cough. Denies any back or flank pain. No changes in her urination to include dysuria, hematuria or difficulty voiding. Does have a appointment with her primary care doctor on Thursday. There are no alleviating, precipitating or modifying factors - Related Data Home Medications Medication Instructions Recorded Confirmed Citalopram Hydrobromide [CeleXA] 20 mg PO DAILY 12/18/16 05/10/19 Fluticasone/Salmeterol [Advair 1 puff INHALATION RT-BID 12/18/16 05/10/19 250-50 Diskus] LORazepam [Ativan] 1 mg PO HS 12/18/16 05/10/19 Warfarin [Coumadin] 2.5 mg PO SUTUWETHSA 11/26/17 05/10/19 Montelukast [Singulair] 10 mg PO HS 04/03/18 05/10/19 rOPINIRole HCL [Requip] 0.5 mg PO HS 04/03/18 05/10/19 Albuterol Inhaler (Bulk) [Ventolin 1 - 2 puff INHALATION RT-Q6H PRN 01/30/19 05/10/19 Hfa Inhaler] Loratadine [Claritin] 10 mg PO DAILY 01/30/19 05/10/19 Warfarin [Coumadin] 3.75 mg PO MOFR 01/30/19 05/10/19 Enoxaparin [Lovenox] 60 mg SQ Q12H 05/06/19 05/10/19 predniSONE See Taper PO DAILY 05/06/19 05/10/19 Previous Rx's Medication Instructions Recorded Cephalexin [Keflex] 500 mg PO TID #21 cap 05/17/19 Allergies Allergy/AdvReac Type Severity Reaction Status Date / Time No Known Allergies Allergy Verified 05/17/19 13:13 Review of Systems ROS Statement: Those systems with pertinent positive or pertinent negative responses have been documented in the HPI. ROS Other: All systems not noted in ROS Statement are negative. Past Medical History Past Medical History: Asthma Additional Past Medical History / Comment(s): Bacterial endocarditis s/p tooth abscess, subdural hematoma, UTI History of Any Multi-Drug Resistant Organisms: None Reported Past Surgical History: Cardiac Valve Replacement Additional Past Surgical History / Comment(s): Mitral and aortic valve repla cement -. Bladder suspension Past Anesthesia/Blood Transfusion Reactions: No Reported Reaction Past Psychological History: Anxiety, Depression Smoking Status: Never smoker Past Alcohol Use History: Occasional Past Drug Use History: None Reported - Past Family History Father Additional Family Medical History / Comment(s): endocarditis, rheumatic fever at age 32 Mother Additional Family Medical History / Comment(s): "embolism at 90" General Exam Limitations: no limitations Course Vital Signs 08/29/19 08/29/19 15:20 18:24 Temperature 97.3 F L 97.8 F Pulse Rate 89 70 Respiratory 18 18 Rate Blood Pressure 138/66 132/84 O2 Sat by Pulse 96 98 Oximetry EKG Findings - EKG Comments: EKG Findings:: EKG demonstrates normal sinus rhythm with a ventricular rate of 73. TX interval 130. QRS 92. QTC of 480. Mild J-point elevation in 3 and aVF. No worse typical changes. Medical Decision Making - Medical Decision Making Upon arrival the patient is placed into room 1. A thorough history and physical exam was performed. Laboratory studies were completed which demonstrate a subtherapeutic INR of 2 for a valve replacement. D-dimer 0.43. CBC is normal. CMP shows a glucose of 72. Troponin and a C-reactive protein are both negative. BNP mildly elevated at 722. Urinalysis shows moderate leukocyte esterase and 11 white blood cells however the patient denies any symptoms and recently had a negative urine culture at the urgent care. Venous Doppler of the lower extremity demonstrates no acute DVT. Did perform a right knee x-ray as the swelling. Prominent on this region which demonstrates arthropathy of the medial compartment chest x-ray demonstrates no acute process however correlate for COPD. Cannot exclude a small nodule in the right midlung. I discussed these results with the patient. The patient is eagar to leave. I did inform he r that she should follow up with her primary care doctor for which she does have an appointment on Thursday. Return to the emergency room for any worsening symptoms. The patient was discharged home in stable condition - Lab Data Result diagrams: 08/29/19 15:40 08/29/19 15:40 Lab Results 08/29/19 08/29/19 08/29/19 Range/Units 15:40 15:40 15:40 WBC 5.4 (3.8-10.6) k/uL RBC 4.40 (3.80-5.40) m/uL Hgb 13.7 (11.4-16.0) gm/dL Hct 40.5 (34.0-46.0) % MCV 92.0 (80.0-100.0) fL MCH 31.1 (25.0-35.0) pg MCHC 33.8 (31.0-37.0) g/dL RDW 14.1 (11.5-15.5) % Plt Count 151 (150-450) k/uL Neutrophils % 64 % Lymphocytes % 27 % Monocytes % 5 % Eosinophils % 2 % Basophils % 1 % Neutrophils # 3.5 (1.3-7.7) k/uL Lymphocytes # 1.4 (1.0-4.8) k/uL Monocytes # 0.3 (0-1.0) k/uL Eosinophils # 0.1 (0-0.7) k/uL Basophils # 0.0 (0-0.2) k/uL ESR 20 (0-20) mm/hr PT (9.0-12.0) sec INR (<1.2) D-Dimer 0.43 (<0.60) mg/L FEU Sodium 139 (137-145) mmol/L Potassium 4.4 (3.5-5.1) mmol/L Chloride 105 (98-107) mmol/L Carbon Dioxide 27 (22-30) mmol/L Anion Gap 7 mmol/L BUN 20 H (7-17) mg/dL Creatinine 0.70 (0.52-1.04) mg/dL Est GFR (CKD-EPI)AfAm >90 (>60 ml/min/1.73 sqM) Est GFR (CKD-EPI)NonAf 82 (>60 ml/min/1.73 sqM) Glucose 72 L (74-99) mg/dL Plasma Lactic Acid Joni (0.7-2.0) mmol/L Calcium 9.8 (8.4-10.2) mg/dL Total Bilirubin 0.7 (0.2-1.3) mg/dL AST 27 (14-36) U/L ALT 13 (4-34) U/L Alkaline Phosphatase 69 (38-126) U/L Troponin I (0.000-0.034) ng/mL C-Reactive Protein <5.0 (<10.0) mg/L NT-Pro-B Natriuret Pep pg/mL Total Protein 7.6 (6.3-8.2) g/dL Albumin 4.6 (3.5-5.0) g/dL TSH 2.780 (0.465-4.680) mIU/L Urine Color Urine Appearance (Clear) Urine pH (5.0-8.0) Ur Specific [place] (1.001-1.035) Urine Protein (Negative) Urine Glucose (UA) (Negative) Urine Ketones (Negative) Urine Blood (Negative) Urine Nitrite (Negative) Urine Bilirubin (Negative) Urine Urobilinogen (<2.0) mg/dL Ur Leukocyte Esterase (Negative) Urine RBC (0-5) /hpf Urine WBC (0-5) /hpf Ur Squamous Epith Cells (0-4) /hpf Hyaline Casts (0-2) /lpf Urine Mucus (None) /hpf 08/29/19 08/29/19 08/29/19 Range/Units 15:40 15:40 15:40 WBC (3.8-10.6) k/uL RBC (3.80-5.40) m/uL Hgb (11.4-16.0) gm/dL Hct (34.0-46.0) % MCV (80.0-100.0) fL MCH (25.0-35.0) pg MCHC (31.0-37.0) g/dL RDW (11.5-15.5) % Plt Count (150-450) k/uL Neutrophils % % Lymphocytes % % Monocytes % % Eosinophils % % Basophils % % Neutrophils # (1.3-7.7) k/uL Lymphocytes # (1.0-4.8) k/uL Monocytes # (0-1.0) k/uL Eosinophils # (0-0.7) k/uL Basophils # (0-0.2) k/uL ESR (0-20) mm/hr PT (9.0-12.0) sec INR (<1.2) D-Dimer (<0.60) mg/L FEU Sodium (137-145) mmol/L Potassium (3.5-5.1) mmol/L Chloride (98-107) mmol/L Carbon Dioxide (22-30) mmol/L Anion Gap mmol/L BUN (7-17) mg/dL Creatinine (0.52-1.04) mg/dL Est GFR (CKD-EPI)AfAm (>60 ml/min/1.73 sqM) Est GFR (CKD-EPI)NonAf (>60 ml/min/1.73 sqM) Glucose (74-99) mg/dL Plasma Lactic Acid Joni 1.3 (0.7-2.0) mmol/L Calcium (8.4-10.2) mg/dL Total Bilirubin (0.2-1.3) mg/dL AST (14-36) U/L ALT (4-34) U/L Alkaline Phosphatase (38-126) U/L Troponin I <0.012 (0.000-0.034) ng/mL C-Reactive Protein (<10.0) mg/L NT-Pro-B Natriuret Pep 722 pg/mL Total Protein (6.3-8.2) g/dL Albumin (3.5-5.0) g/dL TSH (0.465-4.680) mIU/L Urine Color Urine Appearance (Clear) Urine pH (5.0-8.0) Ur Specific [place] (1.001-1.035) Urine Protein (Negative) Urine Glucose (UA) (Negative) Urine Ketones (Negative) Urine Blood (Negative) Urine Nitrite (Negative) Urine Bilirubin (Negative) Urine Urobilinogen (<2.0) mg/dL Ur Leukocyte Esterase (Negative) Urine RBC (0-5) /hpf Urine WBC (0-5) /hpf Ur Squamous Epith Cells (0-4) /hpf Hyaline Casts (0-2) /lpf Urine Mucus (None) /hpf 08/29/19 08/29/19 Range/Units 15:40 17:50 WBC (3.8-10.6) k/uL RBC (3.80-5.40) m/uL Hgb (11.4-16.0) gm/dL Hct (34.0-46.0) % MCV (80.0-100.0) fL MCH (25.0-35.0) pg MCHC (31.0-37.0) g/dL RDW (11.5-15.5) % Plt Count (150-450) k/uL Neutrophils % % Lymphocytes % % Monocytes % % Eosinophils % % Basophils % % Neutrophils # (1.3-7.7) k/uL Lymphocytes # (1.0-4.8) k/uL Monocytes # (0-1.0) k/uL Eosinophils # (0-0.7) k/uL Basophils # (0-0.2) k/uL ESR (0-20) mm/hr PT 19.6 H (9.0-12.0) sec INR 2.0 H (<1.2) D-Dimer (<0.60) mg/L FEU Sodium (137-145) mmol/L Potassium (3.5-5.1) mmol/L Chloride (98-107) mmol/L Carbon Dioxide (22-30) mmol/L Anion Gap mmol/L BUN (7-17) mg/dL Creatinine (0.52-1.04) mg/dL Est GFR (CKD-EPI)AfAm (>60 ml/min/1.73 sqM) Est GFR (CKD-EPI)NonAf (>60 ml/min/1.73 sqM) Glucose (74-99) mg/dL Plasma Lactic Acid Joni (0.7-2.0) mmol/L Calcium (8.4-10.2) mg/dL Total Bilirubin (0.2-1.3) mg/dL AST (14-36) U/L ALT (4-34) U/L Alkaline Phosphatase (38-126) U/L Troponin I (0.000-0.034) ng/mL C-Reactive Protein (<10.0) mg/L NT-Pro-B Natriuret Pep pg/mL Total Protein (6.3-8.2) g/dL Albumin (3.5-5.0) g/dL TSH (0.465-4.680) mIU/L Urine Color Yellow Urine Appearance Clear (Clear) Urine pH 5.5 (5.0-8.0) Ur Specific [place] 1.013 (1.001-1.035) Urine Protein Negative (Negative) Urine Glucose (UA) Negative (Negative) Urine Ketones Negative (Negative) Urine Blood Negative (Negative) Urine Nitrite Negative (Negative) Urine Bilirubin Negative (Negative) Urine Urobilinogen <2.0 (<2.0) mg/dL Ur Leukocyte Esterase Moderate H (Negative) Urine RBC 2 (0-5) /hpf Urine WBC 11 H (0-5) /hpf Ur Squamous Epith Cells <1 (0-4) /hpf Hyaline Casts 3 H (0-2) /lpf Urine Mucus Rare H (None) /hpf Disposition Clinical Impression: Right leg swelling, Cough, Anticoagulated on Coumadin, Weakness Disposition: HOME SELF-CARE Condition: Stable Instructions (If sedation given, give patient instructions): Leg Edema (ED), Weakness (ED) Additional Instructions: Please follow-up with your primary care doctor at your scheduled appointment on Thursday. Return to the emergency room for any new or worsening symptoms Is patient prescribed a controlled substance at d/c from ED?: No Referrals: Alfredito Stuart MD [Primary Care Provider] - 1-2 days Time of Disposition: 18:12
[2019-08-29 18:17] LABS: Appearance,Urine Clear (Clear); Bilirubin,Urine Negative (Negative); Blood,Urine Negative (Negative); Color,Urine Yellow; Glucose,Urine (UA) Negative (Negative); Hyaline Casts,Urine 3 /lpf (0-2); Ketones,Urine Negative (Negative); Leukocyte Esterase,Urine Moderate (Negative); Mucus,Urine Rare /hpf; Nitrite,Urine Negative (Negative); PH, Urine 5.5 (5.0-8.0); Protein,Urine Negative (Negative); RBC,Urine 2 /hpf (0-5); Specific Gravity,Urine 1.013 (1.001-1.035); Squamous Epithelial Cell,Urine <1 /hpf (0-4); Urobilinogen,Urine <2.0 mg/dL (<2.0); WBC,Urine 11 /hpf (0-5)
[2019-08-29 18:24] LABS: Prothrombin Time 19.6 sec (9.0-12.0)
[2019-08-29 18:25] VITALS: BP 132/84; PULSE 70; TEMP 97.8
== END 2019-08-29 18:24 | disposition home or self-care (01) ==
LOC: EC 15:17
DX: M79.89 Other specified soft tissue disorders (principal); R05 Cough; R53.1 Weakness; Z79.01 Long term (current) use of anticoagulants; J45.909 Unspecified asthma, uncomplicated; F41.9 Anxiety disorder, unspecified; F32.9 Major depressive disorder, single episode, unspecified; Z79.51 Long term (current) use of inhaled steroids; Z79.899 Other long term (current) drug therapy; Z95.4 Presence of other heart-valve replacement; Z95.2 Presence of prosthetic heart valve
CPT/HCPCS: 36415; 71046; 80053; 81001; 83605; 83880; 84443; 84484; 85025; 85379; 85610; 85652; 86140; 87086; 93005; 99285

== ENCOUNTER 2019-08-31 10:53 | Inpatient (IN) | payer MEDICARE, OTHER ==
--- NOTE | 2019-08-31 11:31 | ED ---
General Adult HPI - General Chief complaint: Shortness of Breath Stated complaint: poss shingles, cough Time Seen by Provider: 08/31/19 11:10 Source: patient Mode of arrival: wheelchair Limitations: no limitations - History of Present Illness Initial comments: Dictation was produced using [employer] dictation software. please excuse any grammatical, word or spelling errors. This patient was cared for during a federal and state declared state of fabby rgency secondary to Covid 19 Chief Complaint: 79-year-old female presents to the emergency department for productive cough, fatigue and shortness of breath History of Present Illness: And 79-year-old female she presents today with shortness breath, fatigue and cough. Patient was seen here 2 days ago. She is suffering from symptoms since one week. She states that she feels like her s ymptoms have been getting worse since yesterday. She was seen here 2 days ago where she had an evaluation performed. At that time there no significant causes for patient's symptoms. There was an incidental finding of a small nodule in the right midlung. She is ready completed a course of azithromycin which time she was taken improved her symptoms. Patient does take Coumadin. The ROS documented in this emergency department record has been reviewed and confirmed by me. Those systems with pertinent positive or negative responses have been documented in the HPI. All other systems are other negative and/or noncontributory. PHYSICAL EXAM: General Impression: Alert and oriented x3, not in acute distress HEENT: Normocephalic atraumatic, extra-ocular movements intact, pupils equal and reactive to light bilaterally, mucous membranes moist. Cardiovascular: Heart regular rate and rhythm Chest: Able to complete full sentences, no retractions, no tachypnea Abdomen: Bowel sounds present, abdomen soft, non-tender, non-distended, no organomegaly Musculoskeletal: Pulses present and equal in all extremities, no peripheral edema Motor: no focal deficits noted Neurological: CN II-XII grossly intact, no focal motor or sensory deficits noted Skin: Intact with no visualized rashes Psych: Normal affect and mood ED course: 79-year-old female presents with shortness of breath, fatigue as well as persistent. She was evaluated in emergency department 2 days ago. As upon arrival are within acceptable limits. Patient is not hypoxic. Laboratory evaluation obtained. CBC unremarkable. Metabolic panel shows findings to suggest mild dehydration. Before meals slightly elevated at 31. Troponin is 0.026. Prematurity peptide is 535. Patient's reevaluated at bedside. She does report that her symptoms are exertional. Clinical presentation concerning for acute coronary syndrome. Patient does not appear short of breath at rest. She does take Coumadin. Patient given aspirin dose. [facility]. Patient to be tested with serial troponins. EKG interpretation: Ventricular rate 81, normal sinus rhythm,. Interval 134, QRS 92, QTC 497. No NM prolongation, no QTC prolongation, no ST or T-wave changes noted. EKG compared to 08/29/2019 showing no changes. Overall, this EKG is unremarkable - Related Data Home Medications Medication Instructions Recorded Confirmed Fluticasone/Salmeterol [Advair 1 puff INHALATION RT-BID 12/18/16 08/31/19 250-50 Diskus] Warfarin [Coumadin] 2.5 mg PO DAILY 11/26/17 08/31/19 Montelukast [Singulair] 10 mg PO HS 04/03/18 08/31/19 rOPINIRole HCL [Requip] 0.5 mg PO HS 04/03/18 08/31/19 Albuterol Inhaler (Bulk) [Ventolin 1 - 2 puff INHALATION RT-Q6H PRN 01/30/19 08/31/19 Hfa Inhaler] Loratadine [Claritin] 10 mg PO DAILY 01/30/19 08/31/19 Benzonatate [Tessalon Perles] 100 mg PO BID 08/31/19 08/31/19 Mirabegron [Myrbetriq] 25 mg PO DAILY 08/31/19 08/31/19 Sertraline [Zoloft] 25 mg PO HS 08/31/19 08/31/19 Sertraline [Zoloft] 50 mg PO DAILY 08/31/19 08/31/19 traZODone HCL 50 mg PO HS 08/31/19 08/31/19 Allergies Allergy/AdvReac Type Severity Reaction Status Date / Time No Known Allergies Allergy Verified 08/31/19 11:43 Review of Systems ROS Statement: Those systems with pertinent positive or pertinent negative responses have been documented in the HPI. ROS Other: All systems not noted in ROS Statement are negative. Past Medical History Past Medical History: Asthma Additional Past Medical History / Comment(s): Bacterial endocarditis s/p tooth abscess, subdural hematoma, UTI History of Any Multi-Drug Resistant Organisms: None Reported Past Surgical History: Cardiac Valve Replacement Additional Past Surgical History / Comment(s): Mitral and aortic valve replacement -. Bladder suspension Past Anesthesia/Blood Transfusion Reactions: No Reported Reaction Past Psychological History: Anxiety, Depression Smoking Status: Never smoker Past Alcohol Use History: Occasional Past Drug Use History: None Reported - Past Family History Father Additional Family Medical History / Comment(s): endocarditis, rheumatic fever at age 32 Mother Additional Family Medical History / Comment(s): "embolism at 90" General Exam Limitations: no limitations Course Vital Signs 08/31/19 10:56 Temperature 97.5 F L Pulse Rate 82 Respiratory 18 Rate Blood Pressure 127/65 O2 Sat by Pulse 97 Oximetry Medical Decision Making - Lab Data Result diagrams: 08/31/19 11:15 08/31/19 11:15 Lab Results 08/31/19 08/31/19 08/31/19 Range/Units 11:15 11:15 11:15 WBC 4.7 (3.8-10.6) k/uL RBC 4.39 (3.80-5.40) m/uL Hgb 13.3 (11.4-16.0) gm/dL Hct 40.0 (34.0-46.0) % MCV 91.1 (80.0-100.0) fL MCH 30.3 (25.0-35.0) pg MCHC 33.2 (31.0-37.0) g/dL RDW 13.9 (11.5-15.5) % Plt Count 120 L (150-450) k/uL Neutrophils % 57 % Lymphocytes % 32 % Monocytes % 6 % Eosinophils % 4 % Basophils % 0 % Neutrophils # 2.7 (1.3-7.7) k/uL Lymphocytes # 1.5 (1.0-4.8) k/uL Monocytes # 0.3 (0-1.0) k/uL Eosinophils # 0.2 (0-0.7) k/uL Basophils # 0.0 (0-0.2) k/uL Sodium 138 (137-145) mmol/L Potassium 4.3 (3.5-5.1) mmol/L Chloride 106 (98-107) mmol/L Carbon Dioxide 25 (22-30) mmol/L Anion Gap 7 mmol/L BUN 19 H (7-17) mg/dL Creatinine 0.73 (0.52-1.04) mg/dL Est GFR (CKD-EPI)AfAm >90 (>60 ml/min/1.73 sqM) Est GFR (CKD-EPI)NonAf 78 (>60 ml/min/1.73 sqM) Glucose 101 H (74-99) mg/dL Calcium 9.4 (8.4-10.2) mg/dL Magnesium 2.1 (1.6-2.3) mg/dL Total Bilirubin 1.0 (0.2-1.3) mg/dL AST 39 H (14-36) U/L ALT 13 (4-34) U/L Alkaline Phosphatase 68 (38-126) U/L Troponin I 0.026 (0.000-0.034) ng/mL NT-Pro-B Natriuret Pep pg/mL Total Protein 7.2 (6.3-8.2) g/dL Albumin 4.2 (3.5-5.0) g/dL 08/31/19 Range/Units 11:15 WBC (3.8-10.6) k/uL RBC (3.80-5.40) m/uL Hgb (11.4-16.0) gm/dL Hct (34.0-46.0) % MCV (80.0-100.0) fL MCH (25.0-35.0) pg MCHC (31.0-37.0) g/dL RDW (11.5-15.5) % Plt Count (150-450) k/uL Neutrophils % % Lymphocytes % % Monocytes % % Eosinophils % % Basophils % % Neutrophils # (1.3-7.7) k/uL Lymphocytes # (1.0-4.8) k/uL Monocytes # (0-1.0) k/uL Eosinophils # (0-0.7) k/uL Basophils # (0-0.2) k/uL Sodium (137-145) mmol/L Potassium (3.5-5.1) mmol/L Chloride (98-107) mmol/L Carbon Dioxide (22-30) mmol/L Anion Gap mmol/L BUN (7-17) mg/dL Creatinine (0.52-1.04) mg/dL Est GFR (CKD-EPI)AfAm (>60 ml/min/1.73 sqM) Est GFR (CKD-EPI)NonAf (>60 ml/min/1.73 sqM) Glucose (74-99) mg/dL Calcium (8.4-10.2) mg/dL Magnesium (1.6-2.3) mg/dL Total Bilirubin (0.2-1.3) mg/dL AST (14-36) U/L ALT (4-34) U/L Alkaline Phosphatase (38-126) U/L Troponin I (0.000-0.034) ng/mL NT-Pro-B Natriuret Pep 535 pg/mL Total Protein (6.3-8.2) g/dL Albumin (3.5-5.0) g/dL Disposition Clinical Impression: ACS (acute coronary syndrome) Disposition: ADMITTED IP TO THIS HOSP Condition: Fair Referrals: Alfredito Stuart MD [Primary Care Provider] - 1-2 days Time of Disposition: 12:40
[2019-08-31 11:34] LABS: Basophils % (A) 0 %; Eosinophils # (A) 0.2 k/uL (0-0.7); Eosinophils % (A) 4 %; HGB 13.3 gm/dL (11.4-16.0); Lymphocytes # (A) 1.5 k/uL (1.0-4.8); Lymphocytes % (A) 32 %; MCH 30.3 pg (25.0-35.0); MCHC 33.2 g/dL (31.0-37.0); MCV 91.1 fL (80.0-100.0); Mean Platelet Volume 8.5; Monocytes # (A) 0.3 k/uL (0-1.0); Monocytes % (A) 6 %; Neutrophils # (A) 2.7 k/uL (1.3-7.7); Neutrophils % (A) 57 %; Platelet Count 120 k/uL (150-450); RBC 4.39 m/uL (3.80-5.40); RDW 13.9 % (11.5-15.5); WBC 4.7 k/uL (3.8-10.6)
[2019-08-31 11:45] LABS: ALT 13 U/L (4-34); AST 39 U/L (14-36); African American GFR (CKD) >90 (>60 ml/min/1.73 sqM); Albumin 4.2 g/dL (3.5-5.0); Alkaline Phosphatase 68 U/L (38-126); Anion Gap 7 mmol/L; Blood Urea Nitrogen 19 mg/dL (7-17); Calcium 9.4 mg/dL (8.4-10.2); Carbon Dioxide 25 mmol/L (22-30); Chloride 106 mmol/L (98-107); Glucose 101 mg/dL (74-99); Magnesium 2.1 mg/dL (1.6-2.3); Non-African American GFR(CKD) 78 (>60 ml/min/1.73 sqM); Potassium 4.3 mmol/L (3.5-5.1); Sodium 138 mmol/L (137-145); Total Protein 7.2 g/dL (6.3-8.2)
--- NOTE | 2019-08-31 12:08 | XR ---
EXAMINATION TYPE: XR chest 1V DATE OF EXAM: 08/31/2019 HISTORY: Shortness of breath. COMPARISON: 08/29/2019 TECHNIQUE: Single view of the chest is submitted. FINDINGS: Demonstrated are scattered senescent parenchymal change. There is no evidence for focal infiltrate. Previously noted nodular density is not redemonstrated. The heart is stable. Hilar and mediastinal structures are within normal limits. Degenerative changes are seen of the dorsal spine. IMPRESSION: 1. Chronic changes without evidence for acute pulmonary disease.
[2019-08-31] MEDS ORDERED: SODIUM CHLORIDE 0.9% 1,000 ML IV STA (12:11)
[2019-08-31] MEDS ORDERED: ASPIRIN 81 MG PO STA (12:34)
[2019-08-31] MEDS ORDERED: NITROGLYCERIN SL TABS 0.4 MG TAB SUBLINGUAL PRN (12:40)
[2019-08-31 13:13] LABS: INR 1.3 (<1.2); Prothrombin Time 13.3 sec (9.0-12.0)
[2019-08-31] MEDS ORDERED: ALBUTEROL NEBULIZED 2.5 MG/3 ML INHALATION PRN (13:22)
--- NOTE | 2019-08-31 13:32 | P.HPIM ---
History of Present Illness Patient is a pleasant 79-year-old female was sent in from PCPs office because of cough which is chronic mostly dry cough occasionally productive with clear sputum has been going on for about a month denied any orthopnea proximal noct urnal dyspnea. Patient cough and shortness of breath or exertional. Patient denied any fever chills patient was tested for covid19 here which was negative. Patient's EKG showed normal saline sinus rhythm without any acute ST-T wave changes there is mild QT prolongation all the rest of the workup is negative patient is BNP is only 500 and patient chest x-ray did not show any acute changes patient does have history of asthma used to smoke in the past may have had COPD 2 doesn't use any oxygen at home. Etiology of shortness of breath is not clear can be some cough variant asthma with mild shortness of breath although there is no wheezing. Patient is on medications for cough. Patient had a I aortic valve and mitral valve that was replaced unsure whether it's a mechanical heart valve her INR is only 1.3 and patient is on Coumadin I can't really figure out why patient is on Coumadin unless she has a mechanical heart valve. After extensive review of her chart I still can't find whether patient had a mechanical heart valve. The only abnormality is very minimally elevated troponin of 0.026 , because his of that reason ER physician requested me to admit for monitoring overnight and repeat troponins. Repeat echocardiogram will be obtained Review of Systems REVIEW OF SYSTEMS: CONSTITUTIONAL: No fever, no malaise, no fatigue. HEENT: No recent visual problems or hearing problems. Denied any sore throat. CARDIOVASCULAR: No chest pain, orthopnea, PND, no palpitations, no syncope. PULMONARY: no hemoptysis. GASTROINTESTINAL: No diarrhea, no nausea, no vomiting, no abdominal pain. NEUROLOGICAL: No headaches, no weakness, no numbness. HEMATOLOGICAL: Denies any bleeding or petechiae. GENITOURINARY: Denies any burning micturition, frequency, or urgency. MUSCULOSKELETAL/RHEUMATOLOGICAL: Denies any joint pain, swelling, or any muscle pain. ENDOCRINE: Denies any polyuria or polydipsia. The rest of the 14-point review of systems is negative. Past Medical History Past Medical History: Asthma Additional Past Medical History / Comment(s): Bacterial endocarditis s/p tooth abscess, subdural hematoma, UTI History of Any Multi-Drug Resistant Organisms: None Reported Past Surgical History: Cardiac Valve Replacement Additional Past Surgical History / Comment(s): Mitral and aortic valve replacement -. Bladder suspension Past Anesthesia/Blood Transfusion Reactions: No Reported Reaction Past Psychological History: Anxiety, Depression Smoking Status: Never smoker Past Alcohol Use History: Occasional Past Drug Use History: None Reported - Past Family History Father Additional Family Medical History / Comment(s): endocarditis, rheumatic fever at age 32 Mother Additional Family Medical History / Comment(s): "embolism at 90" Medications and Allergies Home Medications Medication Instructions Recorded Confirmed Type Fluticasone/Salmeterol [Advair 1 puff INHALATION RT-BID 12/18/16 08/31/19 History 250-50 Diskus] Warfarin [Coumadin] 2.5 mg PO DAILY 11/26/17 08/31/19 History Montelukast [Singulair] 10 mg PO HS 04/03/18 08/31/19 History rOPINIRole HCL [Requip] 0.5 mg PO HS 04/03/18 08/31/19 History Albuterol Inhaler (Bulk) [Ventolin 1 - 2 puff INHALATION RT-Q6H PRN 01/30/19 08/31/19 History Hfa Inhaler] Loratadine [Claritin] 10 mg PO DAILY 01/30/19 08/31/19 History Benzonatate [Tessalon Perles] 100 mg PO BID 08/31/19 08/31/19 History Mirabegron [Myrbetriq] 25 mg PO DAILY 08/31/19 08/31/19 History Sertraline [Zoloft] 25 mg PO HS 08/31/19 08/31/19 History Sertraline [Zoloft] 50 mg PO DAILY 08/31/19 08/31/19 History traZODone HCL 50 mg PO HS 08/31/19 08/31/19 History Allergies Allergy/AdvReac Type Severity Reaction Status Date / Time No Known Allergies Allergy Verified 08/31/19 11:43 Physical Exam Vitals: Vital Signs Temp Pulse Resp BP Pulse Ox 08/31/19 13:00 73 16 135/59 96 08/31/19 12:00 78 17 130/64 95 08/31/19 10:56 97.5 F L 82 18 127/65 97 Intake and Output 0408/31/19 08/31/19 22:59 06:59 14:59 Other: Weight 60.328 kg PHYSICAL EXAMINATION: GENERAL: The patient is alert and oriented x3, not in any acute distress. Thin built elderly female HEENT: Pupils are round and equally reacting to light. EOMI. No scleral icterus. No conjunctival pallor. Normocephalic, atraumatic. No pharyngeal erythema. No thyromegaly. CARDIOVASCULAR: S1 and S2 present. No murmurs, rubs, or gallops. Loud heart sounds PULMONARY: Chest is clear to auscultation, no wheezing or crackles. ABDOMEN: Soft, nontender, nondistended, normoactive bowel sounds. No palpable organomegaly. MUSCULOSKELETAL: No joint swelling or deformity. EXTREMITIES: No cyanosis, clubbing, or pedal edema. NEUROLOGICAL: Gross neurological examination did not reveal any focal deficits. SKIN: No rashes. Results CBC & Chem 7: 08/31/19 11:15 08/31/19 11:15 Labs: Abnormal Lab Results - Last 24 Hours (Table) 08/31/19 08/31/19 08/31/19 Range/Units 11:15 11:15 11:15 Plt Count 120 L (150-450) k/uL PT 13.3 H (9.0-12.0) sec INR 1.3 H (<1.2) BUN 19 H (7-17) mg/dL Glucose 101 H (74-99) mg/dL AST 39 H (14-36) U/L Assessment and Plan Plan: -Shortness of breath etiology is not clear. Patient doesn't appear to have any congestive heart failure although we will repeat an echocardiogram there may be a competent of diastolic dysfunction but clinically patient doesn't appear to be in CHF exacerbation patient had a normal echocardiogram with the EF of 60-65% with concentric left ventricular hypertrophy. This may be secondary to asthma and cough. Asthma. Patient is not on any deepak inhibitors at this time. -History of mitral valve and aortic valve replacement unsure whether it's a mechanical heart valve patient's INR is subtherapeutic will increase the Coumadin until with repeat INR tomorrow. -Rule out acute coronary syndromes: Patient doesn't have any chest pain at this time -History of nephritis secondary to sepsis -Depression -Asthma with possibility of exacerbation patient appears to have chronic mild persistent asthma
--- NOTE | 2019-08-31 16:27 | ECHOF ---
Referral Reason:Valvular HD MEASUREMENTS -------- HEIGHT: 154.9 cm WEIGHT: 60.3 kg BP: 135/59 RVIDd: 2.6 cm (< 3.3) IVSd: 1.3 cm (0.6 - 1.1) LVIDd: 3.7 cm (3.9 - 5.3) LVPWd: 1.2 cm (0.6 - 1.1) IVSs: 1.6 cm LVIDs: 2.4 cm LVPWs: 1.4 cm LA Diam: 3.4 cm (2.7 - 3.8) Ao Diam: 3.0 cm (2.0 - 3.7) AV Cusp: 2.0 cm (1.5 - 2.6) MV E Ruddy: 1.14 m/s MV DecT: 359 ms MV A Ruddy: 1.32 m/s MV E/A Ratio: 0.86 AV maxP.04 mmHg AV meanP.35 mmHg FINDINGS -------- Sinus rhythm. This was a technically adequate study. The left ventricular size is normal. There is mild concentric left ventricular hypertrophy. Overa ll left ventricular systolic function is normal with, an EF between 55 - 60 %. The right ventricle is normal in size. The left atrial size is normal. The right atrial size is normal. Interatrial and interventricular septum intact. Peak/mean gradient across the Aortic Valve is 33.04mmHg / 19.35mmHg. Normally functioning mechanica l prosthetic valve. There is physiologic regurgitation of the prosthetic aortic valve. There is trace to mild mitral regurgitation. Mechanical MVR is well seated. The tricuspid valve appears structurally normal. Mild tricuspid regurgitation present. The pulmonic valve was not well visualized. The aortic root size is normal. Normal inferior vena cava with normal inspiratory collapse consistent with estimated right atrial pre ssure of 5 mmHg. There is no pericardial effusion. CONCLUSIONS -------- 1. There is mild concentric left ventricular hypertrophy. 2. Overall left ventricular systolic function is normal with, an EF between 55 - 60 %. 3. The left atrial size is normal. 4. Peak/mean gradient across the Aortic Valve is 33.04mmHg / 19.35mmHg. 5. Normally functioning mechanical prosthetic valve. 6. There is physiologic regurgitation of the prosthetic aortic valve. 7. There is trace to mild mitral regurgitation. 8. Mechanical MVR is well seated. 9. Mild tricuspid regurgitation present. 10. The pulmonic valve was not well visualized. RESEARCH HYDROLOGIST: Geetha Sousa RDCS
[2019-08-31] MEDS: MONTELUKAST 10 MG TAB PO SCH (19:51)
[2019-08-31] MEDS: SERTRALINE 25 MG TAB PO SCH (19:51)
[2019-08-31] MEDS: BENZONATATE 100 MG CAP PO SCH (19:52)
[2019-08-31] MEDS: traZODone HCL 50 MG TAB PO SCH (23:21)
[2019-09-01 05:36] LABS: Cholesterol 211 mg/dL (<200); HDL Cholesterol 45 mg/dL (40-60); LDL Cholesterol,Calculated 145 mg/dL (0-99); Triglycerides 107 mg/dL (<150)
[2019-09-01] MEDS: SYMBICORT 80-4.5 MCG INHALER INHALATION SCH ×3 (07:29→19:56)
[2019-09-01] MEDS: Mirabegron [Myrbetriq] PO SCH (07:40)
[2019-09-01] MEDS ORDERED: WARFARIN 5 MG TAB PO STA (08:01)
[2019-09-01] MEDS: SERTRALINE 50 MG TAB PO SCH (08:08)
[2019-09-01] MEDS: ENOXAPARIN 60 MG/0.6 ML SYRINGE SQ SCH ×2 (08:08→19:37)
[2019-09-01] MEDS: BENZONATATE 100 MG CAP PO SCH ×2 (08:08→19:37)
[2019-09-01] MEDS: LORATADINE 10 MG TAB PO SCH (08:08)
[2019-09-01] MEDS ORDERED: WARFARIN 2.5 MG TAB PO SCH (09:00)
[2019-09-01] MEDS ORDERED: ASPIRIN 325 MG TAB PO SCH (09:00)
--- NOTE | 2019-09-01 09:55 | CONS ---
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 This lady takes Coumadin. She also has bronchial asthma and otherwise has been healthy. The reason for valve replacement is somewhat unclear, but on reviewing the old chart, there was a concern when she had the valve replaced of endocarditis. She was last here hospitalized with some shortness of breath in 2017 and following that apparently she saw her regulatory agency director by name Dr. Roth in the [facility] and he performed a stress test about a year ago which was unremarkable. She comes in this time with mainly complaints of increasing shortness of breath. She did not have any chest discomfort. She just thought that she had fatigue, lack of energy and has had some shortness of breath with some cough and there was a question of a nodule in the right mid lung. She took a course of Zithromax at home. However, unfortunately her INR even though she is on Coumadin is only 1.3 today. She has no chest pain. Her shortness of breath has improved. She is resting comfortably at the time of my evaluation. PAST MEDICAL HISTORY: 1. Aortic and mitral valve replacement, probably mechanical valves. 2. Bronchial asthma. 3. No evidence of any prior myocardial infarction or CVA. MEDICATIONS: Medications at home include Advair inhaler, albuterol inhaler, Singulair 10 mg daily, Coumadin she takes 3 mg daily and she takes Tessalon Perles, Zoloft, trazodone. ALLERGIES: None. REVIEW OF SYSTEMS: Unremarkable other than above-mentioned facts. Her echocardiogram revealed that both valves are stable. She has an insignificant gradient across the aortic valve. LV function is well preserved. PHYSICAL EXAMINATION: On examination, blood pressure is 128/70, pulse rate is 78 per minute, regular. HEENT: Unremarkable. Fundus was not examined by me. Neck is supple. There is no JVD. I do not hear a carotid bruit. Heart exam reveals S1, S2 with prosthetic valve clicks. Lungs reveal decent air entry. Abdomen is soft. Lower extremities reveal palpable pulses. No edema. Central nervous system is normal. EKG revealed sinus mechanism, slightly prolonged QT, but no acute changes. IMPRESSION: 1. Probable acute bronchitis type picture. 2. No evidence of any chest pain. Her troponins are unremarkable. 3. No evidence of heart failure. 4. Status post mechanical aortic and mitral valve replacement, both of which appears stable on the echo. The patient has a lot of anxiety about coronavirus, but she had a test yesterday which was negative for any a coronavirus antigen. RECOMMENDATIONS: From a cardiac standpoint, I am very concerned that her INR is only 1.3 and this was yesterday. I am recommending Lovenox 60 mg subcu q.12 hours and we will give her 5 mg of Coumadin p.o. today and we will keep her in the hospital until the INR is at least 1.8 or so. I explained this to the patient and advised her that she should be more compliant with her Coumadin usage and keep INR between 2.5 and 3.5. She also had a stress test about a year ago that was unremarkable. No further investigation is necessary. If INR is up to 1.8, we may possibly discharge her tomorrow. She got 5 mg Coumadin now and also Lovenox 60 mg. MMODL / IJN: [id number] /
[2019-09-01] MEDS ORDERED: ALPRAZolam 0.25 MG TAB PO PRN (10:57)
--- NOTE | 2019-09-01 11:19 | P.PN ---
Subjective 79-year-old female was sent in from PCPs office because of cough which is chronic mostly dry cough occasionally productive with clear sputum has been going on for about a month denied any orthopnea proximal nocturnal dyspnea. Patient cough and shortness of breath or exertional. Patient denied any fever chills patient was tested for covid19 here which was negative. Patient's EKG showed normal saline sinus rhythm without any acute ST-T wave changes there is mild QT prolongation all the rest of the workup is negative patient is BNP is only 500 and patient chest x-ray did not show any acute changes patient does have history of asthma used to smoke in the past may have had COPD 2 doesn't use any oxygen at home. Etiology of shortness of breath is not clear can be some cough variant asthma with mild shortness of breath although there is no wheezing. Patient is on medications for cough. Patient had a I aortic valve and mitral valve that was replaced unsure whether it's a mechanical heart valve her INR is only 1.3 and patient is on Coumadin I can't really figure out why patient is on Coumadin unless she has a mechanical heart valve. After extensive review of her chart I still can't find whether patient had a mechanical heart valve. The only abnormality is very minimally elevated troponin of 0.026 , because his of that reason ER physician requested me to admit for monitoring overnight and repeat troponins. Repeat echocardiogram will be obtained 09/01/2019 Patient shortness of breath improved but appears to have cough variant asthma or asthmatic bronchitis, no evidence of heart failure at this time. Although patient's INR is low and patient has mechanical heart valve because of that etiology is recommending bridging and Coumadin dose will be increased will repeat INR tomorrow. Patient is anxious as she is not going home and requesting something for anxiety will give her low-dose of Xanax for now with caution Constitutional: Denied any fatigue denied any fever. Cardio vascular: denied any chest pain, palpitations Gastrointestinal denied any nausea vomiting Pulmonary: Denied any shortness of breath cough Neurologic denied any new focal deficits All inpatient medications were reviewed and appropriate changes in these medications as dictated in the interval history and assessment and plan. Objective - Vital Signs Vital signs: Vital Signs Temp 97.7 F 09/01/19 08:00 Pulse 78 09/01/19 08:00 Resp 18 09/01/19 08:00 BP 125/58 09/01/19 08:00 Pulse Ox 97 09/01/19 08:00 Intake & Output 08/31/19 09/01/19 09/01/19 18:59 06:59 18:59 Intake Total 240 240 Balance 240 240 Weight 60.328 kg 59.5 kg Intake: Oral 240 240 Other: # Voids 2 1 - Exam PHYSICAL EXAMINATION: GENERAL: The patient is alert and oriented x3, not in any acute distress. Thin built elderly female HEENT: Pupils are round and equally reacting to light. EOMI. No scleral icterus. No conjunctival pallor. Normocephalic, atraumatic. No pharyngeal erythema. No thyromegaly. CARDIOVASCULAR: S1 and S2 present. No murmurs, rubs, or gallops. Loud heart sounds PULMONARY: Chest is clear to auscultation, no wheezing or crackles. ABDOMEN: Soft, nontender, nondistended, normoactive bowel sounds. No palpable organomegaly. MUSCULOSKELETAL: No joint swelling or deformity. EXTREMITIES: No cyanosis, clubbing, or pedal edema. NEUROLOGICAL: Gross neurological examination did not reveal any focal deficits. SKIN: No rashes. - Labs CBC & Chem 7: 08/31/19 11:15 08/31/19 11:15 Labs: Abnormal Lab Results - Last 24 Hours (Table) 08/31/19 08/31/19 08/31/19 Range/Units 11:15 11:15 11:15 Plt Count 120 L (150-450) k/uL PT 13.3 H (9.0-12.0) sec INR 1.3 H (<1.2) BUN 19 H (7-17) mg/dL Glucose 101 H (74-99) mg/dL AST 39 H (14-36) U/L Cholesterol (<200) mg/dL LDL Cholesterol, Calc (0-99) mg/dL 08/31/19 Range/Units 11:15 Plt Count (150-450) k/uL PT (9.0-12.0) sec INR (<1.2) BUN (7-17) mg/dL Glucose (74-99) mg/dL AST (14-36) U/L Cholesterol 211 H (<200) mg/dL LDL Cholesterol, Calc 145 H (0-99) mg/dL Assessment and Plan Plan: -Shortness of breath etiology is not clear. Patient doesn't appear to have any congestive heart failure although we will repeat an echocardiogram there may be a competent of diastolic dysfunction but clinically patient doesn't appear to be in CHF exacerbation patient had a normal echocardiogram with the EF of 60-65% with concentric left ventricular hypertrophy. This may be secondary to asthma and coffee secondary to asthmatic bronchitis Patient is not on any deepak inhibitors at this time. -History of mitral valve and aortic valve replacement, patient has a mechanical heart valve and INR is subtherapeutic because of which she is being bridged we'll repeat INR tomorrow increase the dose of Coumadin -Rule out acute coronary syndromes: Patient doesn't have any chest pain at this time -History of nephritis secondary to sepsis -Depression -Asthma with possibility of exacerbation patient appears to have chronic mild persistent asthma
[2019-09-01 14:19] LABS: INR 1.4 (<1.2); Prothrombin Time 13.7 sec (9.0-12.0)
[2019-09-01] MEDS ORDERED: WARFARIN 5 MG TAB PO ONE (18:00)
[2019-09-01] MEDS ORDERED: WARFARIN 3 MG TAB PO SCH (18:00)
[2019-09-01] MEDS: traZODone HCL 50 MG TAB PO SCH (19:37)
[2019-09-01] MEDS: MONTELUKAST 10 MG TAB PO SCH (19:37)
[2019-09-01] MEDS: SERTRALINE 25 MG TAB PO SCH (19:37)
[2019-09-01 19:44] VITALS: TEMP 97.7
[2019-09-02 06:37] LABS: INR 1.7 (<1.2)
[2019-09-02 06:38] LABS: Prothrombin Time 16.9 sec (9.0-12.0)
[2019-09-02] MEDS: SERTRALINE 50 MG TAB PO SCH (08:19)
[2019-09-02] MEDS: BENZONATATE 100 MG CAP PO SCH (08:19)
[2019-09-02] MEDS: ENOXAPARIN 60 MG/0.6 ML SYRINGE SQ SCH (08:19)
[2019-09-02] MEDS: Mirabegron [Myrbetriq] PO SCH (08:20)
[2019-09-02] MEDS: LORATADINE 10 MG TAB PO SCH (08:22)
[2019-09-02] MEDS: SYMBICORT 80-4.5 MCG INHALER INHALATION SCH (08:24)
[2019-09-02 08:30] VITALS: BP 140/62; PULSE 78; RESP 17
[2019-09-02] MEDS ORDERED: WARFARIN 5 MG TAB PO ONE (09:00)
--- NOTE | 2019-09-02 12:51 | PN ---
PROGRESS NOTE Mrs. Maria came in with atypical chest pain, shortness of breath, which has resolved. She has been somewhat noncompliant with Coumadin. INR was 1.3 and she has 2 mechanical valves. I gave her Lovenox for her anticoagulation and also additional Coumadin. INR today is 1.7. I am recommending 5 mg p.o. 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 Vitals are stable. No JVD. S1, S2 heard normally. The prosthetic valve clicks are audible. Short systolic murmur is audible. Lungs revealed decent air entry. Abdomen and lower extremity exam is unchanged. MMODL / IJN: [id number] /
--- NOTE | 2019-09-02 14:51 | P.DS ---
Providers Date of admission: 09/01/19 12:46 Expected date of discharge: 09/02/19 Attending physician: Padma Garland Consults: 08/31/19 12:40 Consult Physician Urgent Consulting Provider: Myra Torres Consult Reason/Comments: exertional dyspnea Do you want consulting provider notified?: Yes Primary care physician: Alfredito Stuart MD Hospital Course: Final diagnosis -Shortness of breath -History of mitral valve and aortic valve replacement, patient has a mechanical heart valve and INR is subtherapeutic -Ruled out acute coronary syndromes -History of nephritis secondary to sepsis -Depression -Asthma with possibility of exacerbation patient appears to have chronic mild persistent asthma Discharge disposition Patient is being discharged in a stable condition with guarded prognosis to home to follow-up with primary care provider along with cardiology in the outpatient setting. She will continue on Coumadin 3.5 mg daily and will need a repeat INR to monitor closely. Prescription was provided. Total time taken was 35 minutes. History of present illness 79-year-old female was sent in from PCPs office because of cough which is chronic mostly dry cough occasionally productive with clear sputum has been going on for about a month denied any orthopnea proximal nocturnal dyspnea. Patient cough and shortness of breath or exertional. Patient denied any fever [place] patient was tested for covid19 here which was negative. Patient's EKG showed normal saline sinus rhythm without any acute ST-T wave changes there is mild QT prolongation all the rest of the workup is negative patient is BNP is only 500 and patient chest x-ray did not show any acute changes patient does have history of asthma used to smoke in the past may have had COPD 2 doesn't use any oxygen at home. Etiology of shortness of breath is not clear can be some cough variant asthma with mild shortness of breath although there is no wheezing. Patient is on medications for cough. Patient had a I aortic valve and mitral valve that was replaced unsure whether it's a mechanical heart valve her INR is only 1.3 and patient is on Coumadin I can't really figure out why patient is on Coumadin unless she has a mechanical heart valve. After extensive review of her chart I still can't find whether patient had a mechanical heart valve. The only abnormality is very minimally elevated troponin of 0.026 , because his of that reason ER physician requested me to admit for monitoring overnight and repeat troponins. Repeat echocardiogram will be obtained 09/01/2019 Patient shortness of breath improved but appears to have cough variant asthma or asthmatic bronchitis, no evidence of heart failure at this time. Although patient's INR is low and patient has mechanical heart valve because of that etiology is recommending bridging and Coumadin dose will be increased will repeat INR tomorrow. Patient is anxious as she is not going home and requesting something for anxiety will give her low-dose of Xanax for now with caution 09/02/2019 Patient's repeat INR is 1.7 and was given a dose of subcu Lovenox today and continues to be very anxious about going home. Patient will be given a pres cription for Coumadin 3.5 mg daily and instructed to follow-up with repeat labs to monitor the INR closely. Patient will need to follow-up with primary care provider along with cardiology in the outpatient setting. Currently no reports of chest pain, shortness of breath, or palpitations. Patient is afebrile. No reports of nausea or vomiting and patient is tolerating diet. On exam vital signs are stable. Temp is 97.7F, pulse is 78, respirations are 17, blood pressure is 140/62, oxygen saturation is 95% on room air. Cardio S1, S2 are present. Respiratory system shows diminished breath sounds at the bases. Abdomen is soft and nontender. Nervous system shows no focal deficits. Please refer to medication reconciliation sheet for a list of medications. Patient Condition at Discharge: Fair Plan - Discharge Summary Discharge Rx Participant: Yes New Discharge Prescriptions: New Warfarin [Coumadin] 1 mg PO DAILY 30 Days #30 tablet Warfarin [Coumadin] 2.5 mg PO DAILY 30 Days #30 tab Continue Fluticasone/Salmeterol [Advair 250-50 Diskus] 1 puff INHALATION RT-BID rOPINIRole HCL [Requip] 0.5 mg PO HS Montelukast [Singulair] 10 mg PO HS Albuterol Inhaler (Bulk) [Ventolin Hfa Inhaler (Bulk)] 1 - 2 puff INHALATION RT-Q6H PRN PRN Reason: Shortness Of Breath Loratadine [Claritin] 10 mg PO DAILY traZODone HCL 50 mg PO HS Sertraline [Zoloft] 50 mg PO DAILY Sertraline [Zoloft] 25 mg PO HS Mirabegron [Myrbetriq] 25 mg PO DAILY Benzonatate [Tessalon Perles] 100 mg PO BID Discontinued Warfarin [Coumadin] 2.5 mg PO DAILY Discharge Medication List Fluticasone/Salmeterol [Advair 250-50 Diskus] 1 puff INHALATION RT-BID 12/18/16 [History] Montelukast [Singulair] 10 mg PO HS 04/03/18 [History] rOPINIRole HCL [Requip] 0.5 mg PO HS 04/03/18 [History] Albuterol Inhaler (Bulk) [Ventolin Hfa Inhaler (Bulk)] 1 - 2 puff INHALATION RT- Q6H PRN 01/30/19 [History] Loratadine [Claritin] 10 mg PO DAILY 01/30/19 [History] Benzonatate [Tessalon Perles] 100 mg PO BID 08/31/19 [History] Mirabegron [Myrbetriq] 25 mg PO DAILY 08/31/19 [History] Sertraline [Zoloft] 25 mg PO HS 08/31/19 [History] Sertraline [Zoloft] 50 mg PO DAILY 08/31/19 [History] traZODone HCL 50 mg PO HS 08/31/19 [History] Warfarin [Coumadin] 1 mg PO DAILY 30 Days #30 tablet 09/02/19 [Rx] Warfarin [Coumadin] 2.5 mg PO DAILY 30 Days #30 tab 09/02/19 [Rx] Follow up Appointment(s)/Referral(s): Alfredito Stuart MD [Primary Care Provider] - 1-2 days Ambulatory/Diagnostic Orders: Prothrombin Time INR [LAB.AMB] Time Frame: 2 Days, Location: None Selected Patient Instructions/Handouts: Warfarin (By mouth), Chest Pain (DC) Activity/Diet/Wound Care/Special Instructions: Activity Limited until follow-up Follow-up with primary care provider upon discharge Continue current diet Continue with Coumadin 3.5 mg daily and start taking tomorrow Repeat labs in 2-3 days to monitor INR Discharge Disposition: HOME SELF-CARE
== END 2019-09-02 12:36 | disposition home or self-care (01) | DRG 203 ==
LOC: EC 10:53 → 3SCARD 12:40 → OBSVTOIN 09-01 12:46
PROVIDERS: ADMIT Hospitalist; ATTEND Hospitalist
DX: J45.31 Mild persistent asthma with (acute) exacerbation (principal); E86.0 Dehydration; F32.9 Major depressive disorder, single episode, unspecified; F41.9 Anxiety disorder, unspecified; R79.89 Other specified abnormal findings of blood chemistry; R01.1 Cardiac murmur, unspecified; Z20.828 Contact with and (suspected) exposure to other viral communicable diseases; Z79.01 Long term (current) use of anticoagulants; Z79.899 Other long term (current) drug therapy; Z87.440 Personal history of urinary (tract) infections; Z86.19 Personal history of other infectious and parasitic diseases; Z95.2 Presence of prosthetic heart valve; Z82.49 Family history of ischemic heart disease and other diseases of the circulatory system; Z91.14 Patient's other noncompliance with medication regimen
CPT/HCPCS: 36415; 71045; 71046; 80053; 80061; 81001; 83605; 83735; 83880; 84443; 84484; 85025; 85379; 85610; 85652; 86140; 87040; 87086; 87635; 93005; 93306; 94640; 96360; 99285

== ENCOUNTER → 2021-02-01 | Outpatient (CLI) | payer MEDICARE, OTHER ==
--- NOTE | 2021-02-04 09:18 | MM ---
Reason for exam: screening (asymptomatic). Last mammogram was performed 1 year and 1 month ago. History: Patient is postmenopausal and has history of other cancer at age 58. Family history of breast cancer in sister at age 60, breast cancer in mother at age 79, breast cancer in paternal aunt at age 40, and breast cancer in maternal aunt. Benign left mammotome panel of the left breast, March 04, 2006. Benign excisional biopsy of the right breast, 1983. Took hormonal contraceptives for 2 years beginning at age 22. Took estrogen for 10 years beginning at age 49. Physical Findings: A clinical breast exam by your physician is recommended on an annual basis and results should be correlated with mammographic findings. MG 3D Screening Mammo W/Cad Bilateral CC and MLO view(s) were taken. Prior study comparison: January 12, 2020, bilateral MG 3d screening mammo w/cad. December 03, 2018, bilateral MG 3d screening mammo w/cad. The breast tissue is heterogeneously dense. This may lower the sensitivity of mammography. Stable benign calcifications. There is no discrete abnormality. No significant changes when compared with prior studies. ASSESSMENT: Benign, BI-RAD 2 RECOMMENDATION: Routine screening mammogram of both breasts in 1 year.
== END | disposition home or self-care (01) ==
LOC: RADMAMWWP 07:55
PROVIDERS: ATTEND Family Medicine
DX: Z12.31 Encounter for screening mammogram for malignant neoplasm of breast (principal); Z80.3 Family history of malignant neoplasm of breast; Z78.0 Asymptomatic menopausal state
CPT/HCPCS: 77063; 77067

== ENCOUNTER → 2021-02-18 | Outpatient (CLI) | payer MEDICARE, OTHER ==
--- NOTE | 2021-02-18 14:56 | XR ---
EXAMINATION TYPE: XR chest 2V DATE OF EXAM: 02/18/2021 COMPARISON: Chest x-ray 08/31/2019 HISTORY: Congestive heart failure, chest pain and shortness of breath TECHNIQUE: Frontal and lateral views of the chest are obtained. FINDINGS: There is no focal air space opacity, pleural effusion, or pneumothorax seen. The cardiac silhouette size is within normal limits. Patient is post median sternotomy. There is hyperinflation of the lungs with flattening the hemidiaphragms, aorta is dense. The osseous structures are intact. IMPRESSION: No acute cardiopulmonary process.
== END | disposition home or self-care (01) ==
LOC: RADXRMAIN 11:27
PROVIDERS: ATTEND Internal Medicine Interventional Cardiology
DX: I50.9 Heart failure, unspecified (principal)
CPT/HCPCS: 71046

== ENCOUNTER → 2021-02-26 | Outpatient (CLI) | payer MEDICARE, OTHER ==
[2021-02-26 20:27] LABS: HCT 44.2 % (37.2-46.3); HGB 14.4 g/dL (12.0-15.0); MCHC 32.6 g/dL (32.0-37.0); MCV 95.1 fL (80.0-97.0); Mean Platelet Volume 12.3 fL (9.5-12.2); Platelet Count 177 X 10*3/uL (140-440); RBC 4.65 X 10*6/uL (4.10-5.20); RDW 13.9 % (11.5-14.5); WBC 5.74 X 10*3/uL (4.50-10.00)
[2021-02-27 08:46] LABS: African American GFR (CKD) 72.7 (60.0-200.0); Anion Gap 17.7 mmol/L (4.00-12.00); BUN/Creat Ratio 22.26 Ratio (12.00-20.00); Blood Urea Nitrogen 19.3 mg/dL (9.0-27.0); Calcium 9.8 mg/dL (8.7-10.3); Carbon Dioxide 22.3 mmol/L (21.6-31.8); Non-African American GFR(CKD) 62.7 (60.0-200.0)
== END | disposition home or self-care (01) ==
LOC: LABWHC1 10:15
PROVIDERS: ATTEND Internal Medicine Interventional Cardiology
DX: I50.9 Heart failure, unspecified (principal)
CPT/HCPCS: 36415; 80048; 85027

== ENCOUNTER 2021-04-26 10:42 | Emergency (ER) | payer MEDICARE, OTHER ==
[2021-04-26 10:53] VITALS: RESP 18; TEMP 97.9
--- NOTE | 2021-04-26 11:58 | XR ---
EXAMINATION TYPE: XR chest 2V DATE OF EXAM: 04/26/2021 COMPARISON: Chest x-ray 02/18/2021 HISTORY: Shortness of breath TECHNIQUE: Frontal and lateral views of the chest are obtained. FINDINGS: Patient is post median sternotomy. There is a spinal curvature. Aorta is dense. Cardiac me diastinal silhouette is stable. No evident airspace disease, pneumothorax, or pleural effusion. There is hyperinflation which can be seen in COPD, coronary artery calcifications are noted. IMPRESSION: No acute cardiopulmonary process.
[2021-04-26 13:12] VITALS: BP 144/57; PULSE 76
--- NOTE | 2021-04-26 13:21 | ED ---
General Adult HPI - General Chief complaint: Upper Respiratory Infection Stated complaint: cough Time Seen by Provider: 04/26/21 12:57 Source: patient, RN notes reviewed Mode of arrival: ambulatory Limitations: no limitations - History of Present Illness Initial comments: Patient is a pleasant 81-year-old female presenting to the emergency Department with cough and nasal congestion. Onset of symptoms was 3-4 days ago. Patient has had some white to clear mucus. No dyspnea. No fevers. Patient is tolerating oral intake. No known recent COVID-19 exposure. Patient does have history of COPD and is on Advair as well as rescue inhaler as needed. - Related Data Home Medications Medication Instructions Recorded Confirmed Fluticasone/Salmeterol [Advair 1 puff INHALATION RT-BID 12/18/16 08/31/19 250-50 Diskus] Montelukast [Singulair] 10 mg PO HS 04/03/18 08/31/19 rOPINIRole HCL [Requip] 0.5 mg PO HS 04/03/18 08/31/19 Albuterol Inhaler (Mhu) [Ventolin 1 - 2 puff INHALATION RT-Q6H PRN 01/30/19 08/31/19 Hfa Inhaler (Mhu)] Loratadine [Claritin] 10 mg PO DAILY 01/30/19 08/31/19 Benzonatate [Tessalon Perles] 100 mg PO BID 08/31/19 08/31/19 Mirabegron [Myrbetriq] 25 mg PO DAILY 08/31/19 08/31/19 Sertraline [Zoloft] 25 mg PO HS 08/31/19 08/31/19 Sertraline [Zoloft] 50 mg PO DAILY 08/31/19 08/31/19 traZODone HCL 50 mg PO HS 08/31/19 08/31/19 Previous Rx's Medication Instructions Recorded Warfarin [Coumadin] 1 mg PO DAILY 30 Days #30 tablet 09/02/19 Warfarin [Coumadin] 2.5 mg PO DAILY 30 Days #30 tab 09/02/19 Azithromycin [Zithromax Z-pack (6 250 mg PO DIRECTED #6 tab 04/26/21 tabs)] Allergies Allergy/AdvReac Type Severity Reaction Status Date / Time No Known Allergies Allergy Verified 04/26/21 10:48 Review of Systems ROS Statement: Those systems with pertinent positive or pertinent negative responses have been documented in the HPI. ROS Other: All systems not noted in ROS Statement are negative. Constitutional: Denies: fever Eyes: Denies: eye pain ENT: Reports: congestion. Denies: ear pain Respiratory: Reports: as per HPI, cough. Denies: dyspnea Cardiovascular: Denies: chest pain Endocrine: Denies: fatigue Gastrointestinal: Denies: abdominal pain Genitourinary: Denies: dysuria Musculoskeletal: Denies: back pain Skin: Denies: rash Neurological: Denies: weakness Past Medical History Past Medical History: Asthma, COPD Additional Past Medical History / Comment(s): Bacterial endocarditis s/p tooth abscess, subdural hematoma, UTI History of Any Multi-Drug Resistant Organisms: None Reported Past Surgical History: Cardiac Valve Replacement Additional Past Surgical History / Comment(s): Mitral and aortic valve replacement -. Bladder suspension Past Anesthesia/Blood Transfusion Reactions: No Reported Reaction Past Psychological History: Anxiety, Depression Smoking Status: Former smoker Past Alcohol Use History: Daily Past Drug Use History: None Reported - Past Family History Father Additional Family Medical History / Comment(s): endocarditis, rheumatic fever at age 32 Mother Additional Family Medical History / Comment(s): "embolism at 90" General Exam Limitations: no limitations General appearance: alert, in no apparent distress Head exam: Present: normocephalic Eye exam: Present: normal appearance ENT exam: Present: normal oropharynx, other (Tenderness over frontal and ethmoid sinuses) Neck exam: Present: normal inspection Respiratory exam: Present: normal lung sounds bilaterally Cardiovascular Exam: Present: regular rate, normal rhythm GI/Abdominal exam: Present: soft. Absent: tenderness Extremities exam: Present: normal inspection. Absent: pedal edema, calf tenderness Neurological exam: Present: alert Psychiatric exam: Present: normal affect, normal mood Skin exam: Present: normal color Course Vital Signs 04/26/21 04/26/21 04/26/21 10:48 13:00 13:12 Temperature 97.9 F Pulse Rate 82 76 Respiratory 18 18 18 Rate Blood Pressure 147/62 144/57 O2 Sat by Pulse 95 97 Oximetry EKG Findings - EKG Comments: EKG Findings:: Normal sinus rhythm rate 80. MN 126. QRS 84. QT 406. QTc 468. Normal axis. Normal QRS. No acute ST change. Medical Decision Making - Medical Decision Making Patient is worried about sinus infection and does request antibiotics for this. - Lab Data Lab Results 04/26/21 Range/Units 10:55 Coronavirus (PCR) Not Detected (Not Detectd) - Radiology Data Radiology results: image reviewed (Chest x-ray shows no acute process) Disposition Clinical Impression: Sinusitis, Bronchitis Disposition: HOME SELF-CARE Condition: Stable Instructions (If sedation given, give patient instructions): Sinusitis (ED), Acute Bronchitis (ED) Additional Instructions: Prescription sent to pharmacy. Please follow-up with primary care physician in the next day or 2 for recheck. Return for difficulty breathing, fevers, worsening or changing symptoms or other concerns. Prescriptions: Azithromycin [Zithromax Z-pack (6 tabs)] 250 mg PO DIRECTED #6 tab Is patient prescribed a controlled substance at d/c from ED?: No Referrals: Job Cheung III, MD [Primary Care Provider] - 1-2 days Time of Disposition: 13:20
== END 2021-04-26 13:42 | disposition home or self-care (01) ==
LOC: EC 10:42
DX: J32.9 Chronic sinusitis, unspecified (principal); J40 Bronchitis, not specified as acute or chronic; F41.9 Anxiety disorder, unspecified; F32.A Depression, unspecified; Z87.891 Personal history of nicotine dependence; Z72.89 Other problems related to lifestyle; Z79.51 Long term (current) use of inhaled steroids
CPT/HCPCS: 71046; 87635; 93005; 99284

== ENCOUNTER 2021-06-28 08:42 | Inpatient (IN) | payer MEDICARE, OTHER ==
[2021-06-28] MEDS ORDERED: SODIUM CHLORIDE 0.9% 500 ML 500 ML IV STA (09:07)
--- NOTE | 2021-06-28 09:10 | ED ---
General Adult HPI - General Chief complaint: Upper Respiratory Infection Stated complaint: COPD/Poss UTI/Cold Symptoms Time Seen by Provider: 06/28/21 08:45 Source: patient, RN notes reviewed, old records reviewed Mode of arrival: ambulatory Limitations: no limitations - History of Present Illness Initial comments: This is an 81-year-old female who presents emergency Department complaining that she has an upper respiratory infection as well as feels dehydrated. Patient states she started having a dry hacking cough about 4 weeks ago. Patient states in the last week she feels that she's dehydrated has to continue to drink a lot of fluids. Patient states the cough continues she's does not feel short of breath. Patient denies any chest pain or palpitations. Patient complains of a mild headache being dehydrated and having a sore throat. Patient denies any numbness or weakness. Patient denies any abdominal pain patient denies nausea vomiting diarrhea. - Related Data Home Medications Medication Instructions Recorded Confirmed Fluticasone/Salmeterol [Advair 1 puff INHALATION RT-BID 12/18/16 06/28/21 250-50 Diskus] Montelukast [Singulair] 10 mg PO HS 04/03/18 06/28/21 rOPINIRole HCL [Requip] 0.5 mg PO HS 04/03/18 06/28/21 Mirabegron [Myrbetriq] 25 mg PO DAILY 08/31/19 06/28/21 Sertraline [Zoloft] 25 mg PO HS 08/31/19 06/28/21 Sertraline [Zoloft] 50 mg PO DAILY 08/31/19 06/28/21 Acetaminophen Tab [Tylenol] 325 - 650 mg PO Q4H PRN 06/28/21 06/28/21 Albuterol Sulfate [Ventolin HFA] 1 - 2 puff INHALATION RT-Q6H PRN 06/28/21 06/28/21 Omeprazole [PriLOSEC] 20 mg PO AC-BID 06/28/21 06/28/21 Warfarin [Coumadin] 2.5 mg PO DIRECTED 06/28/21 06/28/21 Zolpidem [Ambien] 10 mg PO HS PRN 06/28/21 06/28/21 Allergies Allergy/AdvReac Type Severity Reaction Status Date / Time No Known Allergies Allergy Verified 06/28/21 10:18 Review of Systems ROS Statement: Those systems with pertinent positive or pertinent negative responses have been documented in the HPI. ROS Other: All systems not noted in ROS Statement are negative. Past Medical History Past Medical History: Asthma, COPD Additional Past Medical History / Comment(s): Bacterial endocarditis s/p tooth abscess, subdural hematoma, UTI History of Any Multi-Drug Resistant Organisms: None Reported Past Surgical History: Cardiac Valve Replacement Additional Past Surgical History / Comment(s): Mitral and aortic valve replacement -. Bladder suspension Past Anesthesia/Blood Transfusion Reactions: No Reported Reaction Past Psychological History: Anxiety, Depression Smoking Status: Former smoker Past Alcohol Use History: Daily Past Drug Use History: None Reported - Past Family History Father Additional Family Medical History / Comment(s): endocarditis, rheumatic fever at age 32 Mother Additional Family Medical History / Comment(s): "embolism at 90" General Exam - General Exam Comments Initial Comments: GENERAL: Patient is well-developed and well-nourished. Patient is nontoxic and well- hydrated and is in mild distress. ENT: Neck is soft and supple. No significant lymphadenopathy is noted. Oropharynx is clear. Moist mucous membranes. Neck has full range of motion without elicit ing any pain. EYES: The sclera were anicteric and conjunctiva were pink and moist. Extraocular m ovements were intact and pupils were equal round and reactive to light. Eyelids were unremarkable. PULMONARY: Unlabored respirations. Good breath sounds bilaterally. No audible rales rhonchi or wheezing was noted. CARDIOVASCULAR: Patient's heart rate is about 150 beats a minute and irregular ABDOMEN: Soft and nontender with normal bowel sounds. SKIN: Skin is clear with no lesions or rashes and otherwise unremarkable. NEUROLOGIC: Patient is alert and oriented x3. Cranial nerves II through XII are grossly intact. Motor and sensory are also intact. Normal speech, volume and content. Symmetrical smile. MUSCULOSKELETAL: Normal extremities with adequate strength and full range of motion. No lower extremity swelling or edema. No calf tenderness. LYMPHATICS: No significant lymphadenopathy is noted PSYCHIATRIC: Normal psychiatric evaluation. Limitations: no limitations Course Vital Signs 06/28/21 06/28/21 06/28/21 08:47 09:01 09:26 Temperature 97.6 F Pulse Rate 60 138 H Respiratory 22 18 18 Rate Blood Pressure 107/68 101/80 O2 Sat by Pulse 99 95 Oximetry 06/28/21 06/28/21 10:26 11:43 Temperature Pulse Rate 141 H 151 H Respiratory 18 20 Rate Blood Pressure 100/79 98/75 O2 Sat by Pulse 96 98 Oximetry Medical Decision Making - Medical Decision Making EKG shows atrial for fibrillation with rapid ventricular response at 147 bpm QRS is 92 QT interval 300 QTC is 384. Patient's EKG shows no ST segment elevation or depression. Patient states she's had no history of atrial fibrillation. Patient was started on Cardizem for the A. fib with rapid ventricular response. Patient's x-ray showed some mild congestion. I spoke with Dr. rushing he agreed to admit the patient admitted the patient wrote admitting orders. I continued the Cardizem and hospital I consulted cardiology - Lab Data Result diagrams: 06/28/21 09:20 06/28/21 09:20 Lab Results 06/28/21 06/28/21 06/28/21 Range/Units 09:20 09:20 09:20 WBC 6.3 (3.8-10.6) k/uL RBC 3.39 L (3.80-5.40) m/uL Hgb 11.2 L (11.4-16.0) gm/dL Hct 32.6 L (34.0-46.0) % MCV 96.1 (80.0-100.0) fL MCH 33.1 (25.0-35.0) pg MCHC 34.4 (31.0-37.0) g/dL RDW 14.3 (11.5-15.5) % Plt Count 268 (150-450) k/uL MPV 8.1 Neutrophils % 81 % Lymphocytes % 11 % Monocytes % 5 % Eosinophils % 2 % Basophils % 0 % Neutrophils # 5.1 (1.3-7.7) k/uL Lymphocytes # 0.7 L (1.0-4.8) k/uL Monocytes # 0.3 (0-1.0) k/uL Eosinophils # 0.1 (0-0.7) k/uL Basophils # 0.0 (0-0.2) k/uL PT 43.7 H (9.0-12.0) sec INR 4.4 H (<1.2) APTT 48.0 H (22.0-30.0) sec Sodium 134 L (137-145) mmol/L Potassium 4.5 (3.5-5.1) mmol/L Chloride 107 (98-107) mmol/L Carbon Dioxide 21 L (22-30) mmol/L Anion Gap 6 mmol/L BUN 13 (7-17) mg/dL Creatinine 0.64 (0.52-1.04) mg/dL Est GFR (CKD-EPI)AfAm >90 (>60 ml/min/1.73 sqM) Est GFR (CKD-EPI)NonAf 83 (>60 ml/min/1.73 sqM) Glucose 115 H (74-99) mg/dL Calcium 8.5 (8.4-10.2) mg/dL Magnesium 2.2 (1.6-2.3) mg/dL Total Bilirubin 1.0 (0.2-1.3) mg/dL AST 26 (14-36) U/L ALT 20 (4-34) U/L Alkaline Phosphatase 100 (38-126) U/L Troponin I (0.000-0.034) ng/mL NT-Pro-B Natriuret Pep pg/mL Total Protein 6.4 (6.3-8.2) g/dL Albumin 3.0 L (3.5-5.0) g/dL Coronavirus (PCR) (Not Detectd) 06/28/21 06/28/21 06/28/21 Range/Units 09:20 09:20 09:20 WBC (3.8-10.6) k/uL RBC (3.80-5.40) m/uL Hgb (11.4-16.0) gm/dL Hct (34.0-46.0) % MCV (80.0-100.0) fL MCH (25.0-35.0) pg MCHC (31.0-37.0) g/dL RDW (11.5-15.5) % Plt Count (150-450) k/uL MPV Neutrophils % % Lymphocytes % % Monocytes % % Eosinophils % % Basophils % % Neutrophils # (1.3-7.7) k/uL Lymphocytes # (1.0-4.8) k/uL Monocytes # (0-1.0) k/uL Eosinophils # (0-0.7) k/uL Basophils # (0-0.2) k/uL PT (9.0-12.0) sec INR (<1.2) APTT (22.0-30.0) sec Sodium (137-145) mmol/L Potassium (3.5-5.1) mmol/L Chloride (98-107) mmol/L Carbon Dioxide (22-30) mmol/L Anion Gap mmol/L BUN (7-17) mg/dL Creatinine (0.52-1.04) mg/dL Est GFR (CKD-EPI)AfAm (>60 ml/min/1.73 sqM) Est GFR (CKD-EPI)NonAf (>60 ml/min/1.73 sqM) Glucose (74-99) mg/dL Calcium (8.4-10.2) mg/dL Magnesium (1.6-2.3) mg/dL Total Bilirubin (0.2-1.3) mg/dL AST (14-36) U/L ALT (4-34) U/L Alkaline Phosphatase (38-126) U/L Troponin I 0.075 H* (0.000-0.034) ng/mL NT-Pro-B Natriuret Pep 63314 pg/mL Total Protein (6.3-8.2) g/dL Albumin (3.5-5.0) g/dL Coronavirus (PCR) Not Detected (Not Detectd) Critical Care Time Critical Care Time: Yes Total Critical Care Time: 35 Disposition Clinical Impression: Atrial fibrillation with rapid ventricular response Disposition: ADMITTED IP TO THIS HOSP Referrals: Boaz Rushing MD [Primary Care Provider] - 1-2 days Time of Disposition: 13:43
[2021-06-28 09:34] LABS: Basophils % (A) 0 %; Eosinophils # (A) 0.1 k/uL (0-0.7); Eosinophils % (A) 2 %; HCT 32.6 % (34.0-46.0); HGB 11.2 gm/dL (11.4-16.0); Lymphocytes # (A) 0.7 k/uL (1.0-4.8); Lymphocytes % (A) 11 %; MCH 33.1 pg (25.0-35.0); MCHC 34.4 g/dL (31.0-37.0); MCV 96.1 fL (80.0-100.0); Mean Platelet Volume 8.1; Monocytes # (A) 0.3 k/uL (0-1.0); Monocytes % (A) 5 %; Neutrophils # (A) 5.1 k/uL (1.3-7.7); Neutrophils % (A) 81 %; Platelet Count 268 k/uL (150-450); RBC 3.39 m/uL (3.80-5.40); RDW 14.3 % (11.5-15.5); WBC 6.3 k/uL (3.8-10.6)
[2021-06-28] MEDS ORDERED: HEPARIN SODIUM 1,000 UN/ML (10ML VL) IV ONE (09:34)
--- NOTE | 2021-06-28 09:43 | XR ---
EXAMINATION TYPE: XR chest 2V DATE OF EXAM: 06/28/2021 COMPARISON: 04/26/2021 HISTORY: Shortness of breath TECHNIQUE: Frontal and lateral views of the chest are obtained. FINDINGS: Scattered senescent parenchymal changes noted. Hyperinflation compatible with COPD. Increased basilar and perihilar interstitial markings may reflect developing infiltrate. Additional p ossibility would be that of borderline congestive failure as there does appear to be a small pleural effusion on the lateral projection. Correlate clinically. Heart size is mildly enlarged. Mediastinal structures are stable and grossly unremarkable. No evidence for hilar prominence. Degenerative changes dorsal spine. IMPRESSION: 1. Increased basilar and perihilar interstitial markings may reflect developing infiltrate. Additiona l possibility would be that of borderline congestive failure as there does appear to be a small pleur al effusion on the lateral projection. Correlate clinically.
[2021-06-28 09:45] LABS: INR 4.4 (<1.2); Prothrombin Time 43.7 sec (9.0-12.0)
[2021-06-28 09:50] LABS: ALT 20 U/L (4-34); AST 26 U/L (14-36); African American GFR (CKD) >90 (>60 ml/min/1.73 sqM); Alkaline Phosphatase 100 U/L (38-126); Anion Gap 6 mmol/L; Blood Urea Nitrogen 13 mg/dL (7-17); Calcium 8.5 mg/dL (8.4-10.2); Carbon Dioxide 21 mmol/L (22-30); Chloride 107 mmol/L (98-107); Glucose 115 mg/dL (74-99); Magnesium 2.2 mg/dL (1.6-2.3); Non-African American GFR(CKD) 83 (>60 ml/min/1.73 sqM); Potassium 4.5 mmol/L (3.5-5.1); Sodium 134 mmol/L (137-145); Total Protein 6.4 g/dL (6.3-8.2)
[2021-06-28] MEDS: DILTIAZEM 125 MG in SODIUM CHLORIDE 0.9% 100 ML IV SCH (10:15)
[2021-06-28] MEDS: HEPARIN SOD,PORK IN 0.45% NACL 25,000 UNIT in 0.45% NACL 1 250ML.BAG IV SCH (10:23)
[2021-06-28] MEDS ORDERED: NITROGLYCERIN SL TABS 0.4 MG TAB SUBLINGUAL PRN (13:43)
[2021-06-28 14:37] LABS: Appearance,Urine Clear (Clear); Bilirubin,Urine Negative (Negative); Blood,Urine Negative (Negative); Color,Urine Yellow; Glucose,Urine (UA) Negative (Negative); Ketones,Urine Negative (Negative); Leukocyte Esterase,Urine Negative (Negative); Nitrite,Urine Negative (Negative); Protein,Urine Negative (Negative); Specific Gravity,Urine 1.008 (1.001-1.035)
[2021-06-28] MEDS ORDERED: DILTIAZEM DRIP BOLUS FROM BAG 1 MG SOLN IV ONE (16:12)
[2021-06-28] MEDS ORDERED: ZOLPIDEM 10 MG TAB PO PRN (18:23)
[2021-06-28] MEDS ORDERED: WARFARIN 2.5 MG TAB PO SCH (18:30)
[2021-06-28] MEDS ORDERED: WARFARIN 0.5 MG TAB PO ONE (19:00)
[2021-06-28] MEDS: ACETAMINOPHEN TAB 325 MG TAB PO PRN (20:14)
[2021-06-28] MEDS: SERTRALINE 25 MG TAB PO SCH (20:14)
[2021-06-28] MEDS: METOPROLOL TARTRATE 25 MG TAB PO SCH (20:14)
[2021-06-28] MEDS: MONTELUKAST 10 MG TAB PO SCH (20:14)
[2021-06-28] MEDS: SYMBICORT 80-4.5 MCG INHALER INHALATION SCH (20:19)
[2021-06-28] MEDS: AMIODARONE 450 MG in DEXTROSE 5% IN WATER 250 ML IV SCH ×2 (21:30)
[2021-06-29] MEDS: PANTOPRAZOLE 40 MG TABLET PO SCH (06:20)
[2021-06-29] MEDS: SYMBICORT 80-4.5 MCG INHALER INHALATION SCH ×2 (08:02→19:30)
[2021-06-29] MEDS: METOPROLOL TARTRATE 25 MG TAB PO SCH ×2 (09:17→20:15)
[2021-06-29] MEDS: SERTRALINE 50 MG TAB PO SCH (09:17)
[2021-06-29] MEDS: ASPIRIN 325 MG TAB PO SCH (09:17)
[2021-06-29] MEDS: NON FORMULARY DRUG (Mirabegron [Myrbetriq] 25 MG Tab.Er.24h) PO SCH (09:18)
[2021-06-29 10:00] LABS: INR 4.1 (<1.2); Prothrombin Time 41.1 sec (9.0-12.0)
--- NOTE | 2021-06-29 10:07 | P.HPIM ---
History of Present Illness Chief Complaint: Shortness of breath Kristin is an 81-year-old white female well-known to me. I've been seeing in the office in several visits for acute COPD. She had came in the emergency room yesterday for increased shortness of breath and cough. 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 In the ER she was found to have a significantly elevated heart rate of 150 and EKG showed atrial fibrillation. She is currently resting comfortably on Cardizem drip. She remains afebrile, heart rate is variable area blood pressure remained controlled. There are no laboratory studies pending this revealed an INR of 4.1. Chemistries and CBC from yesterday were essentially normal. A cardiology consult is pending. Robert she denies any chest pains, pressures, shortness breath at rest. She does have some shortness breath with exertion. Denies any nausea or vomiting no dysuria hematuria hematochezia. She has not had a bowel movement today. Past Medical History Past Medical History: Asthma, COPD Additional Past Medical History / Comment(s): Bacterial endocarditis s/p tooth abscess, subdural hematoma, UTI History of Any Multi-Drug Resistant Organisms: None Reported Past Surgical History: Cardiac Valve Replacement Additional Past Surgical History / Comment(s): Mitral and aortic valve replacement in 1991. Bladder suspension Past Anesthesia/Blood Transfusion Reactions: No Reported Reaction Past Psychological History: Anxiety, Depression Smoking Status: Former smoker Past Alcohol Use History: Daily Past Drug Use History: None Reported Additional Drug Use History / Comment(s): Drinks usually about one beer a day. Quit smoking in 1998. - Past Family History Father Additional Family Medical History / Comment(s): endocarditis, rheumatic fever at age 32 Mother Additional Family Medical History / Comment(s): "embolism at 90" Medications and Allergies Home Medications Medication Instructions Recorded Confirmed Type Fluticasone/Salmeterol [Advair 1 puff INHALATION RT-BID 12/18/16 06/28/21 History 250-50 Diskus] Montelukast [Singulair] 10 mg PO HS 04/03/18 06/28/21 History rOPINIRole HCL [Requip] 0.5 mg PO HS 04/03/18 06/28/21 History Mirabegron [Myrbetriq] 25 mg PO DAILY 08/31/19 06/28/21 History Sertraline [Zoloft] 25 mg PO HS 08/31/19 06/28/21 History Sertraline [Zoloft] 50 mg PO DAILY 08/31/19 06/28/21 History Acetaminophen Tab [Tylenol] 325 - 650 mg PO Q4H PRN 06/28/21 06/28/21 History Albuterol Sulfate [Ventolin HFA] 1 - 2 puff INHALATION RT-Q6H PRN 06/28/21 06/28/21 History Omeprazole [PriLOSEC] 20 mg PO AC-BID 06/28/21 06/28/21 History Warfarin [Coumadin] 2.5 mg PO DIRECTED 06/28/21 06/28/21 History Zolpidem [Ambien] 10 mg PO HS PRN 06/28/21 06/28/21 History Allergies Allergy/AdvReac Type Severity Reaction Status Date / Time No Known Allergies Allergy Verified 06/28/21 10:18 Physical Exam Vitals: Vital Signs Temp Pulse Pulse Resp BP BP Pulse Ox 06/29/21 07:45 97.8 F 113 H 20 101/60 95 06/29/21 04:00 97.2 F L 62 20 100/72 95 06/29/21 01:47 16 06/28/21 23:00 98 F 60 16 97/53 94 L 06/28/21 20:00 18 06/28/21 19:57 97.5 F L 131 H 18 116/75 96 06/28/21 15:58 97.7 F 120 H 20 113/72 96 06/28/21 15:41 97.9 F 129 H 97 06/28/21 15:23 131 H 18 106/56 97 06/28/21 14:00 144 H 18 110/63 96 06/28/21 13:00 121 H 18 94/73 96 06/28/21 11:43 151 H 20 98/75 98 06/28/21 10:26 141 H 18 100/79 96 Intake and Output 06/28/21 06/29/21 06/29/21 22:59 06:59 14:59 Intake Total 29.75 Balance 29.75 Intake: Intake, IV Titration 29.75 Amount Diltiazem 125 mg In 29.75 Sodium Chloride 0.9% 100 ml @ 5 MG/HR 5 mls/hr IV .Q24H [facility] Rx#:[id number] Other: Weight 60.781 kg 62.7 kg GENERAL: Well-appearing, well-nourished female and in no acute distress. HEAD: Atraumatic, normocephalic. EYES: Pupils equal round and reactive to light, extraocular movements intact, sclera anicteric, conjunctiva are normal. ENT:nares patent, oropharynx clear without exudates. Moist mucous membranes. NECK: Normal range of motion, supple without lymphadenopathy or JVD, no thyromegaly LUNGS: Breath sounds coarse to auscultation bilaterally and equal. No wheezes rales or rhonchi. HEART: Irregular rate and irregular rhythm about 110 bpm at this time is 1/6 systolic murmur is noted from her mechanical heart valves. No rubs or gallops.S1S2 Normal ABDOMEN: Soft, nontender, normoactive bowel sounds. No guarding, no rebound. No masses appreciated. EXTREMITIES: Normal range of motion, no pitting or edema. No clubbing or cyanosis. NEUROLOGICAL: Cranial nerves II through XII grossly intact. Normal speech, normal gait. PSYCH: Normal mood, normal affect. SKIN: Warm, Dry, normal turgor, no rashes or lesions noted. Results CBC & Chem 7: 06/28/21 09:20 06/28/21 09:20 Labs: Abnormal Lab Results - Last 24 Hours (Table) 06/28/21 06/28/21 06/28/21 Range/Units 09:20 15:19 15:19 PT (9.0-12.0) sec INR (<1.2) APTT 49.5 H (22.0-30.0) sec Troponin I 0.075 H* 0.071 H* (0.000-0.034) ng/mL 06/28/21 06/29/21 Range/Units 18:21 08:53 PT 41.1 H (9.0-12.0) sec INR 4.1 H (<1.2) APTT (22.0-30.0) sec Troponin I 0.075 H* (0.000-0.034) ng/mL Chest x-ray: report reviewed Thrombosis Risk Factor Assmnt - DVT/VTE Prophylaxis DVT/VTE Prophylaxis: Pharmacologic Prophylaxis ordered - Choose All That Apply Each Factor Represents 1 point: Abnormal pulmonary function (COPD) Each Risk Factor Represents 3 Points: Age 75 years or older Thrombosis Risk Factor Assessment Total Risk Factor Score: 4 Thrombosis Risk Factor Assessment Level: Moderate Risk Assessment and Plan (1) Acute exacerbation of chronic obstructive pulmonary disease (COPD) Current Visit: Yes Status: Acute Code(s): J44.1 - CHRONIC OBSTRUCTIVE PULMONARY DISEASE W (ACUTE) EXACERBATION SNOMED Code(s): 962780789 (2) correction current use of anticoagulant therapy Current Visit: Yes Status: Acute Code(s): Z79.01 - CORRECTION (CURRENT) USE OF ANTICOAGULANTS SNOMED Code(s): 085084705 (3) H/O heart valve replacement with mechanical valve Current Visit: Yes Status: Acute Code(s): Z95.2 - PRESENCE OF PROSTHETIC HEART VALVE SNOMED Code(s): 46671723122426 (4) Atrial fibrillation with rapid ventricular response Current Visit: Yes Status: Acute Code(s): I48.91 - UNSPECIFIED ATRIAL FIBRILLATION SNOMED Code(s): 065472016220883 (5) Weakness Current Visit: No Status: Acute Code(s): R53.1 - WEAKNESS SNOMED Code(s): 56957525 Plan: Her home medications are being restarted, we'll consult pulmonology. We'll wait on the recommendations cardiology. She'll remain on her heparin drip and Cardizem at this time. Based on her x-ray, I will put her on prophylactic antibiotics at this time. Continue on her budesonide updrafts shortness of breath. Repeat labs in a.m., reevaluated the next 24 hours.
[2021-06-29] MEDS ORDERED: FUROSEMIDE 10 MG/ML 2 ML VIAL IV SCH (10:30)
[2021-06-29] MEDS: HEPARIN SOD,PORK IN 0.45% NACL 25,000 UNIT in 0.45% NACL 1 250ML.BAG IV SCH (11:02)
[2021-06-29] MEDS: PIPERACILLIN-TAZOBACTAM 3.375 GM in SODIUM CHLORIDE 0.9% 100 ML IVPB SCH ×3 (11:13→23:57)
[2021-06-29 11:55] LABS: Chol/HDL Ratio 4.68 Ratio; LDL Cholesterol,Calculated 87.8 mg/dL (0.0-131.0); VLDL Calculation 16.78 mg/dL (5.00-40.00)
--- NOTE | 2021-06-29 12:47 | P.CNPUL ---
History of Present Illness Consult date: 06/29/21 Requesting physician: Boaz Chaudhary Reason for consult: dyspnea, COPD Chief complaint: Shortness of breath and cough. History of present illness: This is an 81-year-old female, familiar to my service, patient was last seen in my office back in March of 2021, and she has mostly mild intermittent asthma, maintained on bronchodilators, she is also known to have history of chronic dyspnea on exertion, history of subdural hematoma/traumatic in nature. Patient is normally maintained on Advair, Singulair, and albuterol. Patient was seen in the ER yesterday mostly with 2 weeks history of shortness of breath, cough with whitish phlegm, no fever, no chills, no hemoptysis. Patient is known to have history of valvular heart disease, and she had previous mitral and aortic valve replacement in 1991. Patient is maintained on Coumadin, she had no previous history of atrial fibrillation. In the ER, she was found to have atrial fibrillation with RVR, rate of 150, her chest x-ray showed mild interstitial edema, and pulmonary vascular congestion, patient was admitted, started on Cardizem drip, and I was asked to see her on consultation. Patient also describes symptoms of burning sensation on urination. She is now empirically on Zosyn. She is also on Cardizem drip, patient tested negative for COVID-19 infection. Her urinalysis is basically unremarkable, and her troponin is elevated at 0.075. No evidence of leukocytosis. Her INR is supratherapeutic at 4.1. Electrolytes and renal profile are normal. BNP level was noted to be elevated at 10,100. Pro-calcitonin is pending. Review of Systems CONSTITUTIONAL: Feels generally weak otherwise no fever, she does have occasional chills. HEENT: Negative. CARDIOVASCULAR: Denies any palpitations or chest pain. PULMONARY: As noted in HPI, productive cough with whitish phlegm, and shortness of breath. GASTROINTESTINAL: Negative. NEUROLOGICAL: No headaches, no weakness, no numbness. HEMATOLOGICAL: Denies any bleeding or petechiae. GENITOURINARY: Burning sensation on urination. MUSCULOSKELETAL/RHEUMATOLOGICAL: Denies any joint pain, swelling, or any muscle pain. ENDOCRINE: Denies any polyuria or polydipsia. Past Medical History Past Medical History: Asthma, COPD Additional Past Medical History / Comment(s): Bacterial endocarditis s/p tooth abscess, subdural hematoma, UTI History of Any Multi-Drug Resistant Organisms: None Reported Past Surgical History: Cardiac Valve Replacement Additional Past Surgical History / Comment(s): Mitral and aortic valve replacement in 1991. Bladder suspension Past Anesthesia/Blood Transfusion Reactions: No Reported Reaction Past Psychological History: Anxiety, Depression Smoking Status: Former smoker Past Alcohol Use History: Daily Past Drug Use History: None Reported Additional Drug Use History / Comment(s): Drinks usually about one beer a day. Quit smoking in 1998. - Past Family History Father Additional Family Medical History / Comment(s): endocarditis, rheumatic fever at age 32 Mother Additional Family Medical History / Comment(s): "embolism at 90" Medications and Allergies Home Medications Medication Instructions Recorded Confirmed Type Fluticasone/Salmeterol [Advair 1 puff INHALATION RT-BID 12/18/16 06/28/21 History 250-50 Diskus] Montelukast [Singulair] 10 mg PO HS 04/03/18 06/28/21 History rOPINIRole HCL [Requip] 0.5 mg PO HS 04/03/18 06/28/21 History Mirabegron [Myrbetriq] 25 mg PO DAILY 08/31/19 06/28/21 History Sertraline [Zoloft] 25 mg PO HS 08/31/19 06/28/21 History Sertraline [Zoloft] 50 mg PO DAILY 08/31/19 06/28/21 History Acetaminophen Tab [Tylenol] 325 - 650 mg PO Q4H PRN 06/28/21 06/28/21 History Albuterol Sulfate [Ventolin HFA] 1 - 2 puff INHALATION RT-Q6H PRN 06/28/21 06/28/21 History Omeprazole [PriLOSEC] 20 mg PO AC-BID 06/28/21 06/28/21 History Warfarin [Coumadin] 2.5 mg PO DIRECTED 06/28/21 06/28/21 History Zolpidem [Ambien] 10 mg PO HS PRN 06/28/21 06/28/21 History Allergies Allergy/AdvReac Type Severity Reaction Status Date / Time No Known Allergies Allergy Verified 06/28/21 10:18 Physical Exam Vitals: Vital Signs Temp Pulse Pulse Resp BP BP Pulse Ox 06/29/21 07:45 97.8 F 113 H 20 101/60 95 06/29/21 04:00 97.2 F L 62 20 100/72 95 06/29/21 01:47 16 06/28/21 23:00 98 F 60 16 97/53 94 L 06/28/21 20:00 18 06/28/21 19:57 97.5 F L 131 H 18 116/75 96 06/28/21 15:58 97.7 F 120 H 20 113/72 96 06/28/21 15:41 97.9 F 129 H 97 06/28/21 15:23 131 H 18 106/56 97 06/28/21 14:00 144 H 18 110/63 96 06/28/21 13:00 121 H 18 94/73 96 Intake and Output 06/28/21 06/29/21 06/29/21 22:59 06:59 14:59 Intake Total 29.75 Balance 29.75 Intake: Intake, IV Titration 29.75 Amount Diltiazem 125 mg In 29.75 Sodium Chloride 0.9% 100 ml @ 5 MG/HR 5 mls/hr IV .Q24H [facility] Rx#:[id number] Other: Weight 60.781 kg 62.7 kg Physical Exam: Revealed 81-year-old white female, in no distress, on room air, O2 sats is 95%. Head: Atraumatic, normocephalic. HEENT:[Neck is supple.] [No neck masses.] [No thyromegaly.] [No JVD.] Chest: [Symmetrical chest expansion, clear bilaterally, no rhonchi and no wheezes. Cardiac Exam: Irregular irregular rhythm. [Normal S1 and S2, no S3 gallop, positive mechanical valve sound. Abdomen: [Soft, nontender, no megaly, no rebound, no guarding, normal bowel sounds.] Extremities: [No clubbing, no edema, no cyanosis.] Neurological Exam: [No focal neurologic deficit.] Alert oriented 3. Psychiatric: Normal mood affect and normal mental status examination. Musculoskeletal: No deformities and no limitations in range of motion. Results - Laboratory Findings CBC and BMP: 06/28/21 09:20 06/28/21 09:20 PT/INR, D-dimer PT 41.1 sec (9.0-12.0) H 06/29/21 08:53 INR 4.1 (<1.2) H 06/29/21 08:53 Abnormal lab findings: Abnormal Labs 06/28/21 06/28/21 06/28/21 09:20 09:20 09:20 RBC 3.39 L Hgb 11.2 L Hct 32.6 L Lymphocytes # 0.7 L PT 43.7 H INR 4.4 H APTT 48.0 H Sodium 134 L Carbon Dioxide 21 L Glucose 115 H Troponin I Albumin 3.0 L HDL Cholesterol 06/28/21 06/28/21 06/28/21 09:20 15:19 15:19 RBC Hgb Hct Lymphocytes # PT INR APTT 49.5 H Sodium Carbon Dioxide Glucose Troponin I 0.075 H* 0.071 H* Albumin HDL Cholesterol 06/28/21 06/29/21 06/29/21 18:21 08:53 08:53 RBC Hgb Hct Lymphocytes # PT 41.1 H INR 4.1 H APTT Sodium Carbon Dioxide Glucose Troponin I 0.075 H* Albumin HDL Cholesterol 28.40 L - Diagnostic Findings Chest x-ray: image reviewed (As noted in HPI.) Assessment and Plan Assessment: Impression: Atrial fibrillation with RVR. Suspect mild diastolic congestive heart failure. History of mild intermittent asthma, presently inactive. FEV1 is normally 73%. History of valvular heart disease and previous valve replacement. History of paroxysmal atrial fibrillation. Recommendation: Continue present treatment plan. Continue bronchodilators. Empiric antibiotics, however based on the protocol to total level, may or may not continue with antibiotics. Continue Cardizem drip and cardiology see on consultation. Continue Coumadin. We will continue to follow. Time with Patient: Greater than 30
[2021-06-29] MEDS: DILTIAZEM 125 MG in SODIUM CHLORIDE 0.9% 100 ML IV SCH (14:07)
--- NOTE | 2021-06-29 14:13 | P.CRDCN ---
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 She admits she has been short of breath over the last few weeks and thought this was related to COPD. She finally came to emergency department was found to be in A. fib with RVR with heart rates in the 140s and 150s. He was placed on a Cardizem drip and heart rate somewhat better in the 120s. She denies any prior history of A. fib. She has been on the Coumadin and has done well with this. Prior echo from 2019 showed preserved EF with normally functioning mechanical aortic and mitral valves. She denies any lightheadedness however her blood pressures have been borderline. No history of stroke or TIA. Denies any chest pain or pressure. Follows with Dr Pryor for cardiology however he is retiring. REVIEW OF SYSTEMS At the time of my exam: CONSTITUTIONAL: Denies fever or chills. CARDIOVASCULAR: Denies chest pain, +shortness of breath, no orthopnea, PND or palpitations. RESPIRATORY: Denies cough. GASTROINTESTINAL: Denies abdominal pain, diarrhea, constipation, nausea or vomiting. MUSCULOSKELETAL: Denies myalgias. NEUROLOGIC: Denies numbness, tingling or weakness. ENDOCRINE: Denies fatigue, weight change, polydipsia or polyurina. GENITOURINARY: Denies burning, hematuria or urgency with micturation. HEMATOLOGIC: Denies history of anemia or bleeding. PHYSICAL EXAMINATION Vital signs reviewed. CONSTITUTIONAL: No apparent distress. HEENT: Head is normocephalic. Pupils are equal, round. Sclerae anicteric. Mucous membranes of the mouth are moist. No JVD. No carotid bruit. CHEST EXAMINATION: Lungs are clear to auscultation. No chest wall tenderness is noted on palpation or with deep breathing. HEART EXAMINATION: Irregular rate and rhythm. S1, S2 heard. +3/6 systolic and diastolic murmurs, no gallops or rub. ABDOMEN: Soft, nontender. Positive bowel sounds. EXTREMITIES: 2+ peripheral pulses, no lower extremity edema and no calf tenderness. NEUROLOGIC EXAMINATION: Patient is awake, alert and oriented x3. ASSESSMENT 1. New onset A. fib with RVR 2. Acute on chronic diastolic heart failure 3. History of aortic and mitral mechanical valve replacement related to endocarditis 4. History of COPD 5. NSTEMI, likely related to heart failure and A. fib with RVR. No chest pain and appears type II mechanism PLAN Patient without any significant angina-type symptoms other than shortness breath which appears related to heart failure and A. fib with RVR. Check 2-D echo for LV function with minimally elevated troponins related to A. fib with RVR. New-onset of A. fib with RVR and continue with metoprolol however blood pressures have been borderline and therefore we will also attempt rhythm control with amiodarone. They consider other rhythm at times outpatient. Continue with diuresis. Further recommendations to follow. Past Medical History Past Medical History: Asthma, COPD Additional Past Medical History / Comment(s): Bacterial endocarditis s/p tooth abscess, subdural hematoma, UTI History of Any Multi-Drug Resistant Organisms: None Reported Past Surgical History: Cardiac Valve Replacement Additional Past Surgical History / Comment(s): Mitral and aortic valve replacement in 1991. Bladder suspension Past Anesthesia/Blood Transfusion Reactions: No Reported Reaction Past Psychological History: Anxiety, Depression Smoking Status: Former smoker Past Alcohol Use History: Daily Past Drug Use History: None Reported Additional Drug Use History / Comment(s): Drinks usually about one beer a day. Quit smoking in 1998. - Past Family History Father Additional Family Medical History / Comment(s): endocarditis, rheumatic fever d ied at age 32 Mother Additional Family Medical History / Comment(s): "embolism at 90" Medications and Allergies Home Medications Medication Instructions Recorded Confirmed Type Fluticasone/Salmeterol [Advair 1 puff INHALATION RT-BID 12/18/16 06/28/21 History 250-50 Diskus] Montelukast [Singulair] 10 mg PO HS 04/03/18 06/28/21 History rOPINIRole HCL [Requip] 0.5 mg PO HS 04/03/18 06/28/21 History Mirabegron [Myrbetriq] 25 mg PO DAILY 08/31/19 06/28/21 History Sertraline [Zoloft] 25 mg PO HS 08/31/19 06/28/21 History Sertraline [Zoloft] 50 mg PO DAILY 08/31/19 06/28/21 History Acetaminophen Tab [Tylenol] 325 - 650 mg PO Q4H PRN 06/28/21 06/28/21 History Albuterol Sulfate [Ventolin HFA] 1 - 2 puff INHALATION RT-Q6H PRN 06/28/21 06/28/21 History Omeprazole [PriLOSEC] 20 mg PO AC-BID 06/28/21 06/28/21 History Warfarin [Coumadin] 2.5 mg PO DIRECTED 06/28/21 06/28/21 History Zolpidem [Ambien] 10 mg PO HS PRN 06/28/21 06/28/21 History Allergies Allergy/AdvReac Type Severity Reaction Status Date / Time No Known Allergies Allergy Verified 06/28/21 10:18 Physical Exam Vitals: Vital Signs Temp Pulse Pulse Resp BP BP Pulse Ox 06/29/21 12:20 97.7 F 107 H 20 115/66 96 06/29/21 07:45 97.8 F 113 H 20 101/60 95 06/29/21 04:00 97.2 F L 62 20 100/72 95 06/29/21 01:47 16 06/28/21 23:00 98 F 60 16 97/53 94 L 06/28/21 20:00 18 06/28/21 19:57 97.5 F L 131 H 18 116/75 96 06/28/21 15:58 97.7 F 120 H 20 113/72 96 06/28/21 15:41 97.9 F 129 H 97 06/28/21 15:23 131 H 18 106/56 97 Intake and Output 06/28/21 06/29/21 06/29/21 22:59 06:59 14:59 Intake Total 29.75 95.25 Balance 29.75 95.25 Intake: Intake, IV Titration 29.75 95.25 Amount Diltiazem 125 mg In 29.75 95.25 Sodium Chloride 0.9% 100 ml @ 5 MG/HR 5 mls/hr IV .Q24H [facility] Rx#:[id number] Other: Weight 60.781 kg 62.7 kg Results 06/28/21 09:20 06/28/21 09:20 Cardiac Enzymes 06/28/21 06/28/21 Range/Units 15:19 18:21 Troponin I 0.071 H* 0.075 H* (0.000-0.034) ng/mL Coagulation 06/28/21 06/29/21 Range/Units 15:19 08:53 PT 41.1 H (9.0-12.0) sec APTT 49.5 H (22.0-30.0) sec Lipids 06/29/21 Range/Units 08:53 Triglycerides 83.90 (0.00-149.00) mg/dL Cholesterol 133.00 (0.00-200.00) mg/dL HDL Cholesterol 28.40 L (40.00-60.00) mg/dL Cholesterol/HDL Ratio 4.68 Ratio Current Medications Generic Name Dose Route Start Last Admin Trade Name Freq PRN Reason Stop Dose Admin Acetaminophen 650 mg 06/28/21 20:05 06/28/21 20:14 Acetaminophen Tab 325 Mg Tab PO 650 mg Q6HR PRN Administration Fever and/ or Pain Albuterol Sulfate 2 puff 06/28/21 18:23 Albuterol Hfa Inhaler INHALATION RT-Q6H PRN Shortness Of Breath Aspirin 325 mg 06/29/21 09:00 06/29/21 09:17 Aspirin 325 Mg Tab PO 325 mg DAILY [facility] Administration Budesonide/Formoterol Fumarate 2 puff 06/28/21 20:00 06/29/21 08:02 Symbicort 80-4.5 Mcg Inhaler INHALATION 2 puff RT-BID [facility] Administration Furosemide 20 mg 06/30/21 09:00 Furosemide 10 Mg/Ml 2 Ml Vial IV DAILY [facility] Heparin Sodium/Sodium Chloride 250 mls @ 7.294 mls/hr 06/28/21 09:45 06/29/21 11:02 25,000 unit/ Sodium Chloride IV Not Given .Q24H [facility] Protocol 12 UNITS/KG/HR Diltiazem HCl 125 mg/ Sodium 125 mls @ 5 mls/hr 06/28/21 09:45 06/29/21 14:07 Chloride IV 10 mg/hr .Q24H [facility] 10 mls/hr Administration 5 MG/HR Piperacillin Sod/Tazobactam 100 mls @ 25 mls/hr 06/29/21 10:15 06/29/21 11:13 Sod 3.375 gm/ Sodium Chloride IVPB 25 mls/hr Q8HR [facility] Administration Metoprolol Tartrate 25 mg 06/28/21 21:00 06/29/21 09:17 Metoprolol Tartrate 25 Mg Tab PO 25 mg BID MICHELLE Administration Miscellaneous Information 0 each 06/28/21 18:42 Warfarin Per Pharmacy MISCELLANE DIRECTED PRN PER PROTOCOL Montelukast Sodium 10 mg 06/28/21 21:00 06/28/21 20:14 Montelukast 10 Mg Tab PO 10 mg HS [facility] Administration Nitroglycerin 0.4 mg 06/28/21 13:43 Nitroglycerin Sl Tabs 0.4 Mg Tab SUBLINGUAL Q5M PRN Chest Pain Non-Formulary Medication 25 mg 06/29/21 09:00 06/29/21 09:18 Mirabegron [Myrbetriq] PO Not Given DAILY [facility] Pantoprazole Sodium 40 mg 06/29/21 07:30 06/29/21 06:20 Pantoprazole 40 Mg Tablet PO 40 mg DAILY@0730 [facility] Administration Ropinirole HCl 0.5 mg 06/28/21 21:00 06/28/21 20:14 Ropinirole Hcl 0.25 Mg Tab PO 0.5 mg HS [facility] Administration Sertraline HCl 25 mg 06/28/21 21:00 06/28/21 20:14 Sertraline 25 Mg Tab PO 25 mg HS [facility] Administration Sertraline HCl 50 mg 06/29/21 09:00 06/29/21 09:17 Sertraline 50 Mg Tab PO 50 mg DAILY MICHELLE Administration Warfarin Sodium 0 mg 06/29/21 18:00 Warfarin 0.5 Mg Tab PO 06/29/21 18:01 ONCE@1800 ONE Zolpidem Tartrate 10 mg 06/28/21 18:23 Zolpidem 10 Mg Tab PO HS PRN Insomnia Intake and Output 06/28/21 06/29/21 06/29/21 22:59 06:59 14:59 Intake Total 29.75 95.25 Balance 29.75 95.25 Intake: Intake, IV Titration 29.75 95.25 Amount Diltiazem 125 mg In 29.75 95.25 Sodium Chloride 0.9% 100 ml @ 5 MG/HR 5 mls/hr IV .Q24H [facility] Rx#:[id number] Other: Weight 60.781 kg 62.7 kg 06/28/21 09:20 06/28/21 09:20
[2021-06-29] MEDS ORDERED: DEXTROSE 5% IN WATER 100 ML with AMIODARONE 150 MG IV ONE (14:30)
[2021-06-29] MEDS ORDERED: AMIODARONE 360 MG in DEXTROSE 5% IN WATER 200 ML IV ONE ×2 (14:40)
[2021-06-29] MEDS ORDERED: AMIODARONE IN DEXTROSE,ISO-OSM 150 MG/100 ML PLAST..BAG IV ONE (15:40)
[2021-06-29] MEDS: ALBUTEROL HFA INHALER INHALATION PRN ×2 (16:03→19:30)
--- NOTE | 2021-06-29 16:21 | XR ---
EXAMINATION TYPE: XR chest 2V DATE OF EXAM: 06/29/2021 COMPARISON: 06/28/2021 HISTORY: COPD TECHNIQUE: 2 views FINDINGS: There is some blunting of the costophrenic angles. There are no hilar masses. Heart size is normal. There are sternal wires. Thoracic aorta is atheromatous. There is pulmonary hyperinflation t he bones are osteopenic. IMPRESSION: COPD. Small pleural effusions. No obvious heart failure. No change compared to yesterday. Mild pulmonary interstitial infiltrates.
[2021-06-29] MEDS ORDERED: WARFARIN 0.5 MG TAB PO ONE (18:00)
[2021-06-29] MEDS: MONTELUKAST 10 MG TAB PO SCH (20:15)
[2021-06-29] MEDS: SERTRALINE 25 MG TAB PO SCH (20:15)
[2021-06-30] MEDS: PANTOPRAZOLE 40 MG TABLET PO SCH (06:45)
[2021-06-30] MEDS: METOPROLOL TARTRATE 25 MG TAB PO SCH ×2 (07:56→20:51)
[2021-06-30] MEDS: NON FORMULARY DRUG (Mirabegron [Myrbetriq] 25 MG Tab.Er.24h) PO SCH (07:57)
[2021-06-30] MEDS: PIPERACILLIN-TAZOBACTAM 3.375 GM in SODIUM CHLORIDE 0.9% 100 ML IVPB SCH ×3 (07:57→23:52)
[2021-06-30] MEDS: HEPARIN SOD,PORK IN 0.45% NACL 25,000 UNIT in 0.45% NACL 1 250ML.BAG IV SCH (07:57)
[2021-06-30] MEDS: ASPIRIN 325 MG TAB PO SCH (07:57)
[2021-06-30] MEDS: FUROSEMIDE 10 MG/ML 2 ML VIAL IV SCH (07:57)
[2021-06-30] MEDS: SERTRALINE 50 MG TAB PO SCH (07:57)
[2021-06-30] MEDS: SYMBICORT 80-4.5 MCG INHALER INHALATION SCH ×2 (08:14→20:47)
[2021-06-30] MEDS: ALBUTEROL HFA INHALER INHALATION PRN ×2 (08:14→20:47)
[2021-06-30 08:29] LABS: INR 2.7 (<1.2); Prothrombin Time 27.3 sec (9.0-12.0)
[2021-06-30 08:33] LABS: Calcium 8.4 mg/dL (8.4-10.2); Potassium 3.9 mmol/L (3.5-5.1)
[2021-06-30 08:46] LABS: Basophils % (A) 0 %; Eosinophils # (A) 0.1 k/uL (0-0.7); Eosinophils % (A) 2 %; HCT 31.7 % (34.0-46.0); HGB 10.3 gm/dL (11.4-16.0); Hypochromasia Slight; Lymphocytes # (A) 0.9 k/uL (1.0-4.8); Lymphocytes % (A) 14 %; MCH 32.4 pg (25.0-35.0); MCHC 32.4 g/dL (31.0-37.0); Mean Platelet Volume 7.7; Monocytes # (A) 0.3 k/uL (0-1.0); Monocytes % (A) 5 %; Neutrophils # (A) 4.7 k/uL (1.3-7.7); Neutrophils % (A) 77 %; Platelet Count 285 k/uL (150-450); Poikilocytosis Slight; RBC 3.17 m/uL (3.80-5.40); RDW 14.3 % (11.5-15.5); WBC 6.1 k/uL (3.8-10.6)
--- NOTE | 2021-06-30 11:46 | P.PN ---
Subjective Progress Note Date: 06/30/21 Principal diagnosis: Atrial fibrillation with RVR This is an 81-year-old female, familiar to my service, patient was last seen in my office back in March of 2021, and she has mostly mild intermittent asthma, maintained on bronchodilators, she is also known to have history of chronic dyspnea on exertion, history of subdural hematoma/traumatic in nature. Patient is normally maintained on Advair, Singulair, and albuterol. Patient was seen in the ER yesterday mostly with 2 weeks history of shortness of breath, cough with whitish phlegm, no fever, no chills, no hemoptysis. Patient is known to have history of valvular heart disease, and she had previous mitral and aortic valve replacement in 1991. Patient is maintained on Coumadin, she had no previous history of atrial fibrillation. In the ER, she was found to have atrial fibrillation with RVR, rate of 150, her chest x-ray showed mild interstitial edema, and pulmonary vascular congestion, patient was admitted, started on Cardizem drip, and I was asked to see her on consultation. Patient also describes symptoms of burning sensation on urination. She is now empirically on Zosyn. She is also on Cardizem drip, patient tested negative for COVID-19 infection. Her urinalysis is basically unremarkable, and her troponin is elevated at 0.075. No evidence of leukocytosis. Her INR is supratherapeutic at 4.1. Electrolytes and renal profile are normal. BNP level was noted to be elevated at 10,100. Pro-calcitonin is pending. Reevaluated today on 06/30/2021, patient is feeling better today, she is on 2 L nasal cannula, O2 sats is 97%. Her atrial fibrillation seems to be controlled, rate is 83. Does not seem to be in any distress. CBC is relatively normal, INR is 2.7 and electrolytes are normal renal profile is normal, patient is being followed by cardiology for her new onset atrial fibrillation, and her non-ST elevation myocardial infarction. Objective - Vital Signs Vital signs: Vital Signs Temp 97.9 F 06/30/21 07:50 Pulse 74 06/30/21 07:50 Resp 22 06/30/21 07:50 BP 123/57 06/30/21 07:50 Pulse Ox 97 06/30/21 07:50 Intake & Output 06/29/21 06/30/21 06/30/21 18:59 06:59 18:59 Intake Total 236 Balance 236 Intake: Oral 236 Other: # Voids 2 2 - Exam Physical Exam: Revealed 81-year-old white female, in no distress, on 2 L nasal cannula Head: Atraumatic, normocephalic. HEENT:[Neck is supple.] [No neck masses.] [No thyromegaly.] [No JVD.] Chest: [Symmetrical chest expansion, clear bilaterally, no rhonchi and no wheezes. Cardiac Exam: Irregular irregular rhythm. [Normal S1 and S2, no S3 gallop, positive mechanical valve sound. Abdomen: [Soft, nontender, no megaly, no rebound, no guarding, normal bowel sounds.] Extremities: [No clubbing, no edema, no cyanosis.] Neurological Exam: [No focal neurologic deficit.] Alert oriented 3. Psychiatric: Normal mood affect and normal mental status examination. Musculoskeletal: No deformities and no limitations in range of motion. - Labs CBC & Chem 7: 06/30/21 07:39 06/30/21 07:39 Labs: Abnormal Lab Results - Last 24 Hours (Table) 06/29/21 06/30/21 06/30/21 Range/Units 08:53 07:39 07:39 RBC 3.17 L (3.80-5.40) m/uL Hgb 10.3 L (11.4-16.0) gm/dL Hct 31.7 L (34.0-46.0) % Lymphocytes # 0.9 L (1.0-4.8) k/uL PT (9.0-12.0) sec INR (<1.2) Chloride 108 H (98-107) mmol/L HDL Cholesterol 28.40 L (40.00-60.00) mg/dL 06/30/21 Range/Units 07:39 RBC (3.80-5.40) m/uL Hgb (11.4-16.0) gm/dL Hct (34.0-46.0) % Lymphocytes # (1.0-4.8) k/uL PT 27.3 H (9.0-12.0) sec INR 2.7 H (<1.2) Chloride (98-107) mmol/L HDL Cholesterol (40.00-60.00) mg/dL Assessment and Plan Assessment: Impression: Atrial fibrillation with RVR. Acute diastolic congestive heart failure History of mild intermittent asthma, presently inactive. FEV1 is normally 73%. History of valvular heart disease and previous valve replacement. History of paroxysmal atrial fibrillation. Recommendation: Continue present treatment plan. Continue bronchodilators. Continue Coumadin. Consider discharge planning in the next 24 hours if cleared by cardiology. We will continue to follow. Time with Patient: Less than 30
--- NOTE | 2021-06-30 11:59 | P.PN ---
Latia Foster is an 81-year-old white female well-known to me. I've been seeing in the office in several visits for acute COPD. She had came in the emergency room yesterday for increased shortness of breath and cough. 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 In the ER she was found to have a significantly elevated heart rate of 150 and EKG showed atrial fibrillation. She is currently resting comfortably on Cardizem drip. She remains afebrile, heart rate is variable area blood pressure remained controlled. There are no laboratory studies pending this revealed an INR of 4.1. Chemistries and CBC from yesterday were essentially normal. A cardiology consult is pending. Robert she denies any chest pains, pressures, shortness breath at rest. She does have some shortness breath with exertion. Denies any nausea or vomiting no dysuria hematuria hematochezia. She has not had a bowel movement today. 06/30/2021: Patient remains afebrile. Heart rate is now controlled in the 70s. Blood pressure stable, oxygen saturation is stable on 2 L nasal cannula. diltiazem and heparin have been discontinued. Laboratory studies show slight anemia and hemoglobin 10.3. INR today is 2.7. Electrolytes are normal. Chest x-ray this morning shows COPD small pleural effusions no obvious heart fa ilure and no change compared to yesterday mild pulmonary interstitial infiltrates. Etiology pulmonary consult notes were reviewed from yesterday and today. Patient remains on albuterol, budesonide, Singulair for her asthma and COPD. She remains anticoagulated with warfarin due to mechanical valve and recent new onset atrial fibrillation. She is now on amiodarone for A. fib heart rate control. She remains on Lasix for diuresis. Remains on metoprolol for rate control as well. His when necessary nitroglycerin ordered. She remains on Zosyn for the infiltrates noted on x-ray. We discussed the findings were abnormal troponins and the cardiology feels this wasn't an STEMI. This morning patient denies any chest pains, pressures. She has shortness of breath ON exertion. She feels fine and rest. Denies any nausea or vomiting. She is eating and drinking normally. Objective - Vital Signs Vital signs: Vital Signs Temp 97.9 F 06/30/21 07:50 Pulse 74 06/30/21 07:50 Resp 22 06/30/21 07:50 BP 123/57 06/30/21 07:50 Pulse Ox 97 06/30/21 07:50 Intake & Output 06/29/21 06/30/21 06/30/21 18:59 06:59 18:59 Intake Total 236 Balance 236 Intake: Oral 236 Other: # Voids 2 2 - Exam GENERAL: Well-appearing, well-nourished female and in no acute distress. HEAD: Atraumatic, normocephalic. EYES: Pupils equal round and reactive to light, extraocular movements intact, sclera anicteric, conjunctiva are normal. ENT:nares patent, oropharynx clear without exudates. Moist mucous membranes. NECK: Normal range of motion, supple without lymphadenopathy or JVD, no thyromegaly LUNGS: Breath sounds coarse to auscultation bilaterally and equal. No wheezes rales or rhonchi. HEART: Irregular rate and irregular rhythm now rate controlled at approximately 75 bpm at this time is 1/6 systolic murmur is noted from her mechanical heart valves. No rubs or gallops.S1S2 Normal ABDOMEN: Soft, nontender, normoactive bowel sounds. No guarding, no rebound. No masses appreciated. EXTREMITIES: Normal range of motion, no pitting or edema. No clubbing or cyanosis. NEUROLOGICAL: Cranial nerves II through XII grossly intact. Normal speech, normal gait. PSYCH: Normal mood, normal affect. SKIN: Warm, Dry, normal turgor, no rashes or lesions noted. - Labs CBC & Chem 7: 06/30/21 07:39 06/30/21 07:39 Labs: Abnormal Lab Results - Last 24 Hours (Table) 06/29/21 06/30/21 06/30/21 Range/Units 08:53 07:39 07:39 RBC 3.17 L (3.80-5.40) m/uL Hgb 10.3 L (11.4-16.0) gm/dL Hct 31.7 L (34.0-46.0) % Lymphocytes # 0.9 L (1.0-4.8) k/uL PT (9.0-12.0) sec INR (<1.2) Chloride 108 H (98-107) mmol/L HDL Cholesterol 28.40 L (40.00-60.00) mg/dL 06/30/21 Range/Units 07:39 RBC (3.80-5.40) m/uL Hgb (11.4-16.0) gm/dL Hct (34.0-46.0) % Lymphocytes # (1.0-4.8) k/uL PT 27.3 H (9.0-12.0) sec INR 2.7 H (<1.2) Chloride (98-107) mmol/L HDL Cholesterol (40.00-60.00) mg/dL Assessment and Plan (1) Atrial fibrillation with rapid ventricular response Current Visit: Yes Status: Acute Code(s): I48.91 - UNSPECIFIED ATRIAL FIBRILLATION SNOMED Code(s): 021176136506674 (2) Acute exacerbation of chronic obstructive pulmonary disease (COPD) Current Visit: Yes Status: Acute Code(s): J44.1 - CHRONIC OBSTRUCTIVE PULMONARY DISEASE W (ACUTE) EXACERBATION SNOMED Code(s): 071161574 (3) shelter current use of anticoagulant therapy Current Visit: Yes Status: Acute Code(s): Z79.01 - [employer] (CURRENT) USE OF ANTICOAGULANTS SNOMED Code(s): 267239664 (4) H/O heart valve replacement with mechanical valve Current Visit: Yes Status: Acute Code(s): Z95.2 - PRESENCE OF PROSTHETIC HEART VALVE SNOMED Code(s): 39982605853950 (5) Weakness Current Visit: No Status: Acute Code(s): R53.1 - WEAKNESS SNOMED Code(s): 43568555 (6) Acute on chronic systolic (congestive) heart failure Current Visit: Yes Status: Acute Code(s): I50.23 - ACUTE ON CHRONIC SYSTOLIC (CONGESTIVE) HEART FAILURE SNOMED Code(s): 894540371 (7) NSTEMI (non-ST elevated myocardial infarction) Current Visit: Yes Status: Acute Code(s): I21.4 - NON-ST ELEVATION (NSTEMI) MYOCARDIAL INFARCTION SNOMED Code(s): 53168474 (8) Macrocytic anemia Current Visit: Yes Status: Acute Code(s): D53.9 - NUTRITIONAL ANEMIA, UNSPECIFIED SNOMED Code(s): 60127429 Plan: We'll wait on the recommendations cardiology and pulmonology. Heparin and IV Cardizem but discontinued. She is on a amiodarone drip and being converted over to orals. She feels much improved. She looks improved. She'll continue current medications and treatments this time. We will expect discharge in the next 24 hours if cleared by cardiology.
[2021-06-30] MEDS: AMIODARONE 450 MG in DEXTROSE 5% IN WATER 250 ML IV SCH ×2 (12:44)
[2021-06-30] MEDS: AMIODARONE 200 MG TAB PO SCH ×2 (14:23→20:51)
--- NOTE | 2021-06-30 14:27 | P.PN ---
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 She admits she has been short of breath over the last few weeks and thought this was related to COPD. She finally came to emergency department was found to be in A. fib with RVR with heart rates in the 140s and 150s. He was placed on a Cardizem drip and heart rate somewhat better in the 120s. She denies any prior history of A. fib. She has been on the Coumadin and has done well with this. Prior echo from 2019 showed preserved EF with normally functioning mechanical aortic and mitral valves. She denies any lightheadedness however her blood pressures have been borderline. No history of stroke or TIA. Denies any chest pain or pressure. Follows with Dr Pryor for cardiology however he is retiring. 06/30 Patient seen and examined. Patient denies any chest pain or pressure. Believes her breathing is much better. She converted to sinus rhythm overnight. PHYSICAL EXAMINATION Vital signs reviewed. CONSTITUTIONAL: No apparent distress. HEENT: Head is normocephalic. Pupils are equal, round. Sclerae anicteric. Mucous membranes of the mouth are moist. No JVD. No carotid bruit. CHEST EXAMINATION: Lungs are clear to auscultation. No chest wall tenderness is noted on palpation or with deep breathing. HEART EXAMINATION: Irregular rate and rhythm. S1, S2 heard. +3/6 systolic and diastolic murmurs, no gallops or rub. ABDOMEN: Soft, nontender. Positive bowel sounds. EXTREMITIES: 2+ peripheral pulses, no lower extremity edema and no calf tenderness. NEUROLOGIC EXAMINATION: Patient is awake, alert and oriented x3. ASSESSMENT 1. New onset A. fib with RVR, converted to sinus rhythm 2. Acute on chronic diastolic heart failure 3. History of aortic and mitral mechanical valve replacement related to endocarditis 4. History of COPD 5. NSTEMI, likely related to heart failure and A. fib with RVR. No chest pain and appears type II mechanism PLAN Patient without any significant angina-type symptoms other than shortness breath which appears related to heart failure and A. fib with RVR. Await 2-D echo for LV function with minimally elevated troponins related to A. fib with RVR. New-onset of A. fib with RVR and continue with metoprolol and continue with amiodarone oral. Continue with diuretics and hopeful discharge in next 24-48 hours if continues i mproved. Objective - Vital Signs Vital signs: Vital Signs Temp 97.4 F L 06/30/21 12:21 Pulse 68 06/30/21 12:21 Resp 20 06/30/21 12:21 BP 135/71 06/30/21 12:21 Pulse Ox 99 06/30/21 12:21 Intake & Output 06/29/21 06/30/21 06/30/21 18:59 06:59 18:59 Intake Total 486 Balance 486 Intake: Intake, IV Titration 250 Amount Amiodarone 450 mg In 250 Dextrose 5% in Water 250 ml @ 0.5 MG/MIN 16.667 mls/hr IV .Q15H [facility] Rx#: [id number] Oral 236 Other: # Voids 2 2 - Labs CBC & Chem 7: 06/30/21 07:39 06/30/21 07:39 Labs: Abnormal Lab Results - Last 24 Hours (Table) 06/30/21 06/30/21 06/30/21 Range/Units 07:39 07:39 07:39 RBC 3.17 L (3.80-5.40) m/uL Hgb 10.3 L (11.4-16.0) gm/dL Hct 31.7 L (34.0-46.0) % Lymphocytes # 0.9 L (1.0-4.8) k/uL PT 27.3 H (9.0-12.0) sec INR 2.7 H (<1.2) Chloride 108 H (98-107) mmol/L
[2021-06-30 17:40] LABS: % Iron Saturation 13.9 (12.00-45.00); Folate, Serum 15.9 ng/mL (4.40-31.00)
[2021-06-30] MEDS ORDERED: WARFARIN 3 MG TAB PO ONE (18:00)
[2021-06-30] MEDS ORDERED: ZOLPIDEM 5 MG TAB PO PRN (20:49)
[2021-06-30] MEDS: SERTRALINE 25 MG TAB PO SCH (20:50)
[2021-06-30] MEDS: MONTELUKAST 10 MG TAB PO SCH (20:51)
[2021-06-30] MEDS: ACETAMINOPHEN TAB 325 MG TAB PO PRN (22:06)
[2021-07-01] MEDS: PANTOPRAZOLE 40 MG TABLET PO SCH (06:14)
[2021-07-01 09:17] LABS: Prothrombin Time 30.3 sec (9.0-12.0)
[2021-07-01] MEDS: ALBUTEROL HFA INHALER INHALATION PRN (09:29)
[2021-07-01] MEDS: SYMBICORT 80-4.5 MCG INHALER INHALATION SCH ×2 (09:29→20:50)
[2021-07-01 09:31] LABS: Calcium 8.5 mg/dL (8.4-10.2); Magnesium 1.9 mg/dL (1.6-2.3); Potassium 3.5 mmol/L (3.5-5.1)
[2021-07-01] MEDS: METOPROLOL TARTRATE 25 MG TAB PO SCH (10:49)
[2021-07-01] MEDS: SERTRALINE 50 MG TAB PO SCH (10:49)
[2021-07-01] MEDS: AMIODARONE 200 MG TAB PO SCH (10:49)
[2021-07-01] MEDS: FUROSEMIDE 10 MG/ML 2 ML VIAL IV SCH (10:49)
[2021-07-01] MEDS: PIPERACILLIN-TAZOBACTAM 3.375 GM in SODIUM CHLORIDE 0.9% 100 ML IVPB SCH ×2 (10:49→18:41)
[2021-07-01] MEDS: NON FORMULARY DRUG (Mirabegron [Myrbetriq] 25 MG Tab.Er.24h) PO SCH (10:50)
--- NOTE | 2021-07-01 12:28 | P.PN ---
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 She follows with Dr. Torres. She admits she has been short of breath over the last few weeks and thought this was related to COPD. She finally came to emergency department was found to be in A. fib with RVR with heart rates in the 140s and 150s. He was placed on a Cardizem drip and heart rate somewhat better in the 120s. She denies any prior history of A. fib. She has been on the Coumadin and has done well with this. Prior echo from 2019 showed preserved EF with normally functioning mechanical aortic and mitral valves. She denies any lightheadedness however her blood pressures have been borderline. No history of stroke or TIA. Denies any chest pain or pressure. 06/30 Patient seen and examined. Patient denies any chest pain or pressure. Believes her breathing is much better. She converted to sinus rhythm overnight. 07/01/2021 Patient seen and examined at bedside, no acute distress. She denies any chest pain or shortness of breath. She is maintaining sinus mechanism with heart rate in the 60s. She's currently maintained on amiodarone 400 mg twice a day, metoprolol tartrate 25 mg twice a day, Coumadin Labs, INR 3.0, sodium 1:30, potassium 3.5, BUN 10, serum creatinine 0.8, magnesium 1.9 PHYSICAL EXAMINATION Vital signs reviewed. CONSTITUTIONAL: No apparent distress. HEENT: Neck supple. No JVD. CHEST EXAMINATION: Lungs are clear to auscultation. No chest wall tenderness is noted on palpation or with deep breathing. HEART EXAMINATION: Regular rate and rhythm. S1, S2 heard. +3/6 systolic and diastolic murmurs, no gallops or rub. ABDOMEN: Soft, nontender. Positive bowel sounds. EXTREMITIES: 2+ peripheral pulses, no lower extremity edema and no calf tenderness. NEUROLOGIC EXAMINATION: Patient is awake, alert and oriented x3. ASSESSMENT New onset paroxysmal Atrial fibrillation with RVR, converted to sinus rhythm Acute on chronic heart failure History of aortic and mitral mechanical valve replacement related to endocarditis History of COPD NSTEMI, likely related to heart failure and A. fib with RVR. No chest pain and appears type II mechanism PLAN Patient without any significant angina-type symptoms other than shortness breath which appears related to heart failure and A. fib with RVR. 2D echocardiogram pending Continue with metoprolol and continue with amiodarone oral. Recommend discontinue IV Lasix If echocardiogram with no acute findings, ok to discharge patient today and she may follow up with Dr. Torres outpatient Objective - Vital Signs Vital signs: Vital Signs Temp 97.8 F 07/01/21 10:45 Pulse 76 07/01/21 10:45 Resp 18 07/01/21 10:45 BP 138/53 07/01/21 10:45 Pulse Ox 95 07/01/21 10:45 Intake & Output 06/30/21 07/01/21 07/01/21 18:59 06:59 18:59 Intake Total 118 480 120 Balance 118 480 120 Weight 61 kg Intake: Oral 118 480 120 Other: Voiding Method Toilet Toilet # Voids 3 1 - Labs CBC & Chem 7: 06/30/21 07:39 07/01/21 08:24 Labs: Abnormal Lab Results - Last 24 Hours (Table) 06/30/21 07/01/21 Range/Units 07:52 08:24 PT 30.3 H (9.0-12.0) sec INR 3.0 H (<1.2) Iron 29 L (50-170) ug/dL TIBC 209 L (228-460) ug/dL Transferrin 149.0 L (204.0-354.0) mg/dL Ferritin 415.0 H (10.0-291.0) ng/mL
[2021-07-01] MEDS: ASPIRIN 325 MG TAB PO SCH (13:17)
--- NOTE | 2021-07-01 14:30 | P.PN ---
Subjective Progress Note Date: 07/01/21 Principal diagnosis: Shortness of breath. 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 Patient is normally maintained on Advair, Singulair, and albuterol. Patient was seen in the ER yesterday mostly with 2 weeks history of shortness of breath, cough with whitish phlegm, no fever, no chills, no hemoptysis. Patient is known to have history of valvular heart disease, and she had previous mitral and aortic valve replacement in 1991. Patient is maintained on Coumadin, she had no previous history of atrial fibrillation. In the ER, she was found to have atrial fibrillation with RVR, rate of 150, her chest x-ray showed mild interstitial edema, and pulmonary vascular congestion, patient was admitted, started on Cardizem drip, and I was asked to see her on consultation. Patient also describes symptoms of burning sensation on urination. She is now empirically on Zosyn. She is also on Cardizem drip, patient tested negative for COVID-19 infection. Her urinalysis is basically unremarkable, and her troponin is elevated at 0.075. No evidence of leukocytosis. Her INR is supratherapeutic at 4.1. Electrolytes and renal profile are normal. BNP level was noted to be elevated at 10,100. Pro-calcitonin is pending. Reevaluated today on 06/30/2021, patient is feeling better today, she is on 2 L nasal cannula, O2 sats is 97%. Her atrial fibrillation seems to be controlled, rate is 83. Does not seem to be in any distress. CBC is relatively normal, INR is 2.7 and electrolytes are normal renal profile is normal, patient is being followed by cardiology for her new onset atrial fibrillation, and her non-ST elevation myocardial infarction. Progress note dated 07/01/2021. 81-year-old female, again seen in room 355. Currently, the patient's on room air. She's feeling much improved. She tells me that she is scheduled to have an echocardiogram. She is hoping to be discharged in the near future. She sees my partner in the office for her COPD. Currently labs include a PT of 30.3 and an INR of 3 sodium 138, potassium 3.5, chlorides 106, CO2 27, anion gap 5, BUN 10, creatinine 0.81. The patient's chest x-ray from June 29, shows no evidence of heart failure, and very small pleural effusions. In addition, there are changes of COPD. Objective - Vital Signs Vital signs: Vital Signs Temp 97.8 F 07/01/21 10:45 Pulse 76 07/01/21 10:45 Resp 18 07/01/21 10:45 BP 138/53 07/01/21 10:45 Pulse Ox 95 07/01/21 10:45 Intake & Output 06/30/21 07/01/21 07/01/21 18:59 06:59 18:59 Intake Total 118 480 120 Balance 118 480 120 Weight 61 kg Intake: Oral 118 480 120 Other: Voiding Method Toilet Toilet # Voids 3 1 - Exam No acute distress, oriented 3. Currently not on any supplemental oxygen. Room air saturation 95%. HEENT examination is grossly unremarkable. Neck supple. Full range of motion. No adenopathy thyromegaly or neck vein distention. Cardiovascular examination reveals regular rhythm rate. S1-S2 normal. No S3 or S4. No discernible murmur noted. Heart rate 76 bpm. Lungs reveal minimal basilar crackles. No wheezes. No rhonchi. Breath sounds are equal bilaterally. Room air saturations are 95%. Abdomen soft bowel sounds are heard. No masses or tenderness. Extremities are intact. No cyanosis clubbing or edema. Skin is without rash or lesion. Neurologic examination is brief but nonfocal. - Labs CBC & Chem 7: 06/30/21 07:39 07/01/21 08:24 Labs: Abnormal Lab Results - Last 24 Hours (Table) 06/30/21 07/01/21 Range/Units 07:52 08:24 PT 30.3 H (9.0-12.0) sec INR 3.0 H (<1.2) Iron 29 L (50-170) ug/dL TIBC 209 L (228-460) ug/dL Transferrin 149.0 L (204.0-354.0) mg/dL Ferritin 415.0 H (10.0-291.0) ng/mL Assessment and Plan Assessment: Atrial fibrillation with rapid ventricular response. Acute diastolic CHF. History of mild intermittent asthma, currently inactive. History of valvular heart disease and previous valve replacement. Paroxysmal atrial fibrillation. Plan: Plan dated 07/01/2021. The patient has been weaned to room air. Her saturations are 95%. She remains on Coumadin. The patient also remains on her normal breathing regimen. Her asthma appears to be inactive at this time. She apparently is waiting for an echocardiogram today. She will see my partner in the office post discharge. Additional recommendations and suggestions are forthcoming. Prognosis is guarded. Labs, x-rays, and medications are all reviewed. Time with Patient: Less than 30
[2021-07-01 15:15] VITALS: BP 90/44; PULSE 69; RESP 20; TEMP 98.1
--- NOTE | 2021-07-01 17:18 | P.DS ---
Providers Date of admission: 06/28/21 13:43 Expected date of discharge: 07/01/21 Attending physician: Boaz Chaudhary Consults: 06/28/21 13:43 Consult Physician Urgent Consulting Provider: [facility] Consult Reason/Comments: A. fib with rapid ventricular response Do you want consulting provider notified?: Yes 06/29/21 10:08 Consult Physician Routine Consulting Provider: Brent Jean-Baptiste Reason/Comments: copd Do you want consulting provider notified?: Yes Primary care physician: Boaz Chaudhary Hospital Course: Final Diagnoses: (1) Atrial fibrillation with rapid ventricular response, converted to sinus rhythm Current Visit: Yes Status: Acute Code(s): I48.91 - UNSPECIFIED ATRIAL FIBRILLATION SNOMED Code(s): 826250205011487 (2) Acute exacerbation of chronic obstructive pulmonary disease (COPD) Current Visit: Yes Status: Acute Code(s): J44.1 - CHRONIC OBSTRUCTIVE PULMONARY DISEASE W (ACUTE) EXACERBATION SNOMED Code(s): 369564022 (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 Current Visit: Yes Status: Acute Code(s): Z79.01 - MCFP (CURRENT) USE OF ANTICOAGULANTS SNOMED Code(s): 600460883 (4) H/O heart valve replacement with mechanical valve Current Visit: Yes Status: Acute Code(s): Z95.2 - PRESENCE OF PROSTHETIC HEART VALVE SNOMED Code(s): 05933700990012 (5) Weakness Current Visit: No Status: Acute Code(s): R53.1 - WEAKNESS SNOMED Code(s): 44922448 (6) Acute on chronic systolic (congestive) heart failure Current Visit: Yes Status: Acute Code(s): I50.23 - ACUTE ON CHRONIC SYSTOLIC (CONGESTIVE) HEART FAILURE SNOMED Code(s): 471411868 (7) NSTEMI (non-ST elevated myocardial infarction) Current Visit: Yes Status: Acute Code(s): I21.4 - NON-ST ELEVATION (NSTEMI) MYOCARDIAL INFARCTION SNOMED Code(s): 61050915 (8) Macrocytic anemia Current Visit: Yes Status: Acute Code(s): D53.9 - NUTRITIONAL ANEMIA, UNSPECIFIED SNOMED Code(s): 65991461 Hospital course:Kristin is an 81-year-old white female well-known to me. I've been seeing in the office in several visits for acute COPD. She had came in the emergency room yesterday for increased shortness of breath and cough. 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 In the ER she was found to have a significantly elevated heart rate of 150 and EKG showed atrial fibrillation. She is currently resting comfortably on Cardizem drip. She remains afebrile, heart rate is variable area blood pressure remained controlled. There are no laboratory studies pending this revealed an INR of 4.1. Chemistries and CBC from yesterday were essentially normal. A cardiology consult is pending. Robert she denies any chest pains, pressures, shortness breath at rest. She does have some shortness breath with exertion. Denies any nausea or vomiting no dy suria hematuria hematochezia. She has not had a bowel movement today. 06/30/2021: Patient remains afebrile. Heart rate is now controlled in the 70s. Blood pressure stable, oxygen saturation is stable on 2 L nasal cannula. diltiazem and heparin have been discontinued. Laboratory studies show slight anemia and hemoglobin 10.3. INR today is 2.7. Electrolytes are normal. Chest x-ray this morning shows COPD small pleural effusions no obvious heart failure and no change compared to yesterday mild pulmonary interstitial infiltrates. Etiology pulmonary consult notes were reviewed from yesterday and today. Patient remains on albuterol, budesonide, Singulair for her asthma and COPD. She remains anticoagulated with warfarin due to mechanical valve and recent new onset atrial fibrillation. She is now on amiodarone for A. fib heart rate control. She remains on Lasix for diuresis. Remains on metoprolol for rate control as well. His when necessary nitroglycerin ordered. She remains on Zosyn for the infiltrates noted on x-ray. We discussed the findings were abnormal troponins and the cardiology feels this wasn't an STEMI. This morning patient denies any chest pains, pressures. She has shortness of breath ON exertion. She feels fine and rest. Denies any nausea or vomiting. She is eating and drinking normally. Significant clinical improvement. Maintained on metoprolol and oral amiodarone. Converted to sinus rhythm. Maintaining O2 sats in the mid 90s on room air. Denies chest pain, palpitations or shortness of breath. Denies nausea vomiting or diarrhea. Denies lightheadedness dizziness or focal deficits. Cleared by cardiology and pulmonary for discharge .Patient will be discharged home today in a stable condition with guarded prognosis, pending echocardiogram. The impression and plan of care has been dictated as directed. : I performed a history and examination of this patient, discussed the same with the dictator. I agree with the dictator's note ,documented as a scribe. Any additional findings or plans will be noted. Patient Condition at Discharge: Stable Plan - Discharge Summary Discharge Rx Participant: Yes New Discharge Prescriptions: New Amiodarone [Cordarone] 400 mg PO BID 60 Days #120 tab Metoprolol Tartrate [Lopressor] 25 mg PO BID 30 Days #60 tab Amoxic-Pot Clav 875-125Mg [Augmentin 875-125] 1 tab PO Q12HR 1 Days #10 tab Continue Fluticasone/Salmeterol [Advair 250-50 Diskus] 1 puff INHALATION RT-BID rOPINIRole HCL [Requip] 0.5 mg PO HS Montelukast [Singulair] 10 mg PO HS Sertraline [Zoloft] 50 mg PO DAILY Sertraline [Zoloft] 25 mg PO HS Mirabegron [Myrbetriq] 25 mg PO DAILY Zolpidem [Ambien] 10 mg PO HS PRN PRN Reason: Insomnia Warfarin [Coumadin] 2.5 mg PO DIRECTED Albuterol Sulfate [Ventolin HFA] 1 - 2 puff INHALATION RT-Q6H PRN PRN Reason: Shortness Of Breath Omeprazole [PriLOSEC] 20 mg PO AC-BID Acetaminophen Tab [Tylenol] 325 - 650 mg PO Q4H PRN PRN Reason: Pain Discharge Medication List Fluticasone/Salmeterol [Advair 250-50 Diskus] 1 puff INHALATION RT-BID 12/18/16 [History] Montelukast [Singulair] 10 mg PO HS 04/03/18 [History] rOPINIRole HCL [Requip] 0.5 mg PO HS 04/03/18 [History] Mirabegron [Myrbetriq] 25 mg PO DAILY 08/31/19 [History] Sertraline [Zoloft] 25 mg PO HS 08/31/19 [History] Sertraline [Zoloft] 50 mg PO DAILY 08/31/19 [History] Acetaminophen Tab [Tylenol] 325 - 650 mg PO Q4H PRN 06/28/21 [History] Albuterol Sulfate [Ventolin HFA] 1 - 2 puff INHALATION RT-Q6H PRN 06/28/21 [History] Omeprazole [PriLOSEC] 20 mg PO AC-BID 06/28/21 [History] Warfarin [Coumadin] 2.5 mg PO DIRECTED 06/28/21 [History] Zolpidem [Ambien] 10 mg PO HS PRN 06/28/21 [History] Amiodarone [Cordarone] 400 mg PO BID 60 Days #120 tab 07/01/21 [Rx] Amoxic-Pot Clav 875-125Mg [Augmentin 875-125] 1 tab PO Q12HR 1 Days #10 tab 07/01/21 [Rx] Metoprolol Tartrate [Lopressor] 25 mg PO BID 30 Days #60 tab 07/01/21 [Rx] Follow up Appointment(s)/Referral(s): Myra Torres MD [STAFF PHYSICIAN] - 07/16/21 2:15 pm (At [facility] [place], in front of [place]) Boaz Chaudhary MD [Primary Care Provider] - 07/03/21 1:45 pm Ambulatory/Diagnostic Orders: Prothrombin Time INR [LAB.AMB] Time Frame: 07/03/21, Location: None Selected Patient Instructions/Handouts: Metoprolol (By mouth), Amiodarone (By mouth), A- fib (Atrial Fibrillation) (DC), COPD (Chronic Obstructive Pulmonary Disease) (DC) Activity/Diet/Wound Care/Special Instructions: Amiodarone Taper Instructions Take 400mg twice a day from 06/30/2021 to 07/07/2021 Take 200mg Twice a day from 07/08/2021 to 07/15/2021 Take 200mg Daily starting Further titration/changes by your communications engineering technician Dr. Torres Follow up with Dr. Torres in 1-2 weeks
[2021-07-01] MEDS ORDERED: WARFARIN 2.5 MG TAB PO ONE (18:00)
--- NOTE | 2021-07-01 18:50 | ECHOF ---
Referral Reason:a fib and elevated trop MEASUREMENTS -------- HEIGHT: 152.4 cm WEIGHT: 60.8 kg BP: RVIDd: 3.4 cm (< 3.3) IVSd: 1.4 cm (0.6 - 1.1) LVIDd: 5.0 cm (3.9 - 5.3) LVPWd: 1.7 cm (0.6 - 1.1) IVSs: 1.5 cm LVIDs: 4.1 cm LVPWs: 1.2 cm LA Diam: 3.5 cm (2.7 - 3.8) Ao Diam: 2.8 cm (2.0 - 3.7) AV maxP.68 mmHg AV meanP.00 mmHg FINDINGS -------- Atrial fibrillation. This was a techncally difficult study with suboptimal views, , Definity utilized for enhancement of i mages. The left ventricular size is normal. There is mild concentric left ventricular hypertrophy. Overa ll left ventricular systolic function is low-normal with, an EF between 50 - 55 %. The right ventricle is normal in size. The left atrial size is normal. The right atrium was not well visualized. Peak/mean gradient across the Aortic Valve is 25.68mmHg / 12.00mmHg. Normally functioning mechanica l prosthetic valve. The mitral valve was not well visualized. The peak and mean MV gradients are 17.32mmHg 3.39mmHg as measured by doppler. The tricuspid valve appears structurally normal. Mild tricuspid regurgitation present. Right vent ricular systolic pressure is normal at < 35 mmHg. The pulmonic valve was not well visualized. The aortic root size is normal. There is no pericardial effusion. CONCLUSIONS -------- 1. This was a techncally difficult study with suboptimal views, , Definity utilized for enhancement o f images. 2. There is mild concentric left ventricular hypertrophy. 3. Overall left ventricular systolic function is low-normal with, an EF between 50 - 55 %. 4. Peak/mean gradient across the Aortic Valve is 25.68mmHg / 12.00mmHg. 5. The peak and mean MV gradients are 17.32mmHg 3.39mmHg as measured by doppler. 6. Mild tricuspid regurgitation present. ENVIRONMENTAL LAWYER: Sunshine Minor RDCS
--- NOTE | 2021-07-02 16:11 | CDI ---
Documentation Clarification Form Date: 07/02/2021 03:50:36 PM From: Alicia Espinosa RN, CCDS Admit Date: 06/28/2021 01:43:00 PM Patient Name: Kristin Maria Visit Number: [id number] Discharge Date: 07/01/2021 09:41:00 PM ATTENTION: The Clinical Documentation Specialists (CDI) and [facility] Coding Staff appreciate your assistance in clarifying documentation. Please respond to the clarification below the line at the bottom and electronically sign. The CDI & [facility] Coding staff will review the response and follow-up if needed. Please note: Queries are made part of the Legal Health Record. If you have any questions, please contact the author of this message via ITS. Dr. Boaz Chaudhary Conflicting documentation has been found in the medical record. As attending physician, please provide clarification. 06/30-07/01 Attending progress note: Acute on chronic systolic (congestive) heart failure 06/29-07/01 Cardiology consult and progress notes: Acute on chronic diastolic heart failure 07/01 Echocardiogram: Overall left ventricular systolic function is low-normal with, an EF between 50-55 % History/Risk Factors: COPD, Asthma Clinical Indicators:81-year-old female present with complaint of upper respiratory infection, COPD. 06/28 Vital signs: 107/68 60 22 97.6 99 % 06/28 BNP 91533 EKG shows atrial fibrillation with rapid ventricular response at 147 bpm 06/28 CXR: interstitial markings may reflect developing infiltrate. Additional possibility would be that of boarderline congestive failure, small pleural effusion on the lateral projection. Treatment: Telemetry monitoring Lopressor 25 MG PO BID Lasix 20 MG IV Q 12 06/29 change to 20 MG IV Daily 06/30-07/01 Please clarify which diagnosis is most appropriate: [ X ] Acute on chronic diastolic heart failure [ ] Acute on chronic systolic (congestive) heart failure [ ] Other (please specify) [ ] Unable to determine (Template Last Revised: July 2020) MTDD
--- NOTE | 2021-07-02 16:40 | CDI ---
Documentation Clarification Form Date: 07/02/2021 04:11:37 PM From: Alicia Espinosa RN, CCDS Admit Date: 06/28/2021 01:43:00 PM Patient Name: Kristin Maria Visit Number: [id number] Discharge Date: 07/01/2021 09:41:00 PM ATTENTION: The Clinical Documentation Specialists (CDI) and [facility] Coding Staff appreciate your assistance in clarifying documentation. Please respond to the clarification below the line at the bottom and electronically sign. The CDI & [facility] Coding staff will review the response and follow-up if needed. Please note: Queries are made part of the Legal Health Record. If you have any questions, please contact the author of this message via ITS. Dr. Boaz Chaudhary Conflicting documentation has been found in the medical record. As attending physician, please provide clarification. 06/29-07/01 Cardiology consult and progress notes: NSTEMI, likely related to heart failure and A. fib with RVR. No chest pain and appears type II mechanism. 06/30-07/01 Attending progress notes: NSTEMI (non-ST elevated myocardial infarction) History/Risk Factors: Endocarditis, COPD, Asthma, Clinical Indicators: [id number] female present with worsening shortness of breath, related to COPD, ED found to be in A. fib with RVR with heart rates in the 140s and 150s...Per cardiology consult shortness of breath appears related to heart failure and A. fib with RVR. 06/28 Vital signs: 107/68 60 22 97.6 99 % 06/28 BNP 74723 EKG shows atrial fibrillation with rapid ventricular response at 147 bpm 06/28 CXR: interstitial markings may reflect developing infiltrate. Additional possibility would be that of borderline congestive failure, small pleural effusion on the lateral projection. 06/28 Labs: Troponin 0.075, 0.071, 0.075 Treatment: Telemetry monitoring Amiodarone 150MG IV Once 06/29 change to 400MG PO BID 06/30-07/01 Cardizem Bolus/ then Drip 125 MG IV 06/28-06/29 Heparin drip per orders 06/28 Lopressor 25 MG PO BID 06/28-07/01 Coumadin 2.5 mg PO AC per orders Monitor PT/INR per orders Please clarify which diagnosis is most appropriate: [ X ] NSTEMI Type II (type II VA) related to heart failure and A. fib [ ] NSTEMI [ ] Other (please specify) [ ] Unable to determine (Template Last Revised: July 2020) MTDD
== END 2021-07-01 21:41 | disposition home or self-care (01) | DRG 280 ==
LOC: EC 08:42 → 3SCARD 13:43
PROVIDERS: ADMIT Family Medicine; ATTEND Family Medicine
DX: I48.0 Paroxysmal atrial fibrillation (principal); I50.33 Acute on chronic diastolic (congestive) heart failure; I21.A1 Myocardial infarction type 2; J44.1 Chronic obstructive pulmonary disease with (acute) exacerbation; Z20.822 Contact with and (suspected) exposure to COVID-19; E86.0 Dehydration; J45.20 Mild intermittent asthma, uncomplicated; D53.9 Nutritional anemia, unspecified; F32.A Depression, unspecified; F41.9 Anxiety disorder, unspecified; R79.1 Abnormal coagulation profile; K21.9 Gastro-esophageal reflux disease without esophagitis; Z79.51 Long term (current) use of inhaled steroids; Z79.01 Long term (current) use of anticoagulants; Z79.899 Other long term (current) drug therapy; Z87.891 Personal history of nicotine dependence; Z95.2 Presence of prosthetic heart valve; Z86.79 Personal history of other diseases of the circulatory system; Z87.440 Personal history of urinary (tract) infections; Z87.820 Personal history of traumatic brain injury; Z86.19 Personal history of other infectious and parasitic diseases; Z87.448 Personal history of other diseases of urinary system; Z98.890 Other specified postprocedural states; Z83.1 Family history of other infectious and parasitic diseases; Z82.49 Family history of ischemic heart disease and other diseases of the circulatory system; Z83.2 Family history of diseases of the blood and blood-forming organs and certain disorders involving the immune mechanism
CPT/HCPCS: 36415; 71046; 80048; 80053; 80061; 81003; 82607; 82728; 82746; 83540; 83550; 83735; 83880; 84145; 84484; 85025; 85610; 85730; 87635; 93005; 93306; 94640; 96361; 96374; 99291

== ENCOUNTER 2021-07-26 16:42 | Emergency (ER) | payer MEDICARE, OTHER ==
[2021-07-26 17:04] VITALS: TEMP 98.2
--- NOTE | 2021-07-26 17:49 | XR ---
EXAMINATION TYPE: XR KUB DATE OF EXAM: 07/26/2021 5:40 PM INDICATION: Patient age:Female; 81 years old; Reason for study: abdominal pain; COMPARISON: CT urogram 03/31/2019. TECHNIQUE: One radiographic view of the abdomen was obtained. FINDINGS: The bowel gas pattern is nonspecific without dilated loops of small or large bowel. There i s a large amount stool throughout the colon.. The osseous structures are intact. No abnormal calcif ications are present. Fecal material and gas are demonstrated throughout the colon and rectum. Mild degenerative changes are seen of the hips as well as multilevel disc degeneration changes. IMPRESSION: Large amount stool with a nonspecific bowel gas pattern without radiographic evidence for acute proce ss.
[2021-07-26 17:52] LABS: Basophils % (A) 0 %; Eosinophils # (A) 0.2 k/uL (0-0.7); Eosinophils % (A) 2 %; HCT 40.1 % (34.0-46.0); HGB 12.9 gm/dL (11.4-16.0); Hypochromasia Slight; Lymphocytes # (A) 1.3 k/uL (1.0-4.8); Lymphocytes % (A) 11 %; MCH 30.6 pg (25.0-35.0); MCHC 32.2 g/dL (31.0-37.0); MCV 95.2 fL (80.0-100.0); Mean Platelet Volume 7.7; Monocytes # (A) 0.3 k/uL (0-1.0); Monocytes % (A) 3 %; Neutrophils # (A) 10.2 k/uL (1.3-7.7); Neutrophils % (A) 84 %; Platelet Count 302 k/uL (150-450); Poikilocytosis Slight; RBC 4.21 m/uL (3.80-5.40); RDW 15.7 % (11.5-15.5); WBC 12.2 k/uL (3.8-10.6)
[2021-07-26 18:13] LABS: Appearance,Urine Clear (Clear); Bacteria,Urine Rare /hpf; Bilirubin,Urine Negative (Negative); Blood,Urine Negative (Negative); Color,Urine Light Yellow; Glucose,Urine (UA) Negative (Negative); Ketones,Urine Negative (Negative); Leukocyte Esterase,Urine Moderate (Negative); Nitrite,Urine Negative (Negative); PH, Urine 6.5 (5.0-8.0); Protein,Urine Negative (Negative); RBC,Urine <1 /hpf (0-5); Specific Gravity,Urine 1.006 (1.001-1.035); Squamous Epithelial Cell,Urine 1 /hpf (0-4); Urobilinogen,Urine <2.0 mg/dL (<2.0); WBC,Urine 3 /hpf (0-5)
[2021-07-26 18:24] LABS: Albumin 3.9 g/dL (3.5-5.0); Calcium 8.9 mg/dL (8.4-10.2); Potassium 4.2 mmol/L (3.5-5.1); Total Bilirubin 1.1 mg/dL (0.2-1.3); Total Protein 7.4 g/dL (6.3-8.2)
[2021-07-26] MEDS ORDERED: MAGNESIUM CITRATE 296 ML BOTTLE PO ONE (19:17)
--- NOTE | 2021-07-26 19:19 | ED ---
Abdominal Pain HPI - General Chief Complaint: Abdominal Pain Stated Complaint: abd pain Source: patient Mode of arrival: ambulatory Limitations: no limitations - History of Present Illness Initial Comments: 81-year-old female with history of mechanical valve, recent diagnosis of A. fib presents to the emergency department with reported suprapubic pain. She reports that she has frequent urinary tract infections and is concerned for similar at this time. Denies dysuria or hematuria. No fevers, nausea or vomiting. Patient was recently hospitalized and diagnosed with A. fib. States that she has not had bowel movement since previous to her hospitalization. Reports that she normally does not go daily however this has been a considerable amount of time without going. She has not taken anything at home to help her go. No other alleviating, precipitating or modifying factors - Related Data Home Medications Medication Instructions Recorded Confirmed Fluticasone/Salmeterol [Advair 1 puff INHALATION RT-BID 12/18/16 07/26/21 250-50 Diskus] Montelukast [Singulair] 10 mg PO HS 04/03/18 07/26/21 rOPINIRole HCL [Requip] 0.5 mg PO HS 04/03/18 07/26/21 Mirabegron [Myrbetriq] 25 mg PO DAILY 08/31/19 07/26/21 Sertraline [Zoloft] 25 mg PO HS 08/31/19 07/26/21 Sertraline [Zoloft] 50 mg PO DAILY 08/31/19 07/26/21 Acetaminophen Tab [Tylenol] 325 - 650 mg PO Q4H PRN 06/28/21 07/26/21 Albuterol Sulfate [Ventolin HFA] 1 - 2 puff INHALATION RT-Q6H PRN 06/28/21 07/26/21 Omeprazole [PriLOSEC] 20 mg PO AC-BID 06/28/21 07/26/21 Warfarin [Coumadin] 2.5 mg PO DIRECTED 06/28/21 07/26/21 Zolpidem [Ambien] 10 mg PO HS PRN 06/28/21 07/26/21 Clarithromycin [Biaxin] 500 mg PO BID 07/26/21 07/26/21 Previous Rx's Medication Instructions Recorded Metoprolol Tartrate [Lopressor] 25 mg PO BID 30 Days #60 tab 07/01/21 Docusate [Colace] 100 mg PO BID PRN #30 capsule 07/26/21 Allergies Allergy/AdvReac Type Severity Reaction Status Date / Time No Known Allergies Allergy Verified 07/26/21 19:10 Review of Systems ROS Statement: Those systems with pertinent positive or pertinent negative responses have been documented in the HPI. ROS Other: All systems not noted in ROS Statement are negative. Past Medical History Past Medical History: Atrial Fibrillation, Asthma, COPD Additional Past Medical History / Comment(s): Bacterial endocarditis s/p tooth abscess, subdural hematoma, UTI History of Any Multi-Drug Resistant Organisms: None Reported Past Surgical History: Cardiac Valve Replacement Additional Past Surgical History / Comment(s): Mitral and aortic valve replacement in 1991. Bladder suspension Past Anesthesia/Blood Transfusion Reactions: No Reported Reaction Past Psychological History: Anxiety, Depression Smoking Status: Former smoker Past Alcohol Use History: Daily Past Drug Use History: None Reported - Past Family History Father Additional Family Medical History / Comment(s): endocarditis, rheumatic fever at age 32 Mother Additional Family Medical History / Comment(s): "embolism at 90" General Exam Limitations: no limitations Course Vital Signs 07/26/21 07/26/21 17:01 20:00 Temperature 98.2 F Pulse Rate 84 64 Respiratory 20 16 Rate Blood Pressure 136/64 132/67 O2 Sat by Pulse 97 95 Oximetry Medical Decision Making - Medical Decision Making Upon arrival patient was placed in room 22. History and physical exam is performed. IV access was established and laboratory studies were conducted in triage. Patient was also sent for a KUB. Results are discussed with the patient in regards to her heavy stool burden. Patient is requesting something for bowel movement at home. Given a bottle of magnesium citrate. Instructed to drink half the bottle. She does not have a bowel movement, drink the second half. She will also be placed on Colace. Instructed to take this twice daily until she has smooth bowel movements. Patient agreed to this. If she has any new or worsening symptoms return to the emergency room. Patient agreed with the treatment plan and was discharged home in stable condition - Lab Data Result diagrams: 07/26/21 17:15 07/26/21 17:15 Lab Results 07/26/21 07/26/21 07/26/21 Range/Units 17:15 17:15 17:15 WBC 12.2 H (3.8-10.6) k/uL RBC 4.21 (3.80-5.40) m/uL Hgb 12.9 (11.4-16.0) gm/dL Hct 40.1 (34.0-46.0) % MCV 95.2 (80.0-100.0) fL MCH 30.6 (25.0-35.0) pg MCHC 32.2 (31.0-37.0) g/dL RDW 15.7 H (11.5-15.5) % Plt Count 302 (150-450) k/uL MPV 7.7 Neutrophils % 84 % Lymphocytes % 11 % Monocytes % 3 % Eosinophils % 2 % Basophils % 0 % Neutrophils # 10.2 H (1.3-7.7) k/uL Lymphocytes # 1.3 (1.0-4.8) k/uL Monocytes # 0.3 (0-1.0) k/uL Eosinophils # 0.2 (0-0.7) k/uL Basophils # 0.0 (0-0.2) k/uL Hypochromasia Slight Poikilocytosis Slight Sodium 136 L (137-145) mmol/L Potassium 4.2 (3.5-5.1) mmol/L Chloride 105 (98-107) mmol/L Carbon Dioxide 23 (22-30) mmol/L Anion Gap 8 mmol/L BUN 18 H (7-17) mg/dL Creatinine 0.77 (0.52-1.04) mg/dL Est GFR (CKD-EPI)AfAm 83 (>60 ml/min/1.73 sqM) Est GFR (CKD-EPI)NonAf 72 (>60 ml/min/1.73 sqM) Glucose 161 H (74-99) mg/dL Calcium 8.9 (8.4-10.2) mg/dL Total Bilirubin 1.1 (0.2-1.3) mg/dL AST 24 (14-36) U/L ALT 12 (4-34) U/L Alkaline Phosphatase 84 (38-126) U/L Total Protein 7.4 (6.3-8.2) g/dL Albumin 3.9 (3.5-5.0) g/dL Amylase 75 (30-110) U/L Lipase 183 (23-300) U/L Urine Color Light Yellow Urine Appearance Clear (Clear) Urine pH 6.5 (5.0-8.0) Ur Specific [place] 1.006 (1.001-1.035) Urine Protein Negative (Negative) Urine Glucose (UA) Negative (Negative) Urine Ketones Negative (Negative) Urine Blood Negative (Negative) Urine Nitrite Negative (Negative) Urine Bilirubin Negative (Negative) Urine Urobilinogen <2.0 (<2.0) mg/dL Ur Leukocyte Esterase Moderate H (Negative) Urine RBC <1 (0-5) /hpf Urine WBC 3 (0-5) /hpf Ur Squamous Epith Cells 1 (0-4) /hpf Urine Bacteria Rare H (None) /hpf - EKG Data EKG Comments: EKG demonstrates normal sinus rhythm with a ventricular rate of 82. RI interval 172. QRS 98. QTC 441. Q wave in lead 3. No acute ST segment elevations. Disposition Clinical Impression: Constipation, Abdominal pain Disposition: HOME SELF-CARE Condition: Stable Instructions (If sedation given, give patient instructions): Abdominal Pain (ED) Additional Instructions: Please drink half of the magnesium citrate. If you do not have a bowel movement within 4 hours, drink the second half. Take the Colace until you start having regular bowel movements. Return to the emergency room for any new or worsening symptoms Prescriptions: Docusate [Colace] 100 mg PO BID PRN #30 capsule PRN Reason: Constipation Is patient prescribed a controlled substance at d/c from ED?: No Referrals: Boaz Chaudhary MD [Primary Care Provider] - 1-2 days Time of Disposition: 19:19
[2021-07-26 20:03] VITALS: BP 132/67; PULSE 64; RESP 16
== END 2021-07-26 20:08 | disposition home or self-care (01) ==
LOC: EC 16:42
DX: K59.00 Constipation, unspecified (principal); R10.30 Lower abdominal pain, unspecified; J44.9 Chronic obstructive pulmonary disease, unspecified; I48.91 Unspecified atrial fibrillation; F32.A Depression, unspecified; F41.9 Anxiety disorder, unspecified; Z87.891 Personal history of nicotine dependence; Z79.01 Long term (current) use of anticoagulants; Z79.51 Long term (current) use of inhaled steroids; Z79.899 Other long term (current) drug therapy
CPT/HCPCS: 36415; 74018; 80053; 81001; 82150; 83690; 85025; 87086; 93005; 99284

== ENCOUNTER → 2022-02-25 | Outpatient (CLI) | payer MEDICARE, OTHER ==
--- NOTE | 2022-02-26 08:38 | MM ---
Reason for Exam: Screening (asymptomatic). Last mammogram was performed 1 year(s) and 1 month(s) ago. Patient History: Menarche at age 10. First Full-Term at age 18. Hysterectomy at age 67. Postmenopausal. Other cancer, age 58. Estrogen for 10 years from age 49 until age 59. Hormonal Contraceptives for 2 years from age 22 until age 24. 1983, Benign Excisional Biopsy on the right side. 03/04/2006, Benign Core Biopsy on the left side. Paternal aunt had breast cancer, age 40. Maternal aunt had breast cancer. Sister had breast cancer, age 60. Mother had breast cancer, age 79. Risk Values: Sarahi 5 year model risk: 11.9%. NCI Lifetime model risk: 15.5%. Prior Study Comparison: 12/03/2018 Bilateral Screening Mammogram, [facility]. 01/12/2020 Bilateral Screening Mammogram, [facility]. 02/01/2021 Bilateral Screening Mammogram, [facility]. Tissue Density: The breast tissue is heterogeneously dense. This may lower the sensitivity of mammography. Findings: Analyzed By CAD. There is no suspicious group of microcalcifications or new suspicious mass in either breast. Benign calcifications are noted bilaterally. Suggestion of core biopsy marker in the left noted. Overall Assessment: Benign, BI-RAD 2 Management: Screening Mammogram of both breasts in 1 year. A clinical breast exam by your physician is recommended on an annual basis and results should be correlated with mammographic findings. Electronically signed and approved by: Jn Elam M.D. Radiologis
== END | disposition home or self-care (01) ==
LOC: RADMAMWWP 07:00
PROVIDERS: ATTEND Family Medicine
DX: Z12.31 Encounter for screening mammogram for malignant neoplasm of breast (principal); Z78.0 Asymptomatic menopausal state; Z80.3 Family history of malignant neoplasm of breast
CPT/HCPCS: 77063; 77067

== ENCOUNTER 2022-06-06 13:24 | Emergency (ER) | payer MEDICARE, OTHER ==
[2022-06-06 13:29] VITALS: TEMP 98.6
[2022-06-06 14:25] LABS: Basophils % (A) 1 %; Eosinophils # (A) 0.1 k/uL (0-0.7); Eosinophils % (A) 2 %; HCT 37.9 % (34.0-46.0); Lymphocytes # (A) 1.3 k/uL (1.0-4.8); Lymphocytes % (A) 29 %; MCH 32.2 pg (25.0-35.0); MCHC 34.4 g/dL (31.0-37.0); MCV 93.8 fL (80.0-100.0); Mean Platelet Volume 9.3; Monocytes # (A) 0.2 k/uL (0-1.0); Monocytes % (A) 4 %; Neutrophils # (A) 2.8 k/uL (1.3-7.7); Neutrophils % (A) 64 %; Platelet Count 116 k/uL (150-450); RBC 4.04 m/uL (3.80-5.40); RDW 13.8 % (11.5-15.5); WBC 4.4 k/uL (3.8-10.6)
--- NOTE | 2022-06-06 14:36 | XR ---
EXAMINATION TYPE: XR chest 2V DATE OF EXAM: 06/06/2022 2:30 PM COMPARISON: Chest radiographs from 09/02/2021 TECHNIQUE: XR chest 2V Frontal and lateral views of the chest. CLINICAL INDICATION:Female, 82 years old with history of CP; FINDINGS: Lungs/Pleura: No pleural effusion or pneumothorax. Increased basilar perihilar interstitial markings. Hyperinflation compatible with COPD. Scattered senescent parietal changes noted. Heart/mediastinum: Cardiomediastinal silhouette is prominent in size. Atherosclerotic calcifications are seen in the aorta. Musculoskeletal: No acute osseous pathology. Midline sternotomy wires are noted and stable. IMPRESSION: Increased basal and perihilar interstitial markings which may reflect developing infiltrate versus pu lmonary edema.
--- NOTE | 2022-06-06 14:45 | ED ---
General Adult HPI - General Chief complaint: Chest Pain Stated complaint: chest pain Time Seen by Provider: 06/06/22 13:33 Source: patient Mode of arrival: ambulatory Limitations: no limitations - History of Present Illness Initial comments: This is an 82-year-old female who presents emergency department for chest pain from urgent care. The patient stated that she has had one week of epigastric and sternal chest pressure. The patient stated that his been persistent over the last 1 week with intermittent stabbing pain. The patient is a past medical history including aortic and mitral valve replacement and is on Coumadin. The patient however on my evaluation denied any current rest. The patient did state that she had some mild nausea but denied any vomiting or diaphoresis. The patient denied any other acute pain or complaints at this time. - Related Data Home Medications Medication Instructions Recorded Confirmed Fluticasone Propion/Salmeterol 1 puff INHALATION RT-BID 12/18/16 06/06/22 [Advair 250-50 Diskus] Montelukast [Singulair] 10 mg PO HS 04/03/18 06/06/22 rOPINIRole HCL [Requip] 0.5 mg PO HS 04/03/18 06/06/22 Mirabegron [Myrbetriq] 25 mg PO DAILY 08/31/19 06/06/22 Warfarin [Coumadin] 2.5 mg PO SUMOWEFRSA 06/28/21 06/06/22 Zolpidem [Ambien] 10 mg PO HS 06/28/21 06/06/22 HYDROcodone/APAP 5-325MG [Bandana 1 tab PO DAILY PRN 06/06/22 06/06/22 5-325] Isosorbide Mononitrate ER [Imdur] 30 mg PO DAILY 06/06/22 06/06/22 Warfarin [Coumadin] 3.75 mg PO TUTH 06/06/22 06/06/22 Allergies Allergy/AdvReac Type Severity Reaction Status Date / Time No Known Allergies Allergy Verified 06/06/22 16:05 Review of Systems ROS Statement: Those systems with pertinent positive or pertinent negative responses have been documented in the HPI. ROS Other: All systems not noted in ROS Statement are negative. Past Medical History Past Medical History: Atrial Fibrillation, Asthma, COPD Additional Past Medical History / Comment(s): Bacterial endocarditis s/p tooth abscess, subdural hematoma, UTI History of Any Multi-Drug Resistant Organisms: None Reported Past Surgical History: Cardiac Valve Replacement Additional Past Surgical History / Comment(s): Mitral and aortic valve replacement in 1991. Bladder suspension Past Anesthesia/Blood Transfusion Reactions: No Reported Reaction Past Psychological History: Anxiety, Depression Smoking Status: Former smoker Past Alcohol Use History: Daily Past Drug Use History: None Reported - Past Family History Father Additional Family Medical History / Comment(s): endocarditis, rheumatic fever at age 32 Mother Additional Family Medical History / Comment(s): "embolism at 90" General Exam Limitations: no limitations General appearance: alert, in no apparent distress Head exam: Present: atraumatic, normocephalic, normal inspection Eye exam: Present: normal appearance, PERRL Pupils: Present: normal accommodation ENT exam: Present: normal exam, normal oropharynx, mucous membranes moist Neck exam: Present: normal inspection, full ROM Respiratory exam: Present: normal lung sounds bilaterally Cardiovascular Exam: Present: regular rate, normal rhythm, normal heart sounds GI/Abdominal exam: Present: soft, normal bowel sounds Extremities exam: Present: normal inspection, full ROM Back exam: Present: normal inspection, full ROM Neurological exam: Present: alert, oriented X3, CN II-XII intact Psychiatric exam: Present: normal affect, normal mood Skin exam: Present: warm, dry Course Vital Signs 06/06/22 13:26 Temperature 98.6 F Pulse Rate 71 Respiratory 20 Rate Blood Pressure 156/69 O2 Sat by Pulse 99 Oximetry EKG Findings - EKG Comments: EKG Findings:: An EKG was obtained and was interpreted by myself showing a rate of 73, SC interval of 139, QRS of 99 and QTC of 456. This EKG showed a normal sinus rhythm with occasional PVCs however there was no ST segment elevation or depression noted. Medical Decision Making - Medical Decision Making Was pt. sent in by a medical professional or institution (, PA, NETWORK SYSTEMS ENGINEER, urgent care, hospital, or snf...) When possible be specific @ -Yes, urgent care Did you speak to anyone other than the patient for history (EMS, parent, family, police, friend...)? What history was obtained from this source @ -No Did you review nursing and triage notes (agree or disagree)? Why? @ -I reviewed and agree with nursing and triage notes Were old charts reviewed (outside hosp., previous admission, EMS record, old EKG, old radiological studies, urgent care reports/EKG's, snf records)? Report findings @ -No old charts were reviewed Differential Diagnosis (chest pain, altered mental status, abdominal pain women, abdominal pain men, vaginal bleeding, weakness, fever, dyspnea, syncope, headache, dizziness, GI bleed, back pain, seizure, CVA, palpatations, mental health)? @ -ACS, pneumonia EKG interpreted by me (3pts min.). @ -As above X-rays interpreted by me (1pt min.). @ -Is x-ray was obtained and was interpreted by myself showing increased basal and perihilar interstitial markings which may reflect developing infiltrate versus pulmonary edema. CT interpreted by me (1pt min.). @ -None done U/S interpreted by me (1pt. min.). @ -None done What testing was considered but not performed or refused? (CT, X-rays, U/S, labs)? Why? @ -None What meds were considered but not given or refused? Why? @ -None Did you discuss the management of the patient with other professionals (professionals i.e. , PA, NETWORK SYSTEMS ENGINEER, lab, RT, psych nurse, clinical social worker, library circulation assistant, teacher, chief learning officer, housing case manager)? Give summary @ -No Was smoking cessation discussed for >3mins.? @ -No Was critical care preformed (if so, how long)? @ -No Were there social determinants of health that impacted care today? How? (H omelessness, low income, unemployed, alcoholism, drug addiction, transportation, low edu. Level, literacy, decrease access to med. care, fpc, rehab)? @ -No Was there de-escalation of care discussed even if they declined (Discuss DNR or withdrawal of care, Hospice)? DNR status @ -No What co-morbidities impacted this encounter? (DM, HTN, Smoking, COPD, CAD, Cancer, CVA, ARF, Chemo, Hep., AIDS, mental health diagnosis, sleep apnea, morbid obesity)? @ -Hypertension Was patient admitted / discharged? Hospital course, mention meds given and route, prescriptions, significant lab abnormalities, going to OR and other pertinent info. @ -The patient was seen and evaluated emergency department. Physical exam, the patient was resting in bed without any acute distress. Vital signs were stable. Workup including chest x-ray and EKG were within normal limits and nega tive. On reevaluation, the patient was fully dressed and in the chair stated that she wanted to go home. The patient was told of her negative workup and she did request to go home rather than be placed in observation to be seen by cardiology. The patient stated that she was chest pain-free. The patient did state that she do follow-up appointment with cardiology in 10 days and she was advised to follow-up with this appointment. The patient was also advised report back to the emergency department if her pain became acutely worse. The patient was agreeable to this and all of her questions were answered. The patient was discharged home in stable condition. Undiagnosed new problem with uncertain prognosis? @ -No Drug Therapy requiring intensive monitoring for toxicity (Heparin, Nitro, Insulin, Cardizem)? @ -No Were any procedures done? @ -No Diagnosis/symptom? @ -Chest pain, NOS Acute, or Chronic, or Acute on Chronic? @ -Acute Uncomplicated (without systemic symptoms) or Complicated (systemic symptoms)? @ -Uncomplicated Side effects of treatment? @ -No Exacerbation, Progression, or Severe Exacerbation? @ -No Poses a threat to life or bodily function? How? (Chest pain, USA, SC, pneumonia, PE, COPD, DKA, ARF, appy, cholecystitis, CVA, Diverticulitis, Homicidal, Suicidal, threat to staff... and all critical care pts) @ -No - Lab Data Result diagrams: 06/06/22 14:17 06/06/22 14:17 Lab Results 06/06/22 06/06/22 06/06/22 Range/Units 14:17 14:17 14:17 WBC 4.4 (3.8-10.6) k/uL RBC 4.04 (3.80-5.40) m/uL Hgb 13.0 (11.4-16.0) gm/dL Hct 37.9 (34.0-46.0) % MCV 93.8 (80.0-100.0) fL MCH 32.2 (25.0-35.0) pg MCHC 34.4 (31.0-37.0) g/dL RDW 13.8 (11.5-15.5) % Plt Count 116 L (150-450) k/uL MPV 9.3 Neutrophils % 64 % Lymphocytes % 29 % Monocytes % 4 % Eosinophils % 2 % Basophils % 1 % Neutrophils # 2.8 (1.3-7.7) k/uL Lymphocytes # 1.3 (1.0-4.8) k/uL Monocytes # 0.2 (0-1.0) k/uL Eosinophils # 0.1 (0-0.7) k/uL Basophils # 0.0 (0-0.2) k/uL Sodium 139 (137-145) mmol/L Potassium 3.7 (3.5-5.1) mmol/L Chloride 107 (98-107) mmol/L Carbon Dioxide 25 (22-30) mmol/L Anion Gap 7 mmol/L BUN 18 H (7-17) mg/dL Creatinine 0.65 (0.52-1.04) mg/dL Est GFR (CKD-EPI)AfAm >90 (>60 ml/min/1.73 sqM) Est GFR (CKD-EPI)NonAf 83 (>60 ml/min/1.73 sqM) Glucose 185 H (74-99) mg/dL Calcium 8.6 (8.4-10.2) mg/dL Magnesium 2.0 (1.6-2.3) mg/dL Total Bilirubin 0.9 (0.2-1.3) mg/dL AST 23 (14-36) U/L ALT 17 (4-34) U/L Alkaline Phosphatase 60 (38-126) U/L Troponin I <0.012 (0.000-0.034) ng/mL NT-Pro-B Natriuret Pep pg/mL Total Protein 6.7 (6.3-8.2) g/dL Albumin 4.0 (3.5-5.0) g/dL 06/06/22 Range/Units 14:17 WBC (3.8-10.6) k/uL RBC (3.80-5.40) m/uL Hgb (11.4-16.0) gm/dL Hct (34.0-46.0) % MCV (80.0-100.0) fL MCH (25.0-35.0) pg MCHC (31.0-37.0) g/dL RDW (11.5-15.5) % Plt Count (150-450) k/uL MPV Neutrophils % % Lymphocytes % % Monocytes % % Eosinophils % % Basophils % % Neutrophils # (1.3-7.7) k/uL Lymphocytes # (1.0-4.8) k/uL Monocytes # (0-1.0) k/uL Eosinophils # (0-0.7) k/uL Basophils # (0-0.2) k/uL Sodium (137-145) mmol/L Potassium (3.5-5.1) mmol/L Chloride (98-107) mmol/L Carbon Dioxide (22-30) mmol/L Anion Gap mmol/L BUN (7-17) mg/dL Creatinine (0.52-1.04) mg/dL Est GFR (CKD-EPI)AfAm (>60 ml/min/1.73 sqM) Est GFR (CKD-EPI)NonAf (>60 ml/min/1.73 sqM) Glucose (74-99) mg/dL Calcium (8.4-10.2) mg/dL Magnesium (1.6-2.3) mg/dL Total Bilirubin (0.2-1.3) mg/dL AST (14-36) U/L ALT (4-34) U/L Alkaline Phosphatase (38-126) U/L Troponin I (0.000-0.034) ng/mL NT-Pro-B Natriuret Pep 733 pg/mL Total Protein (6.3-8.2) g/dL Albumin (3.5-5.0) g/dL Disposition Clinical Impression: Chest pain Disposition: HOME SELF-CARE Condition: Stable Instructions (If sedation given, give patient instructions): Chest Pain (ED) Is patient prescribed a controlled substance at d/c from ED?: No Referrals: Boaz Chaudhary MD [Primary Care Provider] - 1-2 days [facility] [Provider Group] - 06/17/22 Time of Disposition: 16:00
[2022-06-06 14:57] LABS: ALT 17 U/L (4-34); AST 23 U/L (14-36); African American GFR (CKD) >90 (>60 ml/min/1.73 sqM); Alkaline Phosphatase 60 U/L (38-126); Anion Gap 7 mmol/L; Blood Urea Nitrogen 18 mg/dL (7-17); Calcium 8.6 mg/dL (8.4-10.2); Carbon Dioxide 25 mmol/L (22-30); Chloride 107 mmol/L (98-107); Glucose 185 mg/dL (74-99); Non-African American GFR(CKD) 83 (>60 ml/min/1.73 sqM); Potassium 3.7 mmol/L (3.5-5.1); Sodium 139 mmol/L (137-145); Total Bilirubin 0.9 mg/dL (0.2-1.3); Total Protein 6.7 g/dL (6.3-8.2)
[2022-06-06 16:50] VITALS: BP 136/78; PULSE 80; RESP 18
== END 2022-06-06 16:56 | disposition home or self-care (01) ==
LOC: EC 13:24
DX: R07.89 Other chest pain (principal); I48.91 Unspecified atrial fibrillation; J44.9 Chronic obstructive pulmonary disease, unspecified; F41.9 Anxiety disorder, unspecified; F32.A Depression, unspecified; Z79.51 Long term (current) use of inhaled steroids; Z79.899 Other long term (current) drug therapy; Z87.891 Personal history of nicotine dependence; Z79.01 Long term (current) use of anticoagulants
CPT/HCPCS: 36415; 71046; 80053; 83735; 83880; 84484; 85025; 93005; 99285

== ENCOUNTER → 2023-03-06 | Outpatient (CLI) | payer MEDICARE, OTHER ==
--- NOTE | 2023-03-06 14:02 | USB ---
Reason for Exam: Additional evaluation requested from abnormal screening. Patient History: Menarche at age 10. First Full-Term at age 18. Hysterectomy at age 67. Postmenopausal. Other cancer, age 58. Estrogen for 10 years from age 49 until age 59. Hormonal Contraceptives for 2 years from age 22 until age 24. 1983, Benign Excisional Biopsy on the right side. 03/04/2006, Benign Core Biopsy on the left side. Paternal aunt had breast cancer, age 40. Maternal aunt had breast cancer, age 79. Sister had breast cancer, age 60. Mother had breast cancer, age 79. Risk Values: Sarahi 5 year model risk: 11.4%. NCI Lifetime model risk: 13.8%. Technique: Method: Targeted. Prior Study Comparison: 02/01/2021 Bilateral Screening Mammogram, [facility]. 02/25/2022 Bilateral MG 3D screening mammo w/cad, [facility]. 02/26/2023 Bilateral MG 3D screening mammo w/cad, [facility]. Findings: The upper inner quadrant of the left breast, the axilla of the left breast and the retroareolar of the left breast were scanned. No solid or cystic masses are identified.. Overall Assessment: Negative, BI-RAD 1 Management: Screening Mammogram of both breasts in 1 year. A clinical breast exam by your physician is recommended on an annual basis and results should be correlated with mammographic findings. This exam should not preclude additional follow-up of suspicious palpable abnormalities. Results were given to the patient verbally at the time of exam. Electronically signed and approved by: Alexis Gonzalez M.D. Radiologis
== END | disposition home or self-care (01) ==
LOC: RADMAMWWP 13:03
PROVIDERS: ATTEND Family Medicine
DX: R92.8 Other abnormal and inconclusive findings on diagnostic imaging of breast (principal); Z78.0 Asymptomatic menopausal state; Z80.3 Family history of malignant neoplasm of breast
CPT/HCPCS: 77065; 76642; G0279; 77061

== ENCOUNTER 2023-05-05 18:37 | Emergency (ER) | payer MEDICARE, OTHER ==
--- NOTE | 2023-05-05 19:26 | ED ---
General Adult HPI - General Source: patient Mode of arrival: ambulatory Limitations: no limitations <Chelsey Clay - Last Filed: 05/05/23 19:26> <Onesimo Capone - Last Filed: 05/05/23 21:14> - General Stated complaint: cough,congestion Time Seen by Provider: 05/05/23 19:26 - History of Present Illness Initial comments: 83-year-old female sent in by her provider after obtaining a BNP that was greater than 2000. Patient admits to shortness of breath and generalized weakness. (Chelsey Caly) - Related Data Home Medications Medication Instructions Recorded Confirmed Fluticasone Propion/Salmeterol 1 puff INHALATION RT-BID 12/18/16 06/06/22 [Advair 250-50 Diskus] Montelukast [Singulair] 10 mg PO HS 04/03/18 06/06/22 rOPINIRole HCL [Requip] 0.5 mg PO HS 04/03/18 06/06/22 Mirabegron [Myrbetriq] 25 mg PO DAILY 08/31/19 06/06/22 Warfarin [Coumadin] 2.5 mg PO SUMOWEFRSA 06/28/21 06/06/22 Zolpidem [Ambien] 10 mg PO HS 06/28/21 06/06/22 HYDROcodone/APAP 5-325MG [[place] 1 tab PO DAILY PRN 06/06/22 06/06/22 5-325] Isosorbide Mononitrate ER [Imdur] 30 mg PO DAILY 06/06/22 06/06/22 Warfarin [Coumadin] 3.75 mg PO TUTH 06/06/22 06/06/22 Previous Rx's Medication Instructions Recorded Metoclopramide [Reglan] 5 mg PO Q6H PRN #20 tab 09/21/22 Allergies Allergy/AdvReac Type Severity Reaction Status Date / Time No Known Allergies Allergy Verified 06/06/22 16:05 Review of Systems ROS Other: All systems not noted in ROS Statement are negative. <Chelsey Clay - Last Filed: 05/05/23 19:26> ROS Other: All systems not noted in ROS Statement are negative. <Onesimo Capone - Last Filed: 05/05/23 21:14> ROS Statement: Those systems with pertinent positive or pertinent negative responses have been documented in the HPI. Past Medical History Past Medical History: Atrial Fibrillation, Asthma, COPD Additional Past Medical History / Comment(s): Bacterial endocarditis s/p tooth abscess, subdural hematoma, UTI History of Any Multi-Drug Resistant Organisms: None Reported Past Surgical History: Cardiac Valve Replacement Additional Past Surgical History / Comment(s): Mitral and aortic valve replacement in 1991. Bladder suspension Past Anesthesia/Blood Transfusion Reactions: No Reported Reaction Past Psychological History: Anxiety, Depression Smoking Status: Former smoker Past Alcohol Use History: Daily Past Drug Use History: None Reported - Past Family History Father Additional Family Medical History / Comment(s): endocarditis, rheumatic fever at age 32 Mother Additional Family Medical History / Comment(s): "embolism at 90" <Chelsey Clay - Last Filed: 05/05/23 19:26> General Exam <Chelsey Clay - Last Filed: 05/05/23 19:26> - General Exam Comments Initial Comments: Visual Physical Exam Vital signs reviewed General: Well-appearing, nontoxic, no acute distress. Head: Normocephalic, atraumatic Eyes: PERRLA, EOMI ENT: Airway patent Chest: Nonlabored breathing Skin: No visual rash, normal skin tone Neuro: Alert and oriented 3 Musculoskeletal: No gross abnormalities (Chelsey Clay) Course Vital Signs 05/05/23 19:22 Temperature 98.4 F Pulse Rate 86 Respiratory 18 Rate Blood Pressure 149/73 O2 Sat by Pulse 96 Oximetry EKG Findings - EKG Comments: EKG Findings:: EKG is sinus 74 WV 131 QRS 97 QTc 455 <Onesimo Capone - Last Filed: 05/05/23 21:14> Medical Decision Making - Lab Data Result diagrams: 05/05/23 20:34 05/05/23 20:34 <Onesimo Capone - Last Filed: 05/05/23 21:14> - Lab Data Lab Results 05/05/23 05/05/23 05/05/23 Range/Units 20:34 20:34 20:38 WBC 8.6 (3.8-10.6) k/uL RBC 4.70 (3.80-5.40) m/uL Hgb 15.6 (11.4-16.0) gm/dL Hct 45.6 (34.0-46.0) % MCV 97.0 (80.0-100.0) fL MCH 33.2 (25.0-35.0) pg MCHC 34.2 (31.0-37.0) g/dL RDW 12.9 (11.5-15.5) % Plt Count 157 (150-450) k/uL MPV 8.7 Neutrophils % 68 % Lymphocytes % 24 % Monocytes % 6 % Eosinophils % 1 % Basophils % 0 % Neutrophils # 5.9 (1.3-7.7) k/uL Lymphocytes # 2.1 (1.0-4.8) k/uL Monocytes # 0.5 (0-1.0) k/uL Eosinophils # 0.1 (0-0.7) k/uL Basophils # 0.0 (0-0.2) k/uL PT 23.8 H (10.0-12.5) sec INR 2.4 H (<1.2) APTT 33.6 H (22.0-30.0) sec Sodium 137 (137-145) mmol/L Potassium 3.8 (3.5-5.1) mmol/L Chloride 98 (98-107) mmol/L Carbon Dioxide 26 (22-30) mmol/L Anion Gap 13 mmol/L BUN 29 H (7-17) mg/dL Creatinine 0.83 (0.52-1.04) mg/dL Est GFR (CKD-EPI)AfAm 75 (>60 ml/min/1.73 sqM) Est GFR (CKD-EPI)NonAf 65 (>60 ml/min/1.73 sqM) Glucose 100 H (74-99) mg/dL Plasma Lactic Acid Joni (0.7-2.0) mmol/L Calcium 9.5 (8.4-10.2) mg/dL Magnesium 2.2 (1.6-2.3) mg/dL Total Bilirubin 1.2 (0.2-1.3) mg/dL AST 27 (14-36) U/L ALT 16 (4-34) U/L Alkaline Phosphatase 62 (38-126) U/L NT-Pro-B Natriuret Pep 928 pg/mL Total Protein 7.3 (6.3-8.2) g/dL Albumin 4.4 (3.5-5.0) g/dL 05/05/23 Range/Units 20:38 WBC (3.8-10.6) k/uL RBC (3.80-5.40) m/uL Hgb (11.4-16.0) gm/dL Hct (34.0-46.0) % MCV (80.0-100.0) fL MCH (25.0-35.0) pg MCHC (31.0-37.0) g/dL RDW (11.5-15.5) % Plt Count (150-450) k/uL MPV Neutrophils % % Lymphocytes % % Monocytes % % Eosinophils % % Basophils % % Neutrophils # (1.3-7.7) k/uL Lymphocytes # (1.0-4.8) k/uL Monocytes # (0-1.0) k/uL Eosinophils # (0-0.7) k/uL Basophils # (0-0.2) k/uL PT (10.0-12.5) sec INR (<1.2) APTT (22.0-30.0) sec Sodium (137-145) mmol/L Potassium (3.5-5.1) mmol/L Chloride (98-107) mmol/L Carbon Dioxide (22-30) mmol/L Anion Gap mmol/L BUN (7-17) mg/dL Creatinine (0.52-1.04) mg/dL Est GFR (CKD-EPI)AfAm (>60 ml/min/1.73 sqM) Est GFR (CKD-EPI)NonAf (>60 ml/min/1.73 sqM) Glucose (74-99) mg/dL Plasma Lactic Acid Joni 1.4 (0.7-2.0) mmol/L Calcium (8.4-10.2) mg/dL Magnesium (1.6-2.3) mg/dL Total Bilirubin (0.2-1.3) mg/dL AST (14-36) U/L ALT (4-34) U/L Alkaline Phosphatase (38-126) U/L NT-Pro-B Natriuret Pep pg/mL Total Protein (6.3-8.2) g/dL Albumin (3.5-5.0) g/dL Disposition <Chelsey Clay Last Filed: 05/05/23 19:26> Is patient prescribed a controlled substance at d/c from ED?: No Time of Disposition: 21:00 <Onesimo Capone - Last Filed: 05/05/23 21:14> Clinical Impression: Dyspnea Disposition: HOME SELF-CARE Instructions (If sedation given, give patient instructions): Chronic Bronchitis (ED) Referrals: Boaz Chaudhary MD [Primary Care Provider] - 1-2 days
[2023-05-05 19:32] VITALS: RESP 18; TEMP 98.4
[2023-05-05] MEDS ORDERED: IPRATROPIUM-ALBUTEROL 3 ML NEB INHALATION STA (20:28)
[2023-05-05 20:47] LABS: Basophils % (A) 0 %; Eosinophils # (A) 0.1 k/uL (0-0.7); Eosinophils % (A) 1 %; HCT 45.6 % (34.0-46.0); HGB 15.6 gm/dL (11.4-16.0); Lymphocytes # (A) 2.1 k/uL (1.0-4.8); Lymphocytes % (A) 24 %; MCH 33.2 pg (25.0-35.0); MCHC 34.2 g/dL (31.0-37.0); Mean Platelet Volume 8.7; Monocytes # (A) 0.5 k/uL (0-1.0); Monocytes % (A) 6 %; Neutrophils # (A) 5.9 k/uL (1.3-7.7); Neutrophils % (A) 68 %; Platelet Count 157 k/uL (150-450); RDW 12.9 % (11.5-15.5); WBC 8.6 k/uL (3.8-10.6)
[2023-05-05 20:58] LABS: ALT 16 U/L (4-34); AST 27 U/L (14-36); African American GFR (CKD) 75 (>60 ml/min/1.73 sqM); Albumin 4.4 g/dL (3.5-5.0); Alkaline Phosphatase 62 U/L (38-126); Anion Gap 13 mmol/L; Blood Urea Nitrogen 29 mg/dL (7-17); Calcium 9.5 mg/dL (8.4-10.2); Carbon Dioxide 26 mmol/L (22-30); Chloride 98 mmol/L (98-107); Glucose 100 mg/dL (74-99); Magnesium 2.2 mg/dL (1.6-2.3); Non-African American GFR(CKD) 65 (>60 ml/min/1.73 sqM); Potassium 3.8 mmol/L (3.5-5.1); Sodium 137 mmol/L (137-145); Total Bilirubin 1.2 mg/dL (0.2-1.3); Total Protein 7.3 g/dL (6.3-8.2)
--- NOTE | 2023-05-05 21:00 | XR ---
EXAMINATION TYPE: XR chest 1V portable DATE OF EXAM: 05/05/2023 8:53 PM CLINICAL INDICATION:Female, 83 years old with history of chf; [facility] COMPARISON: Chest radiograph 08/14/2022 TECHNIQUE: XR chest 1V portable Frontal view of the chest. FINDINGS: Lungs/Pleura: Subsegmental atelectasis is present in the lung bases. No evidence of pleural effusion or pneumothorax. Basilar scarring is identified. Pulmonary vascularity: Unremarkable. Heart/mediastinum: Cardiomediastinal silhouette is unremarkable. Atherosclerotic calcifications are seen in the aorta. Musculoskeletal: Sternotomy wires are identified. IMPRESSION: Chronic findings without evidence of acute process
[2023-05-05 21:07] LABS: NT-Pro-B-Type Natriuretic Pept 928 pg/mL
[2023-05-05 21:10] LABS: INR 2.4 (<1.2); Partial Thromboplastin Time 33.6 sec (22.0-30.0); Prothrombin Time 23.8 sec (10.0-12.5)
[2023-05-05 21:44] VITALS: BP 134/62; PULSE 77
== END 2023-05-05 21:42 | disposition home or self-care (01) ==
LOC: EC 18:37
DX: R06.00 Dyspnea, unspecified (principal); I48.91 Unspecified atrial fibrillation; J44.89 Other specified chronic obstructive pulmonary disease; Z86.59 Personal history of other mental and behavioral disorders; Z87.891 Personal history of nicotine dependence; Z79.01 Long term (current) use of anticoagulants; Z79.51 Long term (current) use of inhaled steroids; Z79.899 Other long term (current) drug therapy
CPT/HCPCS: 36415; 71045; 80053; 83605; 83735; 83880; 84484; 85025; 85610; 85730; 93005; 99284

== ENCOUNTER → 2023-07-15 | Outpatient (CLI) | payer MEDICARE, OTHER ==
[2023-07-15 17:29] LABS: African American GFR (CKD) 90 (>60 ml/min/1.73 sqM); Blood Urea Nitrogen 24 mg/dL (7-17); Non-African American GFR(CKD) 78 (>60 ml/min/1.73 sqM)
--- NOTE | 2023-07-15 18:25 | CT ---
EXAMINATION TYPE: CT chest w con DATE OF EXAM: 07/15/2023 COMPARISON: Radiograph 06/15/2023 HISTORY: 83-year-old female R06.02, SOB, Chronic cough, r/o PE. TECHNIQUE: Contiguous axial scanning of the chest after the administration of 100 ml mL of Isovue 300 . Coronal/sagittal reconstructions performed. CT DLP: 262.3mGycm. Automatic exposure control utilized for a dose reduction. FINDINGS: Median sternotomy wires are present. Prosthetic aortic valve. Heart normal size without pericardial e ffusion. Moderate atherosclerotic arch calcifications with conventional branching anatomy. No thoracic lymphadenopathy by CT size criteria. Moderate emphysematous change. Biapical pleural parenchymal scarring. Some strandy scarring or atelec tasis in the lung bases. No consolidation or pleural effusion. 4 mm anterior left midlung pulmonary nodule of questionable clinical significance. There is a tiny hiatal hernia. Visualized upper abdomen shows moderate atherosclerotic calcifications within the abdominal aorta. Bones: No osseous destructive process. IMPRESSION: 1. COPD with moderate emphysema. 2. No focal infiltrate seen. 3. A 4 mm anterior left midlung pulmonary nodule is of questionable clinical significance. Consider 1 2 month follow-up to reassess. 4. Tiny hiatal hernia.
== END | disposition home or self-care (01) ==
LOC: RADCTMAIN 16:27
PROVIDERS: ATTEND Internal Medicine
DX: J43.9 Emphysema, unspecified (principal); R91.1 Solitary pulmonary nodule; K44.9 Diaphragmatic hernia without obstruction or gangrene
CPT/HCPCS: 82565; 84520; 71260; 36415; Q9967

== ENCOUNTER → 2024-03-15 | Outpatient (CLI) | payer MEDICARE, OTHER ==
--- NOTE | 2024-03-15 11:55 | MM ---
Reason for Exam: Screening (asymptomatic). Last screening mammogram was performed 12 month(s) ago. Patient History: Menarche at age 10. First Full-Term at age 18. Hysterectomy at age 67. Postmenopausal. Other cancer, age 58. Estrogen for 10 years from age 49 until age 59. Hormonal Contraceptives for 2 years from age 22 until age 24. 1983, Benign Excisional Biopsy on the right side. 03/04/2006, Benign Core Biopsy on the left side. Paternal aunt had breast cancer, age 40. Maternal aunt had breast cancer, age 79. Sister had breast cancer, age 60. Mother had breast cancer, age 79. Risk Values: Sarahi 5 year model risk: 10.7%. NCI Lifetime model risk: 11.9%. Prior Study Comparison: 02/25/2022 Bilateral MG 3D screening mammo w/cad, [facility]. 02/26/2023 Bilateral MG 3D screening mammo w/cad, [facility]. 03/06/2023 Left MG 3D work up w/cad , [facility]. Tissue Density: The breasts are heterogeneously dense, which may obscure small masses. Findings: Analyzed By CAD. Right breast: There is no suspicious group of microcalcifications or new suspicious mass. Benign-appearing calcifications right breast. Left breast: There is no suspicious group of microcalcifications or new suspicious mass. Benign-appearing calcifications left breast. Overall Assessment: Benign, BI-RAD 2 Management: Screening Mammogram of both breasts in [address] [facility] will attempt to contact patient to return for supplemental views and ultrasound if indicated. Patient should continue monthly self-breast exams. A clinical breast exam by your physician is recommended on an annual basis. This exam should not preclude additional follow-up of suspicious palpable abnormalities. Note on Sarahi scores and lifetime risk: 1. A Sarahi score greater than 3% is considered moderate risk. If this is the case, consider specialist referral to assess eligibility for a risk reducing agent. 2. If overall lifetime risk for the development of breast cancer is 20% or higher, the patient may qualify for future screening with alternating mammogram and breast MRI. [facility], , 03/15/2024 11:50 AM. Electronically signed and approved by: Thomas Archer DO
== END | disposition home or self-care (01) ==
LOC: RADMAMWWP 10:34
PROVIDERS: ATTEND Family Medicine
CPT/HCPCS: 77063; 77067